=== PATIENT | male | born 1950 | race Caucasian/White ===

== ENCOUNTER 2017-08-23 12:45 | Outpatient (RCR) | payer OTHER, MEDICARE, SELFPAY ==
[2017-07-27 12:26] LABS: Prothrombin Time Fingerstick 26.6 SEC (11.9-14.4)
[2017-08-23 13:01] LABS: Prothrombin Time Fingerstick 27.5 SEC (11.9-14.4)
== END 2017-08-23 13:00 | disposition home or self-care (01) ==
LOC: MTLAB 12:45
PROVIDERS: Family Provider Family Medicine; PCP Family Medicine; Visit Provider Internal Medicine Cardiovascular Disease
DX: Z79.01 Long term (current) use of anticoagulants (principal); I51.9 Heart disease, unspecified
CPT/HCPCS: 36416; 85610

== ENCOUNTER 2017-09-20 10:18 | Outpatient (RCR) | payer OTHER, MEDICARE, SELFPAY ==
[2017-09-20 12:57] LABS: International Normalized Ratio 2.6; Prothrombin Time (Protime)PT. 27.2 SECONDS (11.7-14.9)
[2017-09-20 13:00] LABS: AST(SGOT) 21 U/L (15-37); Alanine Aminotransfer ALT/SGPT 34 U/L (16-61); Albumin, Serum 3.9 g/dL (3.2-5.0); Alkaline Phosphatase 98 U/L (45-117); Bilirubin, Direct 0.22 mg/dL (0.00-0.30); Cholesterol 157 mg/dL (200); Globulin 3.9 g/dL (2.2-4.2); High Density Lipoprotein 38 mg/dL; Protein, Total 7.8 g/dL (6.4-8.2); Triglycerides 251 mg/dL; Very Low Density Lipoprotein 50 mg/dL (5-40)
== END 2017-09-20 15:00 | disposition home or self-care (01) ==
LOC: MTLAB 10:18
PROVIDERS: Family Provider Family Medicine; PCP Family Medicine; Visit Provider Internal Medicine Cardiovascular Disease
DX: E78.5 Hyperlipidemia, unspecified (principal); Z79.899 Other long term (current) drug therapy; Z79.01 Long term (current) use of anticoagulants
CPT/HCPCS: 36415; 80061; 80076; 85610

== ENCOUNTER → 2017-09-26 11:54 | Outpatient (CLI) | payer OTHER, MEDICARE, SELFPAY ==
[2017-09-26 14:12] LABS: Anion Gap 8 (5-15); BUN 19 mg/dL (7-18); BUN/Creat Ratio 15.2 RATIO (10-20); Chloride 103 mmol/L (98-107); Creatinine, Serum 1.25 mg/dL (0.70-1.30); EST Glomerular Filtration Rate 62 mL/min (>60); Est Glom Filt Rate - Afr Amer 74 mL/min (>60); Glucose 174 mg/dL (74-106); Potassium 4.4 mmol/L (3.5-5.1); Sodium Level 139 mmol/L (136-145)
[2017-09-26 14:40] LABS: Microalbumin:Creatinine Ratio 112.2 mg/g CRE (<30 mg/g CRE)
== END ==
PROVIDERS: Family Provider Family Medicine; PCP Family Medicine; Visit Provider Family Medicine
DX: E11.9 Type 2 diabetes mellitus without complications (principal)
CPT/HCPCS: 36415; 80048; 82043; 82570

== ENCOUNTER 2017-10-21 09:19 | Day surgery (SDC) | payer OTHER, MEDICARE, SELFPAY ==
--- NOTE | 2017-10-21 07:30 | AMP_PTH ---
PATIENT: GLENNA MUNGUIA LOC: [facility] [place] U#:[id number] AGE/SX: 66/M ROOM: RE10/21/[address]: Dr. José Miguel Castillo MD : 1950 BED: DIS: 10/21/2017 SPEC #: [id number] RECD: 10/21/17 12:40 STATUS: ORALIA RENba #: [id number] ALEC: 10/21/17 07:[address]: José Miguel Castillo DEPT: SURGICAL PATHOLOGY RECD BY: Dougie Gomez ENTERED: 10/21/17 12:48 SP TYPE: Amputation OTHR DR: Dr. Shahriar Haynes MD Tissues: Finger, NOS Procedures: Decalcification bone/plaque Special Stain Group I Surgery Specimen Level IV AFB Stain (control) GMS Stain (control) HEADER OPERATION: Debridement open fracture with amputation, index finger PRE-OP DIAGNOSIS: Open fracture tuft of distal phalanx left index finger; partial transphalangeal amputation distal phalanx left index finger; Open wound left index fingertip with comminuted nailbed injury TISSUE SUBMITTED: Left index fingertip MICROSCOPIC DIAGNOSIS Left index fingertip, amputation: Focal ulceration with associated acute and chronic inflammation, hemorrhage and bacterial colonizaton. Pieces of bone negative for acute osteomyelitis. Special stains for acid fast bacilli and fungi are negative for organisms; matched controls are appropriate. MARJORIE:bonita 10/26/17 MICROSCOPIC DESCRIPTION Slides are reviewed. GROSS DESCRIPTION Received in fixative is one container labeled with the patient's name and designated left index fingertip. The specimen consists of a portion of digit measuring 3 x 2.5 x 1 cm. A focal area of ulceration is noted at the tip and extending proximally and measures 2 x 0.6 cm. Also present in the container is a detached piece of skin and nail measuring in aggregate 2 x 1.5 x 0.6 cm. Also present in the container is a detached piece of bone measuring 1 x 0.5 x 0.5 cm. Carnival Worker sections are submitted in three cassettes as follows: 1 ? ulcerated area, 2 ? bone from the fingertip, 3 ? detached piece of bone. Cassettes 2 and 3 are submitted after decalcification. / MARJORIE:bonita 10/21/17 TC:2 CPT: 95991, 48004, 11572 x2
[2017-10-21 09:54] VITALS: BP 161/72; PULSE 48; RESP 16; TEMP 36.1; O2SAT 97; BMI 37.6
--- NOTE | 2017-10-21 10:40 | PCM.HP.BLA ---
History and Physical Date of Admission: 10/21/17 HISTORY OF PRESENT ILLNESS 66 year old man presents with a 1 week history of an injury to his left index finger tip from an oscillating saw injury. He went to the urgent care center where an xray showed a tuft fracture of the distal phalanx as a transphalangeal amputation. The tip was cleansed and wrapped. He was placed on Keflex. He presents today for further evaluation and treatment. Patient denies any fever. PAST MEDICAL HISTORY CAD. Atrial fibrillation. Inguinal hernia. CVA. SAUD. Hyperlipidemia. Hypertension. DVT. PAST SURGICAL HISTORY Hernia repair. CABG. MEDICATIONS Lipitor. Aspirin. Amiodarone. Lexapro. Lasix. Lopressor. MVI. [place]. Coumadin. ALLERGIES None. FAMILY HISTORY Noncontributory. SOCIAL HISTORY Patient does not smoke. Patient does not drink alcohol. REVIEW OF SYSTEMS General - Denies fever, fatigue, and weight loss. Eyes - Denies cataracts, glaucoma. ENT - Denies nasal congestion, sore throat. Endocrine - Denies excessive thirst and urination. Skin - Has open fracture with partial amputation left index finger tip. Musculoskeletal - Denies joint pain, joint stiffness, weakness of muscles and joints, back pain, and arthritis. Neuro - Denies headaches. Cardiovascular - Denies chest pain. Denies fatigue. Had CVA. Had CABG. Psych - Denies anxiety and depression. Respiratory - Denies cough and shortness of breath. Gastrointestinal - Denies nausea, vomiting, diarrhea, and constipation. Hematologic - Has abnormal bruising on Coumadin. Has DVT. Genitourinary - Denies hematuria and urinary frequency. PHYSICAL EXAMINATION General - Alert and oriented. HEENT - PERRL. EOMI. Throat is clear. Neck - Supple and nontender. No cervical andenopathy. Lungs - Clear to auscultation. Heart - Regular rate and rhythm. Abdomen - Soft and nondistended. Extremities - FROM except for left index finger where there is a distal tip amputation through tuft of distal phalanx. There is a comminuted nail bed injury on ulnar aspect with nail plate missing. Measures 1 x 0.6 cm. There is an open fracture. There is a 2 cm laceration extending from nail bed injury onto volar aspect of finger. He can flex and extend his index finger. Fingers are warm with good capillary refill. Radial pulses are palpable. No axillary adenopathy. Neuro - CN II - XII grossly intact. IMPRESSION 1. Open fracture tuft of distal phalanx left index finger. 2. Partial transphalangeal amputation distal phalanx left index finger. 3. Open wound left index finger tip with comminuted nail bed injury. PLAN Xray reviewed. Recommend operative debridement of this open fracture with partial ostectomy for osteomyelitis. Patient wanted to know options for saving length of the finger. Told him the nail bed would need to be repaired with a possible nail bed graft from the big toe. If there is too much destruction of the nail bed secondary to the oscillating nature of the injury, then can excise the nail bed complex and proceed with a cross finger flap and skin grafting. This would necessitate a second procedure at 3 weeks which is a division and inset of the flap. There is an increased risk of finger stiffness from his age. 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 He doesn't know if he can take that much time off with two surgeries. If there is too much destruction secondary to the oscillating nature of the injury, then would proceed with a revision amputation. This would get him back to work the quickest. He understands that an amputation may be necessary and wishes to proceed. If the finger length can be preserved without too much trouble then proceed. Otherwise proceed with the amputation. Surgery can be done under digital metacarpal block and IV sedation on an outpatient basis. Patient was informed of the risks and complications of the procedure including alternatives to surgery. These were discussed with him personally. He voices understanding and wishes to proceed. Some of the risks and complications were included in a form from the [employer]. Some of the risks and complications that were discussed included but were not inclusive of failure to diagnose including symptom relief, pain, infection, numbness, stiffness, loss of digit, RSD, need for further surgery, contracture and wound healing problems. Will proceed with the surgery tomorrow. Continue his Keflex.
[2017-10-21] MEDS: Cefazolin 2 GM in 0.9% Normal Saline 100 ML IV (11:26)
--- NOTE | 2017-10-21 12:21 | PCM.IMDPSTOP ---
Immediate Post-Op Note Date of Procedure: 10/21/17 Primary Surgeon/Physician: José Miguel Castillo lumber sticker: None Pre-Operative Diagnosis: 1. Open fracture tuft of distal phalanx left index finger. 2. Partial transphalangeal amputation distal phalanx left index finger. 3. Open wound left index finger tip with comminuted nail bed injury. Post-Operative Diagnosis: 1. Open comminuted fracture distal phalanx left index finger. 2. Complete comminuted transphalangeal amputation distal phalanx left index finger. 3. Open wound left index finger tip with comminuted nail bed injury. Surgery/Procedure Performed:: Revision amputation left index finger through distal middle phalanx. Description of Surgical Findings:: 66 year old man presents with a 1 week history of an injury to his left index finger tip from an oscillating saw injury. He went to the urgent care center where an xray showed a tuft fracture of the distal phalanx as a transphalangeal amputation. The tip was cleansed and wrapped. He was placed on Keflex. He presents today for further evaluation and treatment. Patient denies any fever. Today the patient underwent revision amputation left index finger through distal middle phalanx. Total tourniquet time -36 minutes. Estimated Blood Loss: 2 ml. Specimen's removed: Amputation stump left index finger tip to Pathology. Drains: None. Type of Anesthesia:: Local - digital metacarpal block with Marcaine by Anesthesia. - Admit VTE Documentation VTE Present on Admission: No - Patient is on Coumadin. VTE Mechan Device Prophylaxis: SCD's VTE Pharm Prophylaxis ordered?: No
--- NOTE | 2017-10-21 12:28 | PCM.DC ---
You will use the following diet at home:: No restrictions Discharge Activity: May not drive while taking narcotic pain medications., May Shower - in one day. Place plastic bag over left hand when showering., - - no heavy lifting with left hand. May shower in (days): 1 - wear plastic bag over left hand when showering. May resume sexual activity in: No Restrictions Weight Bearing Status: Weight bearing as tolerated Lifting Restrictions: no heavy lifting with left hand. Keep extremity elevated above heart level: Left Arm Call your doctor if your incision/area has: Continuous Slow Oozing, Sudden Increased Bleeding, Increased Pain/ Swelling, Increased Redness, Foul Smelling Discharge, Swelling at the incision site Call your doctor if you observe: Fever of 101 or Higher, Coldness, Increased Pain, Shortness of breath, Chest pain, Calf discomfort, Uncontrolled pain Suture Line Care: - - after dressing removed in the office, apply antibiotic ointment to suture line daily. Change Dressing in (Days):: 7 - will change dressing in office. Cleanse incision/area with: - - wear plastic bag over left hand when showering. Allergies/Adverse Reactions: Allergies No Known Allergies Allergy (Verified 10/20/17 16:10) Medications to take at Discharge Escitalopram Oxalate [Lexapro] 20 mg PO DAILY 11/16/13 Aspirin [Aspirin, Baby] 81 mg PO DAILY@0800 #30 tab.chew 12/18/13 Atorvastatin Calcium [Lipitor] 80 mg PO QHS #30 tablet 12/18/13 Multivitamins,Therapeutic [Multivitamin] 1 tablet PO DAILYCM #30 tablet 12/18/13 Warfarin [Coumadin] 1 mg PO UD 03/22/14 Amiodarone HCl [Cordarone] 200 mg PO DAILY 09/26/14 Furosemide [Lasix] 40 mg PO DAILY PRN PRN 09/26/14 Metoprolol Tartrate [Lopressor (beta dario)] 50 mg PO BID 09/26/14 Oxycodone HCl/Acetaminophen [Percocet 5/325] 1 - 2 tab PO 4X/DAY PRN PRN 4 Days #30 tab 10/21/17 The following prescriptions were given: Oxycodone HCl/Acetaminophen [Percocet 5/325] 1 - 2 tab PO 4X/DAY PRN PRN 4 Days #30 tab PRN Reason: Pain Primary Care Physician: Shahriar Haynes MD [Primary Care Provider] - Please Follow Up With: Joés Miguel Castillo MD When: one week. call [phone] for appt. Proposed Discharge Date: 10/21/17
--- NOTE | 2017-10-21 12:31 | DCINST_ITS ---
You will use the following diet at home:: No restrictions Discharge Activity: May not drive while taking narcotic pain medications., May Shower - in one day. Place plastic bag over left hand when showering., - - no heavy lifting with left hand. May shower in (days): 1 - wear plastic bag over left hand when showering. May resume sexual activity in: No Restrictions Weight Bearing Status: Weight bearing as tolerated Lifting Restrictions: no heavy lifting with left hand. Keep extremity elevated above heart level: Left Arm Call your doctor if your incision/area has: Continuous Slow Oozing, Sudden Increased Bleeding, Increased Pain/ Swelling, Increased Redness, Foul Smelling Discharge, Swelling at the incision site Call your doctor if you observe: Fever of 101 or Higher, Coldness, Increased Pain, Shortness of breath, Chest pain, Calf discomfort, Uncontrolled pain Suture Line Care: - - after dressing removed in the office, apply antibiotic ointment to suture line daily. Change Dressing in (Days):: 7 - will change dressing in office. Cleanse incision/area with: - - wear plastic bag over left hand when showering. Allergies/Adverse Reactions: Allergies No Known Allergies Allergy (Verified 10/20/17 16:10) Medications to take at Discharge Escitalopram Oxalate [Lexapro] 20 mg PO DAILY 11/16/13 Aspirin [Aspirin, Baby] 81 mg PO DAILY@0800 #30 tab.chew 12/18/13 Atorvastatin Calcium [Lipitor] 80 mg PO QHS #30 tablet 12/18/13 Multivitamins,Therapeutic [Multivitamin] 1 tablet PO DAILYCM #30 tablet Warfarin [Coumadin] 1 mg PO UD 03/22/14 Amiodarone HCl [Cordarone] 200 mg PO DAILY 09/26/14 Furosemide [Lasix] 40 mg PO DAILY PRN PRN 09/26/14 Metoprolol Tartrate [Lopressor (beta dario)] 50 mg PO BID 09/26/14 Oxycodone HCl/Acetaminophen [Percocet 5/325] 1 - 2 tab PO 4X/DAY PRN PRN 4 Days #30 tab 10/21/17 The following prescriptions were given: Oxycodone HCl/Acetaminophen [Percocet 5/325] 1 - 2 tab PO 4X/DAY PRN PRN 4 Days #30 tab PRN Reason: Pain Primary Care Physician: Shahriar Haynes MD [Primary Care Provider] - Please Follow Up With: José Miguel Castillo MD When: one week. call [phone] for appt. Proposed Discharge Date: 10/21/17
[2017-10-21 12:45] VITALS: BP 152/79; BP 161/72; PULSE 50; RESP 16; TEMP 36.1; O2SAT 95
--- NOTE | 2017-10-21 17:45 | PCM.OPRPT ---
Report of Operation Date of Procedure: 10/21/17 Pre-Operative Diagnosis: 1. Open fracture tuft of distal phalanx left index finger. 2. Partial transphalangeal amputation distal phalanx left index finger. 3. Open wound left index finger tip with comminuted nail bed injury. Post-Operative Diagnosis: 1. Open comminuted fracture distal phalanx left index finger. 2. Complete comminuted transphalangeal amputation distal phalanx left index finger. 3. Open wound left index finger tip with comminuted nail bed injury. Surgery/Procedure Performed:: Revision amputation left index finger through distal middle phalanx. Description of Surgical Findings:: 66 year old man presents with a 1 week history of an injury to his left index finger tip from an oscillating saw injury. He went to the urgent care center where an xray showed a tuft fracture of the distal phalanx as a transphalangeal amputation. The tip was cleansed and wrapped. He was placed on Keflex. Patient denies any fever. Patient was informed of the risks and complications of the procedure including alternatives to surgery. These were discussed with him personally. He voices understanding and wishes to proceed. Some of the risks and complications were included in a form from the [employer]. Some of the risks and complications that were discussed included but were not inclusive of failure to diagnose including symptom relief, pain, infection, numbness, stiffness, loss of digit, RSD, need for further surgery, contracture and wound healing problems. Total tourniquet time - 36 minutes. attendance secretary: None Type of Anesthesia:: Local - digital metacarpal block with Marcaine by Anesthesia. Specimen's removed: Amputation stump left index finger tip to Pathology. Drains: None. Estimated Blood Loss (mL): 2 ml. Description of Procedure: Patient was taken to OR in supine position and his left hand was prepped and draped in the usual fashion. He had undergone a digital metacarpal block with Marcaine in the preop area by Anesthesia. SCD's were placed for DVT prophylaxis. Perioperative antibiotics were given intravenously. The finger tourniquet was administered. Upon loupe magnification i initially debrided the bony fracture. I removed the nail plate to get better exposure. The fracture was more than just a chip fracture on xray. It was a complex comminuted fracture with missing bone. After debridement, most of the bone was gone. At this point, it would make no sense to try and save the length of the finger since there is no underlying bony support for the tip. So I decided to proceed with the tip amputation. I initially tried to amputate at the level of the DIP joint. I marked dorsal and volar skin flaps with the volar flap being longer to advance anteriorly for closure. Incisions were made through the skin and the extensor and flexor tendons until the DIP joint was seen. After the tip amputation, the specimen was sent to Pathology for analysis. The articular surface of the middle phalanx was roughened and not smooth indicative of some arthritic changes. I rasped some of the irregularities to make it smoother for the skin flap. I dissected free the ulnar and radial digital nerves and placed them on stretch. I excised the ends and allowed the digital nerves to retract proximally to minimize neuroma formation. The wound was irrigated with saline. I tried to closed the volar skin flap anteriorly. It was a tight fit. I had to shorten the volar skin flap a little bit because of traumatic lacerations present that I felt may increase risk of suboptimal healing so further debridement was done. Therefore I had to shorten the bone a little bit more to allow a tension free closure. I went just proximal to the articular surface and cut the distal portion of the middle phalanx with bone cutters. This specimen went with the rest of the tissue to Pathology. The bony edges were rasped to smooth out the edges. The skin flaps were then easily closed without tension. I closed the skin flaps in multiple layers with 5-0 Monocryl interrupted sutures for the dermis. The skin was approximated with 5-0 Nylon simple interrupted sutures. The tourniquet was released after 36 minutes. Hemostasis was obtained with gentle pressure and elevation. Antibiotic ointment was applied to the suture line followed by xeroform gauze. This was then covered with 2x2 gauze and 2 inch guilherme wrap. Patient tolerated the procedure well and was sent to PACU in satisfactory condition. He was sent home on pain medication. He states he still has antibiotics at home from the urgent care center that he will finish. He will keep his left hand elevated and wear a plastic bag over his left hand when showering. He will followup in the office in a week for a wound check and for discussion of the pathology report. The sutures will be removed in 2-3 weeks. After the dressing removed in the office, will encourage range of motion exercises to minimize stiffness. If stiffness persists, then will set him up with OT for range of motion exercises, strengthening and edema management. Grafts/Implants Used: None. - Complications None. - Admit VTE Documentation VTE Present on Admission: No - Patient is on Coumadin. VTE Mechan Device Prophylaxis: SCD's VTE Pharm Prophylaxis ordered?: No Code Visit Surgery Charges CPT - 47233 ICD-10 - S62.631B, S68.611A, S61.301A
== END 2017-10-21 12:45 | disposition home or self-care (01) ==
LOC: SDC 09:24 → AC 09:24
PROVIDERS: Family Provider Family Medicine; PCP Family Medicine; Visit Provider Surgery
PROC: (CPT 26236; principal; 2017-10-21 07:15)
DX: S62.631B Displaced fracture of distal phalanx of left index finger, initial encounter for open fracture (principal); W29.8XXA Contact with other powered hand tools and household machinery, initial encounter; S68.621A Partial traumatic transphalangeal amputation of left index finger, initial encounter; Y92.9 Unspecified place or not applicable; Y99.9 Unspecified external cause status; I25.10 Atherosclerotic heart disease of native coronary artery without angina pectoris; I48.91 Unspecified atrial fibrillation; G47.33 Obstructive sleep apnea (adult) (pediatric); E78.5 Hyperlipidemia, unspecified; I10 Essential (primary) hypertension; Z86.718 Personal history of other venous thrombosis and embolism; Z86.73 Personal history of transient ischemic attack (TIA), and cerebral infarction without residual deficits; Z79.899 Other long term (current) drug therapy; Z79.82 Long term (current) use of aspirin; Z79.01 Long term (current) use of anticoagulants
CPT/HCPCS: 26236; 64450; 88305; 88311; 88312; J7120

== ENCOUNTER 2017-11-11 09:34 | Outpatient (RCR) | payer OTHER, MEDICARE, SELFPAY ==
[2017-11-11 12:22] LABS: Prothrombin Time (Protime)PT. 31.1 SECONDS (11.7-14.9)
== END 2017-11-22 13:21 | disposition home or self-care (01) ==
LOC: MTLAB 09:34
PROVIDERS: Family Provider Family Medicine; PCP Family Medicine; Visit Provider Internal Medicine Cardiovascular Disease
DX: Z79.01 Long term (current) use of anticoagulants (principal)
CPT/HCPCS: 36415; 36416; 85610

== ENCOUNTER 2017-11-28 11:35 | Outpatient (RCR) | payer OTHER, MEDICARE, SELFPAY ==
[2017-11-28 11:55] LABS: Prothrombin Time Fingerstick 29.3 SEC (11.9-14.4)
== END 2017-11-28 12:00 | disposition home or self-care (01) ==
LOC: MTLAB 11:35
PROVIDERS: Family Provider Family Medicine; PCP Family Medicine; Visit Provider Internal Medicine Cardiovascular Disease
DX: Z79.01 Long term (current) use of anticoagulants (principal)
CPT/HCPCS: 36416; 85610

== ENCOUNTER 2018-03-14 08:55 | Outpatient (RCR) | payer OTHER, MEDICARE, SELFPAY ==
[2018-03-14 09:16] LABS: Prothrombin Time Fingerstick 30.3 SEC (11.9-14.4)
== END 2018-03-14 10:00 | disposition home or self-care (01) ==
LOC: MTLAB 08:55
PROVIDERS: Family Provider Family Medicine; PCP Family Medicine; Visit Provider Internal Medicine Cardiovascular Disease
DX: Z79.01 Long term (current) use of anticoagulants (principal)
CPT/HCPCS: 36416; 85610

== ENCOUNTER → 2018-03-30 10:26 | Outpatient (CLI) | payer OTHER, MEDICARE, SELFPAY ==
[2018-03-30 12:37] LABS: Microalbumin,Random Urine 65.6 mg/L (NO RANGE EST.); Microalbumin:Creatinine Ratio 30.8 mg/g CRE (<30 mg/g CRE)
[2018-03-30 12:45] LABS: AST(SGOT) 24 U/L (15-37); Alanine Aminotransfer ALT/SGPT 31 U/L (16-61); Albumin, Serum 4.3 g/dL (3.2-5.0); Alkaline Phosphatase 85 U/L (45-117); Anion Gap 8 (5-15); BUN 24 mg/dL (7-18); BUN/Creat Ratio 20.7 RATIO (10-20); Bilirubin, Direct 0.36 mg/dL (0.00-0.30); Chloride 108 mmol/L (98-107); Cholesterol 133 mg/dL (200); Creatinine, Serum 1.16 mg/dL (0.70-1.30); EST Glomerular Filtration Rate 67 mL/min (>60); Est Glom Filt Rate - Afr Amer 81 mL/min (>60); Globulin 3.9 g/dL (2.2-4.2); Glucose 136 mg/dL (74-106); High Density Lipoprotein 42 mg/dL; Potassium 4.7 mmol/L (3.5-5.1); Protein, Total 8.2 g/dL (6.4-8.2); Sodium Level 141 mmol/L (136-145); Triglycerides 100 mg/dL; Very Low Density Lipoprotein 20 mg/dL (5-40)
== END ==
PROVIDERS: Family Provider Family Medicine; PCP Family Medicine; Visit Provider Family Medicine
DX: E11.9 Type 2 diabetes mellitus without complications (principal)
CPT/HCPCS: 36415; 80048; 80061; 80076; 82043; 82570

== ENCOUNTER 2018-05-08 10:52 | Outpatient (RCR) | payer OTHER, MEDICARE, SELFPAY ==
[2018-05-08 11:05] LABS: Prothrombin Time Fingerstick 33.1 SEC (11.9-14.4)
== END 2018-05-08 12:00 | disposition home or self-care (01) ==
LOC: MTLAB 10:52
PROVIDERS: Family Provider Family Medicine; PCP Family Medicine; Visit Provider Internal Medicine Cardiovascular Disease
DX: I48.0 Paroxysmal atrial fibrillation (principal); Z79.01 Long term (current) use of anticoagulants; Z51.81 Encounter for therapeutic drug level monitoring
CPT/HCPCS: 36416; 85610

== ENCOUNTER → 2018-07-04 12:25 | Outpatient (CLI) | payer OTHER, MEDICARE, SELFPAY ==
[2018-07-04 08:27] VITALS: BMI 37.2
[2018-07-04 12:45] LABS: Prothrombin Time Fingerstick 25.9 SEC (11.9-14.4)
[2018-07-04 14:24] LABS: Hemoglobin A1c 6.9 % (4.2-6.3)
--- OUTSIDE RECORDS SUMMARY | 2018-08-20 14:44 | XMS RPT_ITS ---
:1950 Author Organization OHIP Support Name Relationship Address Phone R Unavailable Unavailable Unavailable TALISHA MUNGUIA Unavailable [address] + [place] [address] R Unavailable Unavailable Unavailable TALISHA MUNGUIA Unavailable [address] + [place] [address] R Unavailable Unavailable Unavailable TALISHA MUNGUIA Unavailable [address] + [place] [address] R Unavailable Unavailable Unavailable TALISHA MUNGUIA Unavailable [address] + [place] [address] R Unavailable Unavailable Unavailable TALISHA MUNGUIA Unavailable [address] + [place] [address] R Unavailable Unavailable Unavailable TALISHA MUNGUIA Unavailable [address] + [place] [address] R Unavailable Unavailable Unavailable TALISHA MUNGUIA Unavailable [address] + [place] [address] R Unavailable Unavailable Unavailable TALISHA MUNGUIA Unavailable [address] + [place] [address] R Unavailable Unavailable Unavailable TALISHA MUNGUIA Unavailable [address] + [place] [address] R Unavailable Unavailable Unavailable TALISHA MUNGUIA Unavailable [address] + [place] [address] R Unavailable Unavailable Unavailable TALISHA MUNGUIA Unavailable [address] + [place] [address] R Unavailable Unavailable Unavailable TALISHA MUNGUIA Unavailable [address] + [place] [address] R Unavailable Unavailable Unavailable TALISHA MUNGUIA Unavailable [address] + [place] [address] R Unavailable Unavailable Unavailable NILDA TALISHA Unavailable [address] + [place] [address] R Unavailable Unavailable Unavailable MUNGUIA, TALISHA Unavailable [address] + [place] [address] R Unavailable Unavailable Unavailable NILDA TALISHA Unavailable [address] + [place] [address] R Unavailable Unavailable Unavailable MUNGUIA, TALISHA Unavailable [address] + [place] [address] R Unavailable Unavailable Unavailable MUNGUIA, TALISHA Unavailable [address] + [place] [address] R Unavailable Unavailable Unavailable MUNGUIA, TALISHA Unavailable [address] + [place] [address] R Unavailable Unavailable Unavailable MUNGUIA, TALISHA Unavailable [address] + [place] [address] Care Team Providers Name Role Phone Shai Solisril Attending Unavailable Haynes, Shahriar Referring Unavailable Will, William Attending Unavailable Will, [place] [employer] Referring Unavailable Haynes, Shahriar Primary Care Unavailable Will, William Attending Unavailable Haynes, Shahriar Primary Care Unavailable Will, William Attending Unavailable Haynes, Shahriar Primary Care Unavailable Will, [place] [employer] Attending Unavailable Haynes, Shahriar Primary Care Unavailable Haynes, Shahriar Attending Unavailable Haynes, Shahriar Referring Unavailable Haynes, Shahriar Primary Care Unavailable SlabJosé Miguel bartlett Attending Unavailable Haynes, Shahriar Referring Unavailable Haynes, Shahriar Primary Care Unavailable SlabyJosé Miguel Attending Unavailable SlabyJosé Miguel Referring Unavailable Haynes, Shahriar Primary Care Unavailable SlabJosé Miguel bartlett Attending Unavailable Slaby, José Miguel Referring Unavailable Haynes, Shahriar Primary Care Unavailable José Miguel Castillo Consulting Unavailable Slaby, José Miguel Attending Unavailable Haynes, Shahriar Referring Unavailable Haynes, Shahriar Primary Care Unavailable Slabdhruv, José Miguel Attending Unavailable Haynes, Shahriar Referring Unavailable Haynes, Shahriar Primary Care Unavailable Lisa Castro Attending Unavailable Lisa Castro Attending Unavailable Phoebe Estevez Attending Unavailable Will, [place] [employer] Attending Unavailable Haynes, Shahriar Primary Care Unavailable Will, [place] [employer] Referring Unavailable Ricci Cabrera Attending Unavailable Haynes, Shahriar Referring Unavailable Haynes, Shahriar Primary Care Unavailable Will, [place] [employer] Attending Unavailable Will, [place] [employer] Referring Unavailable Haynes, Shahriar Primary Care Unavailable Will, [place] [employer] Attending Unavailable Will, [place] [employer] Referring Unavailable Haynes, Shahriar Primary Care Unavailable Haynes, Shahriar Attending Unavailable Haynes, Shahriar Referring Unavailable Haynes, Shahriar Primary Care Unavailable Will, [place] [employer] Attending Unavailable Will, [place] [employer] Referring Unavailable Haynes, Shahriar Primary Care Unavailable PROBLEMS PROBLEMS DATE TYPE CONDITION / CODE ATTENDING STATUS SOURCE 07/04/2018 Unknown Z79.01 - halfway Will, William Active [facility] (current) use of Community anticoagulants / Hospital Z79.01(ICD-10) Repository 07/04/2018 Unknown I48.0 - Paroxysmal Will, [place] [employer] Active [facility] atrial fibrillation / Community I48.0(ICD-10) Hospital Repository 07/04/2018 Unknown Z95.1 - Presence of Will, William Active [facility] aortocoronary bypass Community graft / Z95.1(ICD-10) Hospital Repository 07/04/2018 Unknown I10 - Essential Will, William Active [facility] (primary) Community hypertension / Hospital I10(ICD-10) Repository 07/04/2018 Unknown E78.00 - Pure Will, [place] [employer] Active [facility] hypercholesterolemia, Community unspecified / Hospital E78.00(ICD-10) Repository 07/04/2018 Unknown I50.32 - Chronic Will, [place] [employer] Active [facility] diastolic Community (congestive) heart Hospital failure / Repository I50.32(ICD-10) 05/25/2018 Unknown Z51.81 - Encounter Will, [place] [employer] Active [facility] for therapeutic drug Community level monitoring / Hospital Z51.81(ICD-10) Repository 03/30/2018 Unknown E11.9 - Type 2 Haynes, Shahriar Active [facility] diabetes mellitus Community without complications Hospital / E11.9(ICD-10) Repository 11/28/2017 Unknown I48.91 - Unspecified Roof, Ricci Meda Active [facility] atrial fibrillation / Community I48.91(ICD-10) Hospital Repository 10/23/2017 Unknown G89.18 - Other acute José Miguel Castillo Active [facility] postprocedural pain / Community G89.18(ICD-10) Hospital Repository 11/09/2017 Unknown S62.631B - Displaced José Miguel Castillo Active [facility] fracture of distal Community phalanx of left index Hospital finger, initial Repository encounter for open fracture / S62.631B(ICD-10) 11/09/2017 Unknown S68.621A - Partial José Miguel Castillo Active [facility] traumatic Community transphalangeal Hospital amputation of left Repository index finger, initial encounter / S68.621A(ICD-10) 11/09/2017 Unknown S61.301A - SlabJosé Miguel bartlett Active [facility] Unspecified open Community wound of left index Hospital finger with damage to Repository nail, initial encounter / S61.301A(ICD-10) 09/22/2017 Unknown E78.5 - Will, [place] [employer] Active [facility] Hyperlipidemia, Community unspecified / Hospital E78.5(ICD-10) Repository 09/22/2017 Unknown Z79.899 - Other long Will, William Active [facility] term (current) drug Community therapy / Hospital Z79.899(ICD-10) Repository PROCEDURES PROCEDURES No Procedure Records FoundRESULTS RESULTS HEMOGLOBIN A1C Collected: 07/04/2018 Status: F Source: [place] 12:41 PM [facility] REPOSITORY TYPE CODE TESTS RESULT OUT OF RANGE REFERENCE UNITS LAB L501.9985 4.2-6.3 % High HGB A1C 6.9 Performed By: #### L501.9985 #### [facility] [address] [place] [address] [place], [place], [address] PROTIME W/INR Collected: 07/04/2018 Status: F Source: [place] 12:36 PM [facility] REPOSITORY TYPE CODE TESTS RESULT OUT OF REFERENCE UNITS RANGE LAB L9200.1001 11.9-14.4 SEC High PROTIME ISTAT 25.9 Result Comment: Reference Range 11.9 - 14.4 LAB L9200.2000 Normal INR ISTAT 2.20 Result Comment: Critical Value > 3.5 Performed By: #### L9200.0000 #### [facility] [address] [address] [place], [place] [address] CARDIOLOGY VISIT Observed: 07/04/2018 Status: F Source: [place] REPORT 11:04 AM [facility] REPOSITORY [facility] [address] [place] [address] OFFICE VISIT Date of Service: 07/04/18 MR#: [id number] Acct: [id number] Name: GLENNA MUNGUIA Rep #: [id number] : 1950 Provider: William Solis MD Age/Sex: 67/M [place] [facility] [place]: Signed HPI HPI Chief Complaint: Follow up Details: GLENNA MUNGUIA, is a 67 M who presents to the office today for a cardiovascular outpatient follow-up. He has a history of coronary artery disease status post bypass surgery in November 2013 with a BEGUM to the LAD, SVG to posterior descending artery, and SVG to obtuse marginal branch. He also has a history of paroxysmal atrial fibrillation with cardioversion in 2013 and 2014, pulmonary vein isolation in November 2013, ligation of the left atrial appendage in November 2013, and CVA. He has lost a significant amount of weight by cutting out sugar from his diet. He says that he is breathing so much better. Pt. denies chest, arm, jaw, or neck discomfort. 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 Pt. denies symptoms of CHF, palpitations, worsening/changing lightheadedness, dizziness, near syncope, or syncopal episodes. Pt. denies worsening edema or claudication issues. Pt. denies orthopnea, and PND. His physical exam demonstrates clear lung powell regular rate and rhythm and no pedal edema. Intake Vital Signs07/04/18 Height 5 ft 8 in 07/04/18 Weight: 245 lb 07/04/18 Body Mass Index (BMI) 37.2 07/04/18 Blood Pressure 112/62 07/04/18 Respiratory Rate 18 07/04/18 Pulse Rate 60 Intake Visit Reasons: 7 m fu Allergies No Known Allergies Allergy (Verified 07/04/18 08:27) Medications Escitalopram Oxalate [Lexapro] 20 mg PO DAILY 11/16/13 [History Confirmed 07/04/18] Aspirin [Aspirin, Baby] 81 mg PO DAILY@0800 #30 tab.chew 12/18/13 [Rx Confirmed 07/04/18] Multivitamins,Therapeutic [Multivitamin] 1 tab PO DAILYCM #30 tab 12/18/13 [Rx Confirmed 07/04/18] metformin 500 mg tablet 500 mg PO QDAY tab 11/17/17 [History Confirmed 07/04/18] amiodarone 200 mg tablet 200 mg PO DAILY #90 tab 07/04/18 [Rx Confirmed 07/04/18] atorvastatin 80 mg tablet 80 mg PO QHS #90 tab 07/04/18 [Rx Confirmed 07/04/18] furosemide 40 mg tablet 40 mg PO DAILY PRN PRN #90 tab 07/04/18 [Rx Confirmed 07/04/18] metoprolol tartrate 50 mg tablet 50 mg PO BID #180 tab 07/04/18 [Rx Confirmed 07/04/18] warfarin 1 mg tablet 1 mg PO DAILY #90 tab 07/04/18 [Rx Confirmed 07/04/18] [facility] Medical History Diminished pulses in lower extremity (Chronic) Non-rheumatic tricuspid valve insufficiency (Chronic) Nonrheumatic aortic valve insufficiency (Chronic) Nonrheumatic mitral valve insufficiency (Chronic) Paroxysmal atrial fibrillation (Chronic) Chronic diastolic heart failure (Chronic) Hypertension (Chronic) Primary hypercoagulable state (Chronic) Cardiomyopathy, hypertrophic obstructive (Chronic) Hyperlipidemia (Chronic) Atherosclerotic heart disease of [place] coronary artery without angina pectoris (Chronic) halfway (current) use of anticoagulants (Acute) 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) Type 2 diabetes mellitus (Chronic) Hernia (Chronic) Stroke (Chronic) Open wound of left index finger with damage to nail (Resolved) Anemia (Inactive) Heart failure (Inactive) Open displaced fracture of distal phalanx of left index finger (Inactive) 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, initial encounter (Inactive) Shortness of breath (Inactive) Surgical History Presence of aortocoronary bypass graft (Chronic) 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 (Resolved) History of hernia repair (Resolved) Family History Father CAD (coronary artery disease) Mother Cancer Social History Smoking Status: Never smoker alcohol intake: never substance use type: does not use caffeine: Yes Type: carbonated beverages Number of servings: 2 what type of physical activity do you participate in: walking frequency: daily seatbelt use: always do you feel safe at home: Yes ROS Const Const: Negative for fatigue, weakness, difficulty sleeping, frequent falls, excessive sweating or headache(s) Eyes Eyes: Negative for loss of peripheral vision, transient loss of vision, blurry vision, tunnel vision or double vision ENT ENT: Negative for headache(s), dizziness, Nosebleed/epistaxis or balance problems Cardio Chest Pain: No Palpitations: No Edema: Left (trace LLE edema) Muscle aches with walking: None Resp Respiratory: Negative for SOB with activity, SOB at rest, SOB orthopnea\SOB lying down, paroxysmal nocturnal dyspnea or Cough GI GI: Negative nausea, heartburn, black,tarry stools or vomiting : Negative for hematuria Musc Musc: Negative for balance problems, muscle aches/ myalgia, muscle weakness or joint pain Skin Skin: Negative non-healing lesions, unusual bruising or rash Neuro Neuro: Negative for weakness, frequent falls, headache(s), blurry vision, double vision, dizziness, lightheadedness, orthostatic symptoms, near syncope, syncope or lack of coordination Emmanuel Hematologic/Lymphatic: Negative for easy bruising or easy bleeding Endo Endo: Negative for fatigue, excessive sweating or increased thirst/drinking Psych Psych: Negative for anxiety or depression Allergy Allergy/Immunology: Negative for hives, Negative for rash Cardiology Exam Const Appearance: cooperative, healthy appearing, well developed, well groomed and no acute distress Nutritional Appearance: well nourished and average body habitus Orientation: alert, awake and oriented x3 Head Head: normal to inspection, normocephalic and atraumatic Ears: hearing grossly normal bilaterally and external ears normal Nose: external nose normal, nasal mucous membranes and turbinates normal, nares normal, septum normal, no nasal discharge Face and Sinus: face symmetric Mouth: oral mucosae normal, tongue normal, oropharynx normal and moist mucous membranes Teeth and gingiva: dentition normal Throat: posterior oropharynx normal, tonsils normal and uvula midline Eyes General: appearance normal, both eyes and all related structures Eyelids: eyelids normal Conjunctivae: conjunctivae normal Pupils: PERRL, normal by confrontation and accommodation normal EOM: EOM intact bilaterally Neck Neck: normal visual inspection, trachea midline and no JVD JVD: +5 Carotids: normal carotid upstroke and bounding pulses Chest Chest inspection: normal inspection of the chest, symmetric chest movement and normal respiratory effort Auscultation: Bilateral: Clear to Auscultation Cardio Palpation: normal PMI Rate: regular rate Rhythm: regular rhythm Heart sounds: S1 normal, S2 normal and normal, physiologic split S2; negative rub, gallop or murmur GI GI: normal to inspection, soft, no hepatosplenomegaly and bowel sounds present Neuro General: alert, awake, oriented x3, no focal sensory deficit, gait normal and moves all extremities Skin Skin: no rashes or lesions noted Extremities Pulses: Normal: Right Femoral Pulse, Left Femoral Pulse, Right Dorsalis Pedis Pulse, Left Dorsalis Pedis Pulse, Right Posterior Tibial Pulse, Left Posterior Tibial Pulse, Right Radial Pulse, Left Radial Pulse Lower Extremity Edema: None: Bilateral Musculoskel Musculoskeletal: No joint tenderness Psych Psychological: normal affect Assessment AND Plan 1. Presence of aortocoronary bypass graft Z95.1 CABG X 3, 11/22/13, BEGUM-LAD, SVG-PDA, SVG-OM1 bilateral PVI AND ligation of atrial appendage; Plan He appears to be doing well status post bypass surgery he has not had any evidence of angina and my recommendation at this time is for us to continue him on the same medications without making any changes. I do not think there is a reason to pursue any stress testing at this particular time. 2. Essential hypertension I10 Plan He does have a history of hypertension. His blood pressure appears to be well controlled especially with his weight loss. We will continue to maintain the same medications with no changes. 3. Paroxysmal atrial fibrillation I48.0 S/P DCCV in November 2013; pulmonary vein isolation in November 2013; ligation of left atrial appendage in November 2013; Plan He does have a history of paroxysmal atrial fibrillation and is maintaining sinus rhythm on the amiodarone as well as the anticoagulation. Orders Orders: 4. Pure hypercholesterolemia E78.00 Plan He does have a history of hyperlipidemia. His most recent lipid profile demonstrated total cholesterol 133, LDL 71, and HDL of 42. No changes will be made with regard to the above. 5. Chronic diastolic heart failure I50.32 Plan He does have a history of chronic diastolic heart failure. At this time his breathing is so much better most likely from his weight loss. His last echocardiogram had demonstrated mild mitral and aortic regurgitation and mild tricuspid regurgitation. He is in a stable dose of diuretic which will be continued. Thank you for allowing me to participate in the care of your patient. Please don't hesitate to call if any issues arise Plan Detail Other Orders Orders: Other Medications Changed: Refilled: Follow Up 6 Months (jhr) Coding Level of Care Code Off vis,est,level 3 Diagnoses Presence of aortocoronary bypass graft Z95.1 Essential hypertension I10 Hypertension type: essential hypertension Paroxysmal atrial fibrillation I48.0 Pure hypercholesterolemia E78.00 Hyperlipidemia type: pure hypercholesterolemia Chronic diastolic heart failure I50.32 Coding Level of Care Code Off vis,est,level 3 Diagnoses Presence of aortocoronary bypass graft Z95.1 Essential hypertension I10 Hypertension type: essential hypertension Paroxysmal atrial fibrillation I48.0 Pure hypercholesterolemia E78.00 Hyperlipidemia type: pure hypercholesterolemia Chronic diastolic heart failure I50.32 07/04/18 1104 <Electronically signed by William Solis MD> Date William Solis MD Cosigner Signature: Date (if applicable) CC: Shahriar Haynes MD PROTIME W/INR Collected: 05/08/2018 Status: F Source: [place] 11:02 AM [facility] REPOSITORY TYPE CODE TESTS RESULT OUT OF REFERENCE UNITS RANGE LAB L9200.1001 11.9-14.4 SEC High PROTIME ISTAT 33.1 Result Comment: Reference Range 11.9 - 14.4 LAB L9200.2000 Normal INR ISTAT 2.90 Result Comment: Critical Value > 3.5 Performed By: #### L9200.0000 #### [facility] Point of Care [address] [place], [place] [address] MICROALB:CREAT Collected: 03/30/2018 Status: F Source: [place] RATIO,RANDOM UR 10:33 AM [facility] REPOSITORY TYPE CODE TESTS RESULT OUT OF RANGE REFERENCE UNITS LAB L501.1200 NO RANGE EST. mg/dL Normal UR CREAT 213.00 LAB L502.0500 NO RANGE EST. mg/L Normal 65.6 MICROALBUMIN ,UR LAB L502.0600 <30 mg/g CRE mg/g CRE High 30.8 MALB:CREAT Performed By: #### L502.0250 #### [facility] [address] [place], [place], [address] BASIC METABOLIC Collected: 03/30/2018 Status: F Source: [place] PROFILE (BMP) 10:33 AM [facility] REPOSITORY TYPE CODE TESTS RESULT OUT OF RANGE REFERENCE UNITS LAB L501.0100 74-106 mg/dL High GLU 136 Result Comment: Fasting Glucose result greater than or equal to 126 mg/dL suggests DIABETES MELLITUS per A.D.A. criteria. Please note revised GLUCOSE reference range effective 2017. LAB L501.1000 7-18 mg/dL High BUN 24 LAB L501.1100 0.70-1.30 mg/dL Normal CREAT,SERUM 1.16 Result Comment: The validity of the calculated GFR AND GFRAA in patients over 70 years has not been determined. Clinical correlation is essential. LAB L501.1110 >60 mL/min Normal EST GFR 67 Result Comment: Non- GFR Calc LAB L501.1115 >60 mL/min Normal EST GFR - AA 81 Result Comment: GFR Calc LAB L501.1300 10-20 RATIO High BUN/CRE 20.7 LAB L501.2200 8.5-10.1 mg/dL CA Normal 9.0 LAB L501.5300 136-145 mmol/L NA Normal 141 LAB L501.5600 3.5-5.1 mmol/L K Normal 4.7 LAB L501.5900 98-107 mmol/L High CL 108 LAB L501.6100 21.0-32.0 mmol/L Normal CO2 25.0 LAB L501.6200 5-15 Normal GAP 8 Performed By: #### L500.2500, L500.3400, L500.4100 #### [facility] [address] [place], [address] LIVER PROFILE Collected: 03/30/2018 Status: F Source: [place] 10:33 AM [facility] REPOSITORY TYPE CODE TESTS RESULT OUT OF RANGE REFERENCE UNITS LAB L501.1500 6.4-8.2 g/dL Normal T PROT 8.2 LAB L501.1800 3.2-5.0 g/dL Normal ALB 4.3 LAB L501.1950 2.2-4.2 g/dL Normal GLOB 3.9 LAB L501.4100 15-37 U/L Normal AST 24 LAB L501.4305 45-117 U/L Normal ALK P 85 LAB L501.4405 16-61 U/L Normal ALT 31 LAB L501.4600 0.20-1.00 mg/dL High T BILI 1.30 LAB L501.4700 0.00-0.30 mg/dL High D BILI 0.36 Performed By: #### L500.2500, L500.3400, L500.4100 #### [facility] [address] [place], [place], [address] LIPID PROFILE Collected: 03/30/2018 Status: F Source: [place] 10:33 AM [facility] REPOSITORY TYPE CODE TESTS RESULT OUT OF RANGE REFERENCE UNITS LAB L501.4900 200 mg/dL Normal CHOL 133 Result Comment: <200 mg/dL Desirable 200-240 mg/dL Borderline >240 mg/dL High Risk LAB L501.5000 mg/dL Normal TRIG 100 Result Comment: The drugs N-Acetylcysteine and Metamizole may falsely depress this assay. Serum Triglycerides Reference Interval Normal <150 mg/dL Borderline high 150 - 199 mg/dL High 200 - 499 mg/dL Very High > or = 500 mg/dL LAB L501.6400 mg/dL Normal HDL 42 Result Comment: The drugs N-Acetylcysteine and Metamizole may falsely depress this assay. Reference Range HDL <40 mg/dL Low HDL Cholesterol HDL >or= 60 mg/dL High HDL Cholesterol LAB L501.6500 0-130 mg/dL Normal LDL 71 LAB L501.6600 5-40 mg/dL Normal VLDL 20 Performed By: #### L500.2500, L500.3400, L500.4100 #### [facility] [address] [place], [place], [address] PROTIME W/INR Collected: 03/14/2018 Status: F Source: [place] FING[place] 9:08 AM [facility] REPOSITORY TYPE CODE TESTS RESULT OUT OF REFERENCE UNITS RANGE LAB L9200.1001 11.9-14.4 SEC High PROTIME ISTAT 30.3 Result Comment: Reference Range 11.9 - 14.4 LAB L9200.2000 Normal INR ISTAT 2.60 Result Comment: Critical Value > 3.5 Performed By: #### L9200.0000 #### [facility] Point [place] [address] PLASTIC SURGERY Observed: 12/18/2017 Status: F Source: [place] VISIT REPORT 1:48 AM [facility] REPOSITORY [facility] [address] [facility] [address] [place] [address] OFFICE VISIT Date of Service: 11/11/17 MR#: [id number] Acct: [id number] Name: GLENNA MUNGUIA Rep #: [id number] : 1950 Provider: José Miguel Castillo MD Age/Sex: 66/M Location: 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 Required: No Accompanied by: None Is patient in pain?: No Allergies No Known Allergies Allergy (Verified 11/28/17 10:09) Medications Escitalopram Oxalate [Lexapro] 20 mg PO DAILY 11/16/13 [History Confirmed 11/28/17] Aspirin [Aspirin, Baby] 81 mg PO DAILY@0800 #30 tab.chew 12/18/13 [Rx Confirmed 11/28/17] Atorvastatin Calcium [Lipitor] 80 mg PO QHS #30 tab 12/18/13 [Rx Confirmed 11/28/17] Multivitamins,Therapeutic [Multivitamin] 1 tab PO DAILYCM #30 tab 12/18/13 [Rx Confirmed 11/28/17] Warfarin [Coumadin] 1 mg PO UD 03/22/14 [History Confirmed 11/28/17] Amiodarone HCl [Cordarone] 200 mg PO DAILY 09/26/14 [History Confirmed 11/28/17] Furosemide [Lasix] 40 mg PO DAILY PRN PRN 09/26/14 [History Confirmed 11/28/17] Metoprolol Tartrate [Lopressor (beta dario)] 50 mg PO BID 09/26/14 [History Confirmed 11/28/17] metformin 500 mg tablet 500 mg PO QDAY tab 11/17/17 [History Confirmed 11/28/17] [facility] Medical History Heart failure (Chronic) Heart problem (Chronic) Chronic diastolic heart failure (Chronic) Hypertension (Chronic) History of cerebrovascular accident (Chronic) Primary hypercoagulable state (Chronic) Cardiomyopathy, hypertrophic obstructive (Chronic) Hyperlipidemia (Chronic) Diabetes mellitus type II, controlled (Chronic) Atherosclerotic heart disease of [place] coronary artery without angina pectoris (Chronic) 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, initial encounter (Acute) Open wound of left index finger with damage to nail (Acute) 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, initial encounter (Acute) Open displaced fracture of distal phalanx of left index finger (Acute) 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) Anticoagulation goal of INR 2 to 3 (Acute) Atrial fibrillation (Chronic) Coronary artery disease (Chronic) Depression (Chronic) Anemia (Acute) Hernia (Acute) Shortness of breath (Acute) Stroke (Acute) Surgical History Fingertip amputation (Resolved) S/P triple vessel bypass (Resolved) Presence of aortocoronary bypass graft (Chronic) S/P CABG x 3 (Acute) History of hernia repair (Acute) Family History Father CAD (coronary artery disease) Mother Cancer Social History Smoking Status: Never smoker alcohol intake: never substance use type: does not use caffeine: Yes Type: carbonated beverages Number of servings: 2 what type of physical activity do you participate in: walking frequency: daily seatbelt use: always do you feel safe at home: Yes HPI postop surgery 10/21/17: Details: Postop visit from his recent surgery on 10/21/17 where he underwent revision amputation left index finger through distal middle phalanx. Comes in today with mild discomfort on the stump. Incision is dry and intact. Mild swelling seen. He can flex his MP joint without difficulty. There is some flexion at the PIP joint. Pathology is negative for osteomyelitis. Sutures were removed today without difficulty. He will tap the stump to help desensitize the stump. He finished his antibiotics, Keflex, that he [facility]op [facility]. 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 Followup on an as needed basis. Assessment AND Plan Problems 1. Open displaced fracture of distal phalanx of left index finger S62.631B 2. 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, initial encounter S68.611A 3. Open wound of left index finger with damage to nail S61.301A Coding Level of Care Code Global Post Op Diagnoses Open displaced fracture of distal phalanx of left index finger S62.631B 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, initial encounter S68.611A Open wound of left index finger with damage to nail S61.301A 12/18/17 0148 <Electronically signed by José Miguel Castillo MD> Date José Miguel Castillo MD Cosigner Signature: Date (if applicable) CC: CARDIOLOGY VISIT Observed: 11/29/2017 Status: F Source: [facility] REPORT 4:04 PM [facility] REPOSITORY [facility] [address] [place] [address]. [address] [place] [address] OFFICE VISIT Date of Service: 11/28/17 MR#: [id number] Acct: [id number] Name: GLENNA MUNGUIA Rep #: [id number] : 1950 Provider: VICK Cabrera Age/Sex: 66/M [place] [facility] [place] Signed HPI HPI Details: GLENNA MUNGUIA, is a 66 M who presents to the office today for a cardiovascular outpatient follow-up. He has a history of coronary artery disease status post bypass surgery in November 2013 with a BEGUM to the LAD, SVG to posterior descending artery, and SVG to obtuse marginal branch. He also has a history of paroxysmal atrial fibrillation with cardioversion in 2013 and 2014, pulmonary vein isolation in November 2013, ligation of the left atrial appendage in November 2013, and CVA. Pt. denies chest, arm, jaw, or neck discomfort. 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 Pt. denies symptoms of CHF, palpitations, worsening/changing lightheadedness, dizziness, near syncope, or syncopal episodes. Pt. denies worsening edema or claudication issues. Pt. denies orthopnea, PND, fever, chills, blood in urine, blood in stool, myalgia, or unexplainable fatigue. 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 Operator Required: No Accompanied by: none Is patient in pain?: No Allergies No Known Allergies Allergy (Verified 11/28/17 10:09) Medications Escitalopram Oxalate [Lexapro] 20 mg PO DAILY 11/16/13 [History Confirmed 11/28/17] Aspirin [Aspirin, Baby] 81 mg PO DAILY@0800 #30 tab.chew 12/18/13 [Rx Confirmed 11/28/17] Atorvastatin Calcium [Lipitor] 80 mg PO QHS #30 tab 12/18/13 [Rx Confirmed 11/28/17] Multivitamins,Therapeutic [Multivitamin] 1 tab PO DAILYCM #30 tab 12/18/13 [Rx Confirmed 11/28/17] Warfarin [Coumadin] 1 mg PO UD 03/22/14 [History Confirmed 11/28/17] Amiodarone HCl [Cordarone] 200 mg PO DAILY 09/26/14 [History Confirmed 11/28/17] Furosemide [Lasix] 40 mg PO DAILY PRN PRN 09/26/14 [History Confirmed 11/28/17] Metoprolol Tartrate [Lopressor (beta dario)] 50 mg PO BID 09/26/14 [History Confirmed 11/28/17] metformin 500 mg tablet 500 mg PO QDAY tab 11/17/17 [History Confirmed 11/28/17] Ejection fraction %: 65 to 70 PFSH Medical History Heart failure (Chronic) Heart problem (Chronic) Chronic diastolic heart failure (Chronic) Hypertension (Chronic) History of cerebrovascular accident (Chronic) Primary hypercoagulable state (Chronic) Cardiomyopathy, hypertrophic obstructive (Chronic) Hyperlipidemia (Chronic) Diabetes mellitus type II, controlled (Chronic) Atherosclerotic heart disease of [place] coronary artery without angina pectoris (Chronic) 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, initial encounter (Acute) Open wound of left index finger with damage to nail (Acute) 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, initial encounter (Acute) Open displaced fracture of distal phalanx of left index finger (Acute) halfway (current) use of anticoagulants (Acute) Anticoagulation goal of INR 2 to 3 (Acute) Atrial fibrillation (Chronic) Coronary artery disease (Chronic) Depression (Chronic) Anemia (Acute) Hernia (Acute) Shortness of breath (Acute) Stroke (Acute) Surgical History Fingertip amputation (Resolved) S/P triple vessel bypass (Resolved) Presence of aortocoronary bypass graft (Chronic) S/P CABG x 3 (Acute) History of hernia repair (Acute) Family History Father CAD (coronary artery disease) Mother Cancer Social History Smoking Status: Never smoker alcohol intake: never substance use type: does not use caffeine: Yes Type: carbonated beverages Number of servings: 2 what type of physical activity do you participate in: walking frequency: daily seatbelt use: always do you feel safe at home: Yes ROS Const Const: Negative for weakness, body ache, fever(s), chills or fatigue ENT ENT: Negative for dizziness Cardio Chest Pain: No Palpitations: No Edema: None Muscle aches with walking: None Resp Respiratory: Negative for SOB with activity, SOB at rest, SOB orthopnea\SOB lying down or paroxysmal nocturnal dyspnea GI GI: Negative nausea, black,tarry stools, bright, red blood in stools or vomiting blood/hematemesis : Negative for hematuria or frequent nighttime urination/ nocturia Musc Musc: Negative for muscle aches/ myalgia Neuro Neuro: Negative for lightheadedness, near syncope, syncope, orthostatic symptoms, weakness or dizziness Endo Endo: Negative for fatigue Cardiology Exam Const Appearance: cooperative, healthy appearing, comfortable and no acute distress Orientation: alert, awake and oriented x3 Head Head: normal to inspection Mouth: oral mucosae normal Neck Neck: no JVD and normal visual inspection Carotids: normal carotid upstroke Chest Chest inspection: normal inspection of the chest and normal respiratory effort Auscultation: Bilateral: Clear to Auscultation Cardio Rate: regular rate Rhythm: regular rhythm Heart sounds: S1 normal and S2 normal; negative rub or gallop GI GI: normal to inspection Neuro General: alert, awake, oriented x3 and CN's II-XI intact bilaterally Skin Skin: no rashes or lesions noted Extremities Pulses: Normal: Right Posterior Tibial Pulse, Right Radial Pulse, Left Radial Pulse, Diminished: Left Posterior Tibial Pulse Lower Extremity Edema: None: Bilateral Psych Psychological: normal affect Supplemental Info Echocardiogram from January 2014 showed moderate concentric LVH, an estimated ejection fraction of 65%, mild mitral valve insufficiency, mild aortic valve insufficiency, and mild tricuspid valve insufficiency. Heart catheterization from October 2013 showed angiographically normal left main coronary artery, LAD with proximal 80-90% stenotic lesion and mid vessel 70% stenosis, dominant LCx with stenosis involving the posterior descending artery and second obtuse marginal vessels present, nondominant RCA with proximal 30-40% stenosis and mid 40% to 50% stenosis, and preserved ejection fraction. Patient was referred to tertiary center for bypass surgery. Stress test from February 2009 was negative for stress-induced myocardial ischemia and reported an ejection fraction 42%. Assessment AND Plan 1. Atherosclerosis of [place] coronary artery of [place] heart without angina pectoris I25.10 S/P CABG in November 2013 with BEGUM to LAD, SVG to posterior descending artery, and SVG to obtuse marginal branch; Kelsie - LEWIS Martínez Patient's echocardiogram from January 2014 showed preserved ejection fraction of 65%. Patient denies any chest pain, arm pain, jaw pain, neck pain, shortness of breath, or fatigue suggestive of angina at this time. We will continue to monitor this. We will not make any medication regimen changes and will continue risk factor modification. 2. Presence of aortocoronary bypass graft Z95.1 CABG X 3, 11/22/13, BEGUM-LAD, SVG-PDA, SVG-OM1 bilateral PVI AND ligation of atrial appendage; Kelsie - LEWIS Martínez Patient continue current plan as outlined above. 3. Paroxysmal atrial fibrillation I48.0 S/P DCCV in November 2013; pulmonary vein isolation in November 2013; ligation of left atrial appendage in November 2013; LEWIS Glover Patient's EKG today in office showed sinus bradycardia rate 49 bpm. Patient denies any symptoms at this heart rate. He will continue current medications which include beta-dario, antiarrhythmic, and Coumadin therapy. We will continue to monitor this. 4. Essential hypertension I10 Plan - LEWIS Martínez Patient's blood pressure is well-controlled today in the office. We will continue to monitor this. We will not make any medication regimen changes. 5. Pure hypercholesterolemia E78.00; E78.0 LEWIS Glover Patient's lipid panel from August 2017 showed cholesterol: 157, HDL: 38, LDL: 69, and triglycerides: 251. Patient will continue current statin medication. 6. Chronic diastolic heart failure I50.32 LEWIS Glover Patient's echocardiogram from January 2014 showed an ejection fraction of 65%. Patient denies any shortness of breath or lower extremity pedal edema. We will continue to monitor this through history, exam, and repeat echocardiogram. Patient will continue with beta-dario and as needed diuretic. 7. Nonrheumatic mitral valve insufficiency I34.0 LEWIS Glover Patient's echocardiogram from January 2014 showed mild mitral valve insufficiency. Patient denies any shortness of breath or activity intolerance. We will continue to monitor this through history, exam, and repeat echocardiogram as needed. Patient continue current medications. 8. Nonrheumatic aortic valve insufficiency I35.1 LEWIS Glover Patient's echocardiogram from January 2014 showed mild aortic valve insufficiency. Patient denies any shortness of breath or activity intolerance. We will continue to monitor this through history, exam, and repeat echocardiogram as needed. Patient continue current medications. 9. Non-rheumatic tricuspid valve insufficiency I36.1 LEWIS Glover Patient's echocardiogram from January 2014 showed mild tricuspid valve insufficiency. Patient denies any shortness of breath or activity intolerance. We will continue to monitor this through history, exam, and repeat echocardiogram as needed. Patient continue current medications. 10. S/P IVC filter Z95.828 LEWIS Glover Patient inquired regarding documentation verifying that he does not need surgery to remove IVC filter. Patient had CT scan in August 2016. Patient's office visit in May 2017 states that patient does not need to undergo surgery to remove IVC filter. He was instructed to contact our office with needed faxed information so that the May 2017 office visit can be faxed accordingly. 11. Diminished pulses in lower extremity R09.89 LEWIS Glover Patient does have decreased pulse in the left lower extremity. When compared to his right extremity there is some noted discoloration. Patient states it has been this way since his bypass surgery in 2014. He declined formal evaluation and vascular surgery consult. We will continue to monitor this. He was instructed that if he notices any increase in lower extremity pain and/or worsening symptoms to contact our office. Plan Detail Other Orders Orders: Additional Comments - LEWIS Martínez Discussed the above patient with Dr. Solis, he agrees with the plan of care. Thank you for allowing us to participate in the patients plan of care, if you have any questions please do not hesitate to call. This note was generated using a voice recognition system and there may be incorrect words, spelling or punctuation that were not noted when reviewing the office note prior to saving. 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 transplanted heart: [place] heart Presence of aortocoronary bypass graft Z95.1 Paroxysmal atrial fibrillation I48.0 Essential hypertension I10 Hypertension type: essential hypertension Pure hypercholesterolemia E78.00; E78.0 Hyperlipidemia type: pure hypercholesterolemia Chronic diastolic heart failure I50.32 Nonrheumatic mitral valve insufficiency I34.0 Nonrheumatic aortic valve insufficiency I35.1 Non-rheumatic tricuspid valve insufficiency I36.1 S/P IVC filter Z95.828 Diminished pulses in lower extremity R09.89 Coding Level of Care Code Off vis,est,level 3 Diagnoses Atherosclerosis of [place] coronary artery of [place] heart without angina pectoris I25.10 [place] vs. transplanted heart: [place] heart Presence of aortocoronary bypass graft Z95.1 Paroxysmal atrial fibrillation I48.0 Essential hypertension I10 Hypertension type: essential hypertension Pure hypercholesterolemia E78.00; E78.0 Hyperlipidemia type: pure hypercholesterolemia Chronic diastolic heart failure I50.32 Nonrheumatic mitral valve insufficiency I34.0 Nonrheumatic aortic valve insufficiency I35.1 Non-rheumatic tricuspid valve insufficiency I36.1 S/P IVC filter Z95.828 Diminished pulses in lower extremity R09.89 11/29/17 0710 <Electronically signed by Ricci SAUCEDO> Date Ricci Cabrera [facility] 11/29/17 2466<Electronically signed by William Solis MD> Cosigner Signature: Date (if applicable) William Solis MD CC: Shahriar Haynes MD PROTIME W/INR Collected: 11/28/2017 Status: F Source: [facility] [place] 11:51 AM [facility] REPOSITORY TYPE CODE TESTS RESULT OUT OF REFERENCE UNITS RANGE LAB L9200.1001 11.9-14.4 SEC High PROTIME ISTAT 29.3 Result Comment: Reference Range 11.9 - 14.4 LAB L9200.2000 Normal INR ISTAT 2.60 Result Comment: Critical Value > 3.5 Performed By: #### [id number] #### [facility] Point of Care [address] [place] [address] 12 LEAD EKG PERFORMED Observed: 11/28/2017 Status: F [place] [facility]:04 AM [facility] REPOSIT[facility] [address] [place] [address] 12 Lead EKG performed [place] [facility] 11/28/17 1003 MR#: [id number] Acct: [id number] Name: GLENNA MUNGUIA Rep #: [id number] : 1950 66 From: Ricci Cabrera [facility] [facility]-C Attending Dr: Ricci Cabrera NP Status: DEP AMB Ordering Dr: Ricci Cabrera [facility] Date: 11/28/17 [place] [facility] [place]: M C [place] [facility] Lead EKG performed [place] [facility] ECG Report Interpretation Marked sinus Bradycardia - T-abnormality -Possible inferior ischemia -consider inferior infarct (age undetermined). ABNORMAL Electronically signed on 11/29/2017 at 13:44 by William Solis 11/29/17 0660 Date Ricci Cabrera [facility] CC: Shahriar Haynes MD Date Dictated: 11/28/17 1003 Date Transcribed: 11/28/171002 Bale Opener: LONNY Signed PLASTIC SURGERY Observed: 11/20/2017 Status: F Source: [facility] VISIT REPORT 9:44 PM [facility] REPOSITORY [facility] [address] [facility] [address] [place] [address] OFFICE VISIT Date of Service: 10/26/17 MR#: [id number] Acct: [id number] Name: GLENNA MUNGUIA Rep #: [id number] : 1950 Provider: José Miguel Castillo MD Age/Sex: 66/M [place] [facility] Status: Signed Intake Vital Signs10/26/17 Height 5 ft 8 in 10/26/17 Weight: 271 lb 2 oz Intake Visit Reasons: postop surgery 10/21/17 Nitrator Operator Required: No Accompanied by: None Is patient in pain?: No Allergies No Known Allergies Allergy (Verified 11/11/17 09:00) Medications Escitalopram Oxalate [Lexapro] 20 mg PO DAILY 11/16/13 [History Confirmed 11/17/17] Aspirin [Aspirin, Baby] 81 mg PO DAILY@0800 #30 tab.chew 12/18/13 [Rx Confirmed 11/17/17] Atorvastatin Calcium [Lipitor] 80 mg PO QHS #30 tab 12/18/13 [Rx Confirmed 11/17/17] Multivitamins,Therapeutic [Multivitamin] 1 tab PO DAILYCM #30 tab 12/18/13 [Rx Confirmed 10/26/17] Warfarin [Coumadin] 1 mg PO UD 03/22/14 [History Confirmed 11/11/17] Amiodarone HCl [Cordarone] 200 mg PO DAILY 09/26/14 [History Confirmed 11/17/17] Furosemide [Lasix] 40 mg PO DAILY PRN PRN 09/26/14 [History Confirmed 11/17/17] Metoprolol Tartrate [Lopressor (beta dario)] 50 mg PO BID 09/26/14 [History Confirmed 11/17/17] metformin 500 mg tablet 500 mg PO QDAY tab 11/17/17 [History Confirmed 11/17/17] sennosides 8.6 mg-docusate sodium 50 mg tablet 2 tab PO BID PRN tab 11/17/17 [History Confirmed 11/17/17] PFSH Medical History Atherosclerotic heart disease of [place] coronary artery without angina pectoris (Chronic) Atrial fibrillation (Chronic) Coronary artery disease (Chronic) Heart failure (Acute) Heart problem (Acute) Hernia (Acute) Shortness of breath (Acute) Stroke (Acute) Surgical History History of hernia repair (Acute) S/P triple vessel bypass (Acute) Family History Father CAD (coronary artery disease) Mother Cancer Social History Smoking Status: Never smoker HPI postop surgery 10/21/17: Details: Postop visit from his recent surgery on 10/21/17 where he underwent revision amputation left index finger through distal middle phalanx. Comes in today with some incisional pain on the stump. Incision is dry and intact. Mild swelling seen. He can flex his MP joint without difficulty. There is some flexion at the PIP joint. Pathology is pending. He is finishing his antibiotics, Keflex, that he received preop at the [facility]. Followup one week. Will remove the sutures in 2-3 weeks. PAST MEDICAL HISTORY CAD. Atrial fibrillation. Inguinal hernia. CVA. SAUD. Hyperlipidemia. Hypertension. DVT. Open fracture tuft of distal phalanx left index finger. Complete comminuted transphalangeal amputation distal phalanx left index finger. Open wound left index finger tip with comminuted nail bed injury. PAST SURGICAL HISTORY Hernia repair. CABG. Revision amputation left index finger through distal middle phalanx - 10/21/17 FAMILY HISTORY Noncontributory. SOCIAL HISTORY Patient does not smoke. Patient does not drink alcohol. Assessment AND Plan Problems 1. Open displaced fracture of distal phalanx of left index finger S62.631B 2. 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, initial encounter S68.611A 3. Open wound of left index finger with damage to nail S61.301A Coding Level of Care Code Global Post Op Diagnoses Open displaced fracture of distal phalanx of left index finger S62.631B 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, initial encounter S68.611A Open wound of left index finger with damage to nail S61.301A 11/20/17 2144 <Electronically signed by José Miguel Castillo MD> Date José Miguel Castillo MD Cosigner Signature: Date (if applicable) CC: PROTHROMBIN TIME W/INR Collected: 11/11/2017 Status: F Source: [facility] 9:52 AM [facility] REPOSITORY Order Comment: Result obtained is for confirmation testing of Fingerstick PT/INR Specimen # [id number] . 11/11/17 1043 SHARON THIS CONFIRMATION SPECIMEN RESULT IS FROM VENOUS BLOOD. TYPE CODE TESTS RESULT OUT OF RANGE REFERENCE UNITS LAB L300.4150 11.7-14.9 SECONDS High PROTIME 31.1 LAB L300.4200 Normal INR 3.0 Performed By: #### L300.3900 #### [facility] [address] [place], [address] PROTIME W/INR Collected: 11/11/2017 Status: F Source: [place] [facility] [place] 9:46 AM [facility] REPOSITORY TYPE CODE TESTS RESULT OUT OF REFERENCE UNITS RANGE LAB L9200.1001 11.9-14.4 SEC High PROTIME ISTAT 42.0 Result Comment: Reference Range 11.9 - 14.4 LAB L9200.2000 High alert INR ISTAT 3.70 Result Comment: Critical Value > 3.5 Performed By: #### [id number] #### [facility] Point of Care [address] [place], [place] [address] OPERATIVE REPORT Observed: 11/09/2017 Status: F Source: [place] 4:52 PM [facility] REPOSITORY [facility] Medical Records Department [address] [place] [address] Operative Report 10/21/17 1745 MR#: [id number] Acct: [id number] Name: GLENNA MUNGUIA Rep #: [id number] : 1950 66 From: José Miguel Castillo MD PCP: Shahriar Haynes MD Status: [facility] [place] [facility] Operation Date of Procedure: 10/21/17 Pre-Operative Diagnosis: 1. Open fracture tuft of distal phalanx left index finger. 2. Partial transphalangeal amputation distal phalanx left index finger. 3. Open wound left index finger tip with comminuted nail bed injury. Post-Operative Diagnosis: 1. Open comminuted fracture distal phalanx left index finger. 2. Complete comminuted transphalangeal amputation distal phalanx left index finger. 3. Open wound left index finger tip with comminuted nail bed injury. Surgery/Procedure Performed:: Revision amputation left index finger through distal middle phalanx. Description of Surgical Findings:: 66 year old man presents with a 1 week history of an injury to his left index finger tip from an oscillating saw injury. He went to the urgent care center where an xray showed a tuft fracture of the distal phalanx as a transphalangeal amputation. The tip was cleansed and wrapped. He was placed on Keflex. Patient denies any fever. Patient was informed of the risks and complications of the procedure including alternatives to surgery. These were discussed with him personally. He voices understanding and wishes to proceed. Some of the risks and complications were included in a form from the [place] [employer]. Some of the risks and complications that were discussed included but were not inclusive of failure to diagnose including symptom relief, pain, infection, numbness, stiffness, loss of digit, RSD, need for further surgery, contracture and wound healing problems. Total tourniquet time - 36 minutes. power system operator: None Type of Anesthesia:: Local - digital metacarpal block with Marcaine by Anesthesia. Specimen's removed: Amputation stump left index finger tip to Pathology. Drains: None. Estimated Blood Loss (mL): 2 ml. Description of Procedure: Patient was taken to OR in supine position and his left hand was prepped and draped in the usual fashion. He had undergone a digital metacarpal block with Marcaine in the preop area by Anesthesia. SCD's were placed for DVT prophylaxis. Perioperative antibiotics were given intravenously. The finger tourniquet was administered. Upon loupe magnification i initially debrided the bony fracture. I removed the nail plate to get better exposure. The fracture was more than just a chip fracture on xray. It was a complex comminuted fracture with missing bone. After debridement, most of the bone was gone. At this point, it would make no sense to try and save the length of the finger since there is no underlying bony support for the tip. So I decided to proceed with the tip amputation. I initially tried to amputate at the level of the DIP joint. I marked dorsal and volar skin flaps with the volar flap being longer to advance anteriorly for closure. Incisions were made through the skin and the extensor and flexor tendons until the DIP joint was seen. After the tip amputation, the specimen was sent to Pathology for analysis. The articular surface of the middle phalanx was roughened and not smooth indicative of some arthritic changes. I rasped some of the irregularities to make it smoother for the skin flap. I dissected free the ulnar and radial digital nerves and placed them on stretch. I excised the ends and allowed the digital nerves to retract proximally to minimize neuroma formation. The wound was irrigated with saline. I tried to closed the volar skin flap anteriorly. It was a tight fit. I had to shorten the volar skin flap a little bit because of traumatic lacerations present that I felt may increase risk of suboptimal healing so further debridement was done. Therefore I had to shorten the bone a little bit more to allow a tension free closure. I went just proximal to the articular surface and cut the distal portion of the middle phalanx with bone cutters. This specimen went with the rest of the tissue to Pathology. The bony edges were rasped to smooth out the edges. The skin flaps were then easily closed without tension. I closed the skin flaps in multiple layers with 5-0 Monocryl interrupted sutures for the dermis. The skin was approximated with 5-0 Nylon simple interrupted sutures. The tourniquet was released after 36 minutes. Hemostasis was obtained with gentle pressure and elevation. Antibiotic ointment was applied to the suture line followed by xeroform gauze. This was then covered with 2x2 gauze and 2 inch guilherme wrap. Patient tolerated the procedure well and was sent to PACU in satisfactory condition. He was sent home on pain medication. He states he still has antibiotics at home from the urgent care center that he will finish. He will keep his left hand elevated and wear a plastic bag over his left hand when showering. He will followup in the office in a week for a wound check and for discussion of the pathology report. The sutures will be removed in 2-3 weeks. After the dressing removed in the office, will encourage range of motion exercises to minimize stiffness. If stiffness persists, then will set him up with OT for range of motion exercises, strengthening and edema management. Grafts/Implants Used: None. - Complications None. - Admit VTE Documentation VTE Present on Admission: No - Patient is on Coumadin. VTE Mechan Device Prophylaxis: SCD's VTE Pharm Prophylaxis ordered?: No Code Visit Surgery Charges CPT - 53038 ICD-10 - S62.631B, S68.611A, S61.301A 11/09/17 1652 <Electronically signed by José Miguel Castillo MD> Date José Miguel Castillo MD CC: José Miguel Castillo MD; Shahriar Haynes MD Signed PLASTIC SURGERY Observed: 10/27/2017 Status: F Source: [facility] VISIT REPORT 2:01 PM [facility] [place] REPOSITORY [facility] [address] [place] [address] OFFICE VISIT Date of Service: 10/20/17 MR#: [id number] Acct: [id number] Name: GLENNA MUNGUIA Rep #: [id number] : 1950 Provider: José Miguel Castillo MD Age/Sex: 66/M Location: 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: No Accompanied by: None Is patient in pain?: Yes (LEFT HAND INDEX FINGER AND THUMB SORE) Pain scale (1-10): 2 Allergies No Known Allergies Allergy (Verified 10/26/17 15:11) Medications Escitalopram Oxalate [Lexapro] 20 mg PO DAILY 11/16/13 [History Confirmed 10/26/17] Aspirin [Aspirin, Baby] 81 mg PO DAILY@0800 #30 tab.chew 12/18/13 [Rx Confirmed 10/26/17] Atorvastatin Calcium [Lipitor] 80 mg PO QHS #30 tab 12/18/13 [Rx Confirmed 10/26/17] Multivitamins,Therapeutic [Multivitamin] 1 tab PO DAILYCM #30 tab 12/18/13 [Rx Confirmed 10/26/17] Warfarin [Coumadin] 1 mg PO UD 03/22/14 [History Confirmed 10/26/17] Amiodarone HCl [Cordarone] 200 mg PO DAILY 09/26/14 [History Confirmed 10/26/17] Furosemide [Lasix] 40 mg PO DAILY PRN PRN 09/26/14 [History Confirmed 10/26/17] Metoprolol Tartrate [Lopressor (beta dario)] 50 mg PO BID 09/26/14 [History Confirmed 10/26/17] Oxycodone HCl/Acetaminophen [Percocet 5/325] 1 - 2 tab PO 4X/DAY PRN PRN 4 Days #30 tab 10/21/17 [Rx Confirmed 10/26/17] PFSH Medical History Heart failure (Acute) Heart problem (Acute) Hernia (Acute) Stroke (Acute) Surgical History History of hernia repair (Acute) S/P triple vessel bypass (Acute) Social History Smoking Status: Never smoker HPI evaluation open fracture transphalangeal amputation left index finger: Details: HISTORY OF PRESENT ILLNESS 66 year old man presents with a 1 week history of an injury to his left index finger tip from an oscillating saw injury. He went to the urgent care center where an xray showed a tuft fracture of the distal phalanx as a transphalangeal amputation. The tip was cleansed and wrapped. He was placed on Keflex. He presents today for further evaluation and treatment. Patient denies any fever. PAST MEDICAL HISTORY CAD. Atrial fibrillation. Inguinal hernia. CVA. SAUD. Hyperlipidemia. Hypertension. DVT. PAST SURGICAL HISTORY Hernia repair. CABG. MEDICATIONS Lipitor. Aspirin. Amiodarone. Lexapro. Lasix. Lopressor. MVI. Senekot. Coumadin. ALLERGIES None. FAMILY HISTORY Noncontributory. SOCIAL HISTORY Patient does not smoke. Patient does not drink alcohol. REVIEW OF SYSTEMS General - Denies fever, fatigue, and weight loss. Eyes - Denies cataracts, glaucoma. ENT - Denies nasal congestion, sore throat. Endocrine - Denies excessive thirst and urination. Skin - Has open fracture with partial amputation left index finger tip. Musculoskeletal - Denies joint pain, joint stiffness, weakness of muscles and joints, back pain, and arthritis. Neuro - Denies headaches. Cardiovascular - Denies chest pain. Denies fatigue. Had CVA. Had CABG. Psych - Denies anxiety and depression. Respiratory - Denies cough and shortness of breath. Gastrointestinal - Denies nausea, vomiting, diarrhea, and constipation. Hematologic - Has abnormal bruising on Coumadin. Has DVT. Genitourinary - Denies hematuria and urinary frequency. PHYSICAL EXAMINATION General - Alert and oriented. HEENT - PERRL. EOMI. Throat is clear. Neck - Supple and nontender. No cervical andenopathy. Lungs - Clear to auscultation. Heart - Regular rate and rhythm. Abdomen - Soft and nondistended. Extremities - FROM except for left index finger where there is a distal tip amputation through tuft of distal phalanx. There is a comminuted nail bed injury on ulnar aspect with nail plate missing. Measures 1 x 0.6 cm. There is an open fracture. There is a 2 cm laceration extending from nail bed injury onto volar aspect of finger. He can flex and extend his index finger. Fingers are warm with good capillary refill. Radial pulses are palpable. No axillary adenopathy. Neuro - CN II - XII grossly intact. IMPRESSION 1. Open fracture tuft of distal phalanx left index finger. 2. Partial transphalangeal amputation distal phalanx left index finger. 3. Open wound left index finger tip with comminuted nail bed injury. PLAN Xray reviewed. Recommend operative debridement of this open fracture with partial ostectomy for osteomyelitis. Patient wanted to know options for saving length of the finger. Told him the nail bed would need to be repaired with a possible nail bed graft from the big toe. If there is too much destruction of the nail bed secondary to the oscillating nature of the injury, then can excise the nail bed complex and proceed with a cross finger flap and skin grafting. This would necessitate a second procedure at 3 weeks which is a division and inset of the flap. There is an increased risk of finger stiffness from his age. 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 He doesn't know if he can take that much time off with two surgeries. If there is too much destruction secondary to the oscillating nature of the injury, then would proceed with a revision amputation. This would get him back to work the quickest. He understands that an amputation may be necessary and wishes to proceed. If the finger length can be preserved without too much trouble then proceed. Otherwise proceed with the amputation. Surgery can be done under digital metacarpal block and IV sedation on an outpatient basis. Patient was informed of the risks and complications of the procedure including alternatives to surgery. These were discussed with him personally. He voices understanding and wishes to proceed. Some of the risks and complications were included in a form from the [place] [employer]. Some of the risks and complications that were discussed included but were not inclusive of failure to diagnose including symptom relief, pain, infection, numbness, stiffness, loss of digit, RSD, need for further surgery, contracture and wound healing problems. Will proceed with the surgery tomorrow. Continue his Keflex. Assessment AND Plan Problems 1. Open displaced fracture of distal phalanx of left index finger S62.631B 2. 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, initial encounter S68.621A 3. Open wound of left index finger with damage to nail S61.301A Coding Level of Care Code Off vis,new,level 4 Diagnoses Open displaced fracture of distal phalanx of left index finger S62.631B 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, initial encounter S68.621A Open wound of left index finger with damage to nail S61.301A 10/27/17 1401 <Electronically signed by José Miguel Castillo MD> Date José Miguel Castillo MD [facility] Signature: Date (if applicable) CC: Shahriar Haynes MD DISCHARGE INSTRUCTION Observed: 10/23/2017 Status: F Source: [facility] 5:45 PM [facility] REPOSITORY [facility] Medical Records Department [address] [place] [address] Instructions for Home/Discharge Instructions 10/21/17 1228 MR#: [id number] Acct: [id number] Name: GLENNA MUNGUIA Rep #: [id number] : 1950 66 From: José Miguel Castillo MD PCP: Shahriar Haynes MD Status: [place] [facility] [place] by José Miguel Castillo MD on 10/23/17 at 1745 Patient has Keflex at home that he received from the urgent care center and he will continue them until finished. Date José Miguel Castillo MD cc: Shahriar Haynes MD * Signed You will use the following diet at home:: No restrictions Discharge Activity: May not drive while taking narcotic pain medications., May Shower - in one day. Place plastic bag over left hand when showering., - - no heavy lifting with left hand. May shower in (days): 1 - wear plastic bag over left hand when showering. May resume sexual activity in: No Restrictions Weight Bearing Status: Weight bearing as tolerated Lifting Restrictions: no heavy lifting with left hand. Keep extremity elevated above heart level: Left Arm Call your doctor if your incision/area has: Continuous Slow Oozing, Sudden Increased Bleeding, Increased Pain/ Swelling, Increased Redness, Foul Smelling Discharge, Swelling at the incision site Call your doctor if you observe: Fever of 101 or Higher, Coldness, Increased Pain, Shortness of breath, Chest pain, Calf discomfort, Uncontrolled pain Suture Line Care: - - after dressing removed in the office, apply antibiotic ointment to suture line daily. Change Dressing in (Days):: 7 - will change dressing in office. Cleanse incision/area with: - - wear plastic bag over left hand when showering. Allergies/Adverse Reactions: Allergies No Known Allergies Allergy (Verified 10/20/17 16:10) Medications to take at Discharge Escitalopram Oxalate [Lexapro] 20 mg PO DAILY 11/16/13 Aspirin [Aspirin, Baby] 81 mg PO DAILY@0800 #30 tab.chew 12/18/13 Atorvastatin Calcium [Lipitor] 80 mg PO QHS #30 tablet 12/18/13 Multivitamins,Therapeutic [Multivitamin] 1 tablet PO DAILYCM #30 tablet 12/18/13 Warfarin [Coumadin] 1 mg PO UD 03/22/14 Amiodarone HCl [Cordarone] 200 mg PO DAILY 09/26/14 Furosemide [Lasix] 40 mg PO DAILY PRN PRN 09/26/14 Metoprolol Tartrate [Lopressor (beta dario)] 50 mg PO BID 09/26/14 Oxycodone HCl/Acetaminophen [Percocet 5/325] 1 - 2 tab PO 4X/DAY PRN PRN 4 Days #30 tab 10/21/17 The following prescriptions were given: Oxycodone HCl/Acetaminophen [Percocet 5/325] 1 - 2 tab PO 4X/DAY PRN PRN 4 Days #30 tab PRN Reason: Pain Primary Care Physician: Shahriar Haynes MD [Primary Care Provider] - Please Follow Up With: José Miguel Castillo MD When: one week. call [phone] for appt. Proposed Discharge Date: 10/21/17 10/21/17 1231 <Electronically signed by José Miguel Csatillo MD> Date José Miguel Castillo MD CC: Shahriar Haynes MD HISTORY AND PHYSICAL Observed: 10/23/2017 Status: F Source: [facility] EXAM 5:44 PM [facility] REPOSITORY [facility] Medical Records Department [address] [place] [id number] History and Physical 10/21/17 1040 MR#: [id number] Acct: [id number] Name: GLENNA MUNGUIA Rep #: [id number] : 1950 66 From: José Miguel Castillo MD PCP: Shahriar Haynes MD Status: [facility] [place] [facility] [place] and Physical Date of Admission: 10/21/17 HISTORY OF PRESENT ILLNESS 66 year old man presents with a 1 week history of an injury to his left index finger tip from an oscillating saw injury. He went to the urgent care center where an xray showed a tuft fracture of the distal phalanx as a transphalangeal amputation. The tip was cleansed and wrapped. He was placed on Keflex. He presents today for further evaluation and treatment. Patient denies any fever. PAST MEDICAL HISTORY CAD. Atrial fibrillation. Inguinal hernia. CVA. SAUD. Hyperlipidemia. Hypertension. DVT. PAST SURGICAL HISTORY Hernia repair. CABG. MEDICATIONS Lipitor. Aspirin. Amiodarone. Lexapro. Lasix. Lopressor. MVI. Senekot. Coumadin. ALLERGIES None. FAMILY HISTORY Noncontributory. SOCIAL HISTORY Patient does not smoke. Patient does not drink alcohol. REVIEW OF SYSTEMS General - Denies fever, fatigue, and weight loss. Eyes - Denies cataracts, glaucoma. ENT - Denies nasal congestion, sore throat. Endocrine - Denies excessive thirst and urination. Skin - Has open fracture with partial amputation left index finger tip. Musculoskeletal - Denies joint pain, joint stiffness, weakness of muscles and joints, back pain, and arthritis. Neuro - Denies headaches. Cardiovascular - Denies chest pain. Denies fatigue. Had CVA. Had CABG. Psych - Denies anxiety and depression. Respiratory - Denies cough and shortness of breath. Gastrointestinal - Denies nausea, vomiting, diarrhea, and constipation. Hematologic - Has abnormal bruising on Coumadin. Has DVT. Genitourinary - Denies hematuria and urinary frequency. PHYSICAL EXAMINATION General - Alert and oriented. HEENT - PERRL. EOMI. Throat is clear. Neck - Supple and nontender. No cervical andenopathy. Lungs - Clear to auscultation. Heart - Regular rate and rhythm. Abdomen - Soft and nondistended. Extremities - FROM except for left index finger where there is a distal tip amputation through tuft of distal phalanx. There is a comminuted nail bed injury on ulnar aspect with nail plate missing. Measures 1 x 0.6 cm. There is an open fracture. There is a 2 cm laceration extending from nail bed injury onto volar aspect of finger. He can flex and extend his index finger. Fingers are warm with good capillary refill. Radial pulses are palpable. No axillary adenopathy. Neuro - CN II - XII grossly intact. IMPRESSION 1. Open fracture tuft of distal phalanx left index finger. 2. Partial transphalangeal amputation distal phalanx left index finger. 3. Open wound left index finger tip with comminuted nail bed injury. PLAN Xray reviewed. Recommend operative debridement of this open fracture with partial ostectomy for osteomyelitis. Patient wanted to know options for saving length of the finger. Told him the nail bed would need to be repaired with a possible nail bed graft from the big toe. If there is too much destruction of the nail bed secondary to the oscillating nature of the injury, then can excise the nail bed complex and proceed with a cross finger flap and skin grafting. This would necessitate a second procedure at 3 weeks which is a division and inset of the flap. There is an increased risk of finger stiffness from his age. 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 He doesn't know if he can take that much time off with two surgeries. If there is too much destruction secondary to the oscillating nature of the injury, then would proceed with a revision amputation. This would get him back to work the quickest. He understands that an amputation may be necessary and wishes to proceed. If the finger length can be preserved without too much trouble then proceed. Otherwise proceed with the amputation. Surgery can be done under digital metacarpal block and IV sedation on an outpatient basis. Patient was informed of the risks and complications of the procedure including alternatives to surgery. These were discussed with him personally. He voices understanding and wishes to proceed. Some of the risks and complications were included in a form from the [place] [employer]. Some of the risks and complications that were discussed included but were not inclusive of failure to diagnose including symptom relief, pain, infection, numbness, stiffness, loss of digit, RSD, need for further surgery, contracture and wound healing problems. Will proceed with the surgery tomorrow. Continue his Keflex. 10/23/17 1321 <Electronically signed by José Miguel Castillo MD> Date José Miguel Castillo MD Cosigner Signature: Date (if applicable) CC: José Miguel Castillo MD; Shahriar Haynes MD Signed AMPUTATION (CHOOSE Observed: 10/21/2017 Status: F Source: [place] [facility] SITE) 7:30 AM [facility] REPOSITORY Patient: GLENNA MUNGUIA : 1950 (66/M) Acct Num: [id number] Phys: Anna JUNG,José Miguel Unit Num: [id number] [place] [facility] Specimen: [id number] Received: 10/21/17 - 1240 Spec Type: Amputation TISSUES TISSUES: Finger, NOS GROSS DESCRIPTION Received in fixative is one container labeled with the patient's name and designated left index fingertip. The specimen consists of a portion of digit measuring 3 x 2.5 x 1 cm. A focal area of ulceration is noted at the tip and extending proximally and measures 2 x 0.6 cm. Also present in the container is a detached piece of skin and nail measuring in aggregate 2 x 1.5 x 0.6 cm. Also present in the container is a detached piece of bone measuring 1 x 0.5 x 0.5 cm. [employer] Player sections are submitted in three cassettes as follows: 1 ulcerated area, 2 bone from the fingertip, 3 detached piece of bone. Cassettes 2 and 3 are submitted after decalcification. / MARJORIE:bonita 10/21/17 TC:2 CPT: 90701, 79346, 74883 x2 HEADER OPERATION: Debridement open fracture with amputation, index finger PRE-OP DIAGNOSIS: Open fracture tuft of distal phalanx left index finger; partial transphalangeal amputation distal phalanx left index finger; Open wound left index fingertip with comminuted nailbed injury TISSUE SUBMITTED: Left index fingertip MICROSCOPIC DESCRIPTION Slides are reviewed. MICROSCOPIC DIAGNOSIS Left index fingertip, amputation: Focal ulceration with associated acute and chronic inflammation, hemorrhage and bacterial colonizaton. Pieces of bone negative for acute osteomyelitis. Special stains for acid fast bacilli and fungi are negative for organisms; matched controls are appropriate. MARJORIE:bonita 10/26/17 Signed Galileo Cerda 10/27/17 <signature on file> Performed By: #### PAMP #### [facility] [address] [place], [place], [address] BASIC METABOLIC Collected: 09/26/2017 Status: F Source: [place] PROFILE (BMP) 11:59 AM [facility] REPOSITORY TYPE CODE TESTS RESULT OUT OF RANGE REFERENCE UNITS LAB L501.0100 74-106 mg/dL High GLU 174 Result Comment: Fasting Glucose result greater than or equal to 126 mg/dL suggests DIABETES MELLITUS per A.D.A. criteria. Please note revised GLUCOSE reference range effective 2017. LAB L501.1000 7-18 mg/dL High BUN 19 LAB L501.1100 0.70-1.30 mg/dL Normal CREAT,SERUM 1.25 Result Comment: The validity of the calculated GFR AND GFRAA in patients over 70 years has not been determined. Clinical correlation is essential. LAB L501.1110 >60 mL/min Normal EST GFR 62 Result Comment: Non- GFR Calc LAB L501.1115 >60 mL/min Normal EST GFR - AA 74 Result Comment: GFR Calc LAB L501.1300 10-20 RATIO Normal BUN/CRE 15.2 LAB L501.2200 8.5-10.1 mg/dL CA Normal 9.0 LAB L501.5300 136-145 mmol/L NA Normal 139 LAB L501.5600 3.5-5.1 mmol/L K Normal 4.4 LAB L501.5900 98-107 mmol/L CL Normal 103 LAB L501.6100 21.0-32.0 mmol/L Normal CO2 28.0 LAB L501.6200 5-15 Normal GAP 8 Performed By: #### L500.2500 #### [facility] [address], [address] MICROALB:CREAT Collected: 09/26/2017 Status: F Source: [place] RATIO,RANDOM UR 11:59 AM [facility] REPOSITORY TYPE CODE TESTS RESULT OUT OF RANGE REFERENCE UNITS LAB L501.1200 NO RANGE EST. mg/dL Normal UR CREAT 39.20 LAB L502.0500 NO RANGE EST. mg/L Normal 44.0 MICROALBUMIN ,UR LAB L502.0600 <30 mg/g CRE mg/g CRE High 112.2 MALB:CREAT Performed By: #### L502.0250 #### [facility] [address] [place], [address] LIVER PROFILE Collected: 09/20/2017 Status: F Source: [place] 10:25 AM [facility] REPOSITORY Order Comment: Order Date: 03/04/17 Order Info: [id number] - *Hepatic Function Panel Order Info: [id number] - *Lipid Profile CC PCP Comments: 12 hours fasting, may have water. TYPE CODE TESTS RESULT OUT OF RANGE REFERENCE UNITS LAB L501.1500 6.4-8.2 g/dL Normal T PROT 7.8 LAB L501.1800 3.2-5.0 g/dL Normal ALB 3.9 LAB L501.1950 2.2-4.2 g/dL Normal GLOB 3.9 LAB L501.4100 15-37 U/L Normal AST 21 LAB L501.4305 45-117 U/L Normal ALK P 98 LAB L501.4405 16-61 U/L Normal ALT 34 Result Comment: Please note revised ALT reference range effective 2017. LAB L501.4600 0.20-1.00 mg/dL High T BILI 1.20 LAB L501.4700 0.00-0.30 mg/dL Normal D BILI 0.22 Performed By: #### L500.3400 #### [facility] [address] [place], [address] LIPID PROFILE Collected: 09/20/2017 Status: F Source: [place] 10:25 AM [facility] REPOSITORY Order Comment: Order Date: 03/04/17 Order Info: [id number] - *Hepatic Function Panel Order Info: [id number] - *Lipid Profile CC PCP Comments: 12 hours fasting, may have water. TYPE CODE TESTS RESULT OUT OF RANGE REFERENCE UNITS LAB L501.4900 200 mg/dL Normal CHOL 157 Result Comment: <200 mg/dL Desirable 200-240 mg/dL Borderline >240 mg/dL High Risk LAB L501.5000 mg/dL High TRIG 251 Result Comment: The drugs N-Acetylcysteine and Metamizole may falsely depress this assay. Serum Triglycerides Reference Interval Normal <150 mg/dL Borderline high 150 - 199 mg/dL High 200 - 499 mg/dL Very High > or = 500 mg/dL LAB L501.6400 mg/dL Low HDL 38 Result Comment: The drugs N-Acetylcysteine and Metamizole may falsely depress this assay. Reference Range HDL <40 mg/dL Low HDL Cholesterol HDL >or= 60 mg/dL High HDL Cholesterol LAB L501.6500 0-130 mg/dL Normal LDL 69 LAB L501.6600 5-40 mg/dL High VLDL 50 Performed By: #### L500.4100 #### [facility] [address] [place], [address] PROTHROMBIN TIME W/INR Collected: 09/20/2017 Status: F Source: [place] 10:25 AM [facility] REPOSITORY Order Comment: Order Date: 03/22/17 Order Info: 6301-6 - *PT/INR - Standing Order Comments: Standing Order-Reason: TYPE CODE TESTS RESULT OUT OF RANGE REFERENCE UNITS LAB L300.4150 11.7-14.9 SECONDS High PROTIME 27.2 LAB L300.4200 Normal INR 2.6 Performed By: #### L300.3900 #### [facility] [address] [place], [address] PROTIME W/INR Collected: 08/23/2017 Status: F Source: [place] FINGERSTICK 12:53 PM [facility] REPOSITORY TYPE CODE TESTS RESULT OUT OF REFERENCE UNITS RANGE LAB L9200.1001 11.9-14.4 SEC High PROTIME ISTAT 27.5 Result Comment: Reference Range 11.9 - 14.4 LAB L9200.2000 Normal INR ISTAT 2.40 Result Comment: Critical Value > 3.5 Performed By: #### L9200.0000 #### [facility] Point of Care [address] [place] [address] ALLERGIES ALLERGIES DATE TYPE / CODE NAME / CODE REACTION SEVERITY SOURCE 07/04/2018 Drug No Known Unknown [facility] Allergy/4160 Allergies/F00 [facility] 00333(SNOMED 5240383(RXNOR Repository CT) M) ENCOUNTERS ENCOUNTERS ADMIT/DISCHARGE ACCOUNT ADMITTING ENCOUNTER LOCATION SOURCE NUMBER CLASS 07/04/2018 [id number] Ambulatory [address] ing:MTLAB Repository 07/04/2018/ [id number] Ambulatory BMSBuilding:B [place] 8 4 [facility] Repository 05/25/2018 [id number] Ambulatory [place] 1 [facility] ing:MTLAB Repository 05/08/2018/ [id number] Ambulatory [place] 8 5 [facility] ing:MTLAB Repository 03/30/2018 [id number] Ambulatory [place] 7 [facility] ing:MTLAB Repository 03/14/2018/ [id number] Ambulatory [place] 8 0 [facility] ing:MTLAB Repository 11/28/2017/ [id number] Ambulatory [place] 8 0 [facility] ing:MTLAB Repository 11/28/2017/ [id number] Ambulatory BMSBuilding:B [place] 8 0 [facility] Repository 11/17/2017 [id number] Ambulatory BMS [place] 2 [facility] Repository 11/15/2017 [id number] Ambulatory BMSBuilding:B [place] 5 [facility] Repository 11/14/2017 [id number] Ambulatory BMSBuilding:B [place] 5 [facility] Repository 11/11/2017/ [id number] Ambulatory [place] 8 8 [facility] ing:MTLAB Repository 11/11/2017/ [id number] Ambulatory BMSBuilding:B [place] 8 2 [facility] Repository 10/26/2017/ [id number] Ambulatory BMSBuilding:B [place] 8 6 [facility] Repository 10/21/2017/ [id number] Ambulatory [place] 8 1 [facility] ing:[facility] [place]ository 10/21/2017 [id number] Ambulatory BMSBuilding:B [place] 7 MS.[facility] Repository 10/20/2017/ [id number] Ambulatory BMSBuilding:B [place] 8 9 [facility] Repository 09/26/2017 [id number] Ambulatory [place] 7 [facility] ing:MTLAB Repository 09/20/2017/ [id number] Ambulatory [place] 8 8 [facility] ing:MTLAB Repository 08/23/2017/ [id number] Ambulatory [place] 8 5 [facility] ing:MTLAB Repository PAYERS PAYERS ENCOUNTER GUARANTOR PAYER SUBSCRIBER SOURCE 07/04/2018 GLENNA L Primary TALISHA L [place] [id number] Insurance:[facility] WRIGHTDOB: [facility] CARE [id number] [id number] Number[place] Repository [address]Vas: 330 [id number] [phone] () Date:3373-57-92[address]BSUGCQB, [place] [address]SU: 07/04/2018 Secondary GLENNA L [place] Insurance:MEDICARE WRIGHTDOB: [facility] [id number] Hospital Number: Repository [id number] Date:2018-07-04 07/04/2018 Tertiary NOT GIVENUNK [place] Insurance:SELF PAY [facility] Number: Effective Repository Date:2018-07-04 07/04/2018 GLENNA L Primary GLENNA L [place] [id number] Insurance:MEDICARE WRIGHTDOB: [facility] PART A [facility] [id number] Number: Repository [address]Gza: 330 [id number] [phone] () Date:2017-11-28 07/04/2018 Secondary TALISHA L [place] [facility] CARE [id number] Hospital Number: Repository [id number] Date:0740-88-91AY [facility] [address]46163TBRGZPD, [place] [address]BS: 07/04/2018 Tertiary NOT GIVENUNK [place] Insurance:SELF PAY [facility] Number: Effective Repository Date:2018-07-04 05/25/2018 GLENNA L Primary TALISHA L [place] [id number] Insurance:UNITED [facility] WRIGHTDOB: Community [place] CARE [id number] [id number] Number: Repository [address]Xmy: 330 [id number] [phone] (HP) Date:0991-55-70FG [address]FOIQQOZ, [place] [address]TC: 05/25/2018 Secondary GLENNA L [place] Insurance:MEDICARE WRIGHTDOB: Community PART A [facility] [id number] Hospital Number: Repository [id number] Date:2017-09-20 05/25/2018 Tertiary NOT GIVENUNK [place] Insurance:SELF PAY [facility] Number: Effective Repository Date:2018-05-25 05/08/2018 GLENNA L Primary TALISHA L [place] [id number] Insurance:[facility] WRIGHTDOB: [facility]ARE [id number] [id number] [place] Number: Repository [address]Syd: 330 [id number] [phone] (HP) Date:5172-26-94YC [address]EYDPRYF, [place] [address]YG: 05/08/2018 Secondary GLENNA L [place] Insurance:MEDICARE WRIGHTDOB: Community PART A [facility] [id number] Hospital Number: Repository [id number] Date:2017-09-20 05/08/2018 Tertiary NOT GIVENUNK [place] Insurance:SELF PAY [facility] Number: Effective Repository Date:2018-03-29 03/30/2018 GLENNA L Primary TALISHA L [place] [id number] Insurance:[facility] WRIGHTDOB: [facility] [place]OHLO[place]UT CARE [id number] [id number] [place] Number: Repository [address]Xot: 330 [id number] [phone] (HP) Date:9545-61-77NS [address]ZEPQLUC, [place] [address]EC: 03/30/2018 Secondary GLENNA L [place] Insurance:MEDICARE WRIGHTDOB: Community PART A [facility] [id number] Hospital Number: Repository [id number] Date:2018-03-30 03/30/2018 Tertiary NOT GIVENUNK [place] Insurance:SELF PAY [facility] Number: Effective Repository Date:2018-03-30 03/14/2018 GLENNA L Primary TALISHA L [place] [id number] [facility] WR[facility]: [facility] [place]LG[place] CARE [id number] [place] Number: Repository [address]Scw: 330 [id number] [phone] (HP) Date:5978-32-06RN [address]QNKEEWA, [place] [address]AX: 03/14/2018 Secondary GLENNA L [place] Insurance:MEDICARE WRIGHTDOB: Community PART A [facility] [id number] Hospital Number: Repository [id number] Date:2017-09-20 03/14/2018 Tertiary NOT GIVENUNK [place] Insurance:SELF PAY [facility] Number: Effective Repository Date:2017-12-23 11/28/2017 GLENNA L Primary TALISHA L [place] [id number] Insurance:[facility] WRIGHTDOB: [facility] CARE [id number] [id number] Number: Repository [address]Icr: 330 [id number] [phone] () Date:9329-41-18BI [address]PYVQQLR, [place] [address]UI: 11/28/2017 Secondary GLENNA L [place] Insurance:MEDICARE WRIGHTDOB: Community PART A [facility] [id number] Hospital Number: Repository [id number] Date:2017-09-20 11/28/2017 Tertiary NOT GIVENUNK [place] Insurance:SELF PAY [facility] Number: Effective Repository Date:2017-11-22 11/28/2017 GLENNA L Primary TALISHA L [place] [id number] Insurance:[facility] WRIGHTDOB: [facility] WOHLGAMUT CARE [id number] Medical Center Number: [place]ository [place] [address]Fam: [id number] Date:0648-41-85PS [address] ) [address]UAQSVWU, [place] [address]KH: 11/28/2017 Secondary GLENNA L [place] Insurance:MEDICARE WRIGHTDOB: Community PART [facility] [id number] Hospital Number: Repository [id number] Date:2017-07-13 11/28/2017 Tertiary NOT GIVENUNK [place] Insurance:SELF PAY [facility] Hospital Number: Effective Repository Date:2017-11-28 11/17/2017 Glenna L Primary TALISHA L [place] [id number] Insurance:UNITED [facility] WRIGHTDOB: [facility] [place] CARE [id number] [id number] Clinic Hospital, [place] Number: Repository [address]Slf: 330 [id number] [phone] () Date:9780-30-17QB [address]QRVOPLN, [place] [address]SC: 11/17/2017 Secondary Glenna L [place] Insurance:MEDICARE WrightDOB: Community PART [facility] [id number] Hospital Number: Repository [id number] Date:2017-11-17 11/17/2017 Tertiary NOT GIVENUNK [place] Insurance:SELF PAY [facility] Number: Effective Repository Date:2017-11-17 11/15/2017 Glenna L Primary TALISHA L [place] [id number] Insurance:UNITED TH WRIGHTDOB: [facility] [place] CARE [id number] 5526-34-46KBAMayo Clinic Hospital[place] Number: Repository [address]Yko: [phone] [id number] [phone] () Date:6328-85-86CT [address], [place] [address]LC: 11/15/2017 Secondary Glenna L [place] Insurance:MEDICARE WrightDOB: Community PART A [facility] [id number] Hospital Number: Repository [id number] Date:2017-11-15 11/15/2017 Tertiary NOT GIVENUNK [place] Insurance:SELF PAY [facility] Hospital Number: Effective Repository Date:2017-11-15 11/14/2017 Gelnna L Primary TALISHA L [place] [id number] Insurance:[facility] WRIGHTDOB: Community [place] CARE [id number] Clinic [facility] Number: Repository [address]Jeu: 330 [id number] [phone] (HP) Date:2578-07-31LR [facility] 632610WJYKVKB, [place] [address]EI: 11/14/2017 Secondary Glenna L [place] Insurance:MEDICARE WrightDOB: Community PART A [facility] [id number] Hospital Number: Repository [id number] Date:2017-11-14 11/14/2017 Tertiary NOT GIVENUNK [place] Insurance:SELF PAY [facility] Hospital Number: Effective Repository Date:2017-11-14 11/11/2017 Glenna L Primary TALISHA L [place] [id number] Insurance:UNITED TH WRIGHTDOB: Community [place] CARE [id number] [id number] Clinic Hospital[place] Number: Repository [address]Pjr: 330 [id number] [phone] (HP) Date:5725-63-51NN [facility] 003189PROWCNY, [place] [address]MI: 11/11/2017 Secondary Glenna L [place] Insurance:MEDICARE WrightDOB: Community PART A [facility] [id number] Hospital Number: Repository [id number] Date:2017-09-20 11/11/2017 Tertiary NOT GIVENUNK [place] Insurance:SELF PAY [facility] Hospital Number: Effective Repository Date:2017-09-22 11/11/2017 Glenna L Primary TALISHA L [place] [id number] Insurance:UNITED TH WRIGHTDOB: Community [place] CARE [id number] [id number] Clinic Hospital[place] Number: Repository [address]Vlj: 330 [id number] [phone] (HP) Date:0926-63-60OF [facility] 824790FZKUACO, [place] [address]MW: 11/11/2017 Secondary Glenna L [place] Insurance:MEDICARE WrightDOB: Community PART A [facility] [id number] Hospital Number: Repository [id number] Date:2017-10-26 11/11/2017 Tertiary NOT GIVENUNK [place] Insurance:SELF PAY [facility] Hospital Number: Effective Repository Date:2017-11-11 10/26/2017 Glenna L Primary TALISHA L [place] [id number] Insurance:UNITED TH WRIGHTDOB: Community [place] CARE [id number] 2705-57-41FWMHolland [place] Number: Repository [address]Nuo: 330 [id number] [phone] () Date:8577-79-13WP [facility] 184673AGTPRCL, [place] [address]CK: 10/26/2017 Secondary Glenna L [place] Insurance:MEDICARE WrightDOB: Community PART [facility] [id number] Hospital Number: Repository [id number] Date:2017-10-21 10/26/2017 Tertiary NOT GIVENUNK [place] Insurance:SELF PAY [facility] Number: Effective Repository Date:2017-10-26 10/21/2017 Glenna L Primary TALISHA L [place] [id number] Insurance:UNITED TH WRIGHTDOB: Community [place] CARE [id number] [id number] Number: Repository [address]Eky: 330 [id number] [phone] (HP) Date:7692-86-64RN [facility] 488495BVQRECU, [place] [address]CQ: 10/21/2017 Secondary Glenna L [place] Insurance:MEDICARE WrightDOB: Community PART A [facility] [id number] Hospital Number: Repository [id number] Date:2017-10-21 10/21/2017 Tertiary NOT GIVENUNK [place] Insurance:SELF PAY [facility] Hospital Number: Effective Repository Date:2017-10-21 10/21/2017 Glenna L Primary TALISHA L [place] [id number] Insurance:UNITED TH WRIGHTDOB: Community [place] CARE [id number] [id number] Clinic [facility] Number: Repository [address]Vze: 330 [id number] [phone] (HP) Date:3174-26-34NG [facility] 929440FDQSPHS, [place] [address]OP: 10/21/2017 Secondary Glenna L [place] Insurance:MEDICARE WrightDOB: Community PART A [facility] [id number] Hospital Number: Repository [id number] Date:2017-10-21 10/21/2017 Tertiary NOT GIVENUNK [place] Insurance:SELF PAY [facility] Hospital Number: Effective Repository Date:2017-10-21 10/20/2017 Glenna L Primary TALISHA L [place] [id number] [facility] WRIGHTDOB: [facility] CARE [id number] [id number] Clinic Hospital[place] Number: Repository [address]Psj: 330 [id number] [phone] (HP) Date:6751-23-26UG [address]XMNLSZA, [place] [address]HT: 10/20/2017 Secondary Glenna L [place] Insurance:MEDICARE WrightDOB: Community PART A [facility] [id number] Hospital Number: Repository [id number] Date:2017-10-19 10/20/2017 Tertiary NOT GIVENUNK [place] Insurance:SELF PAY [facility] Hospital Number: Effective Repository Date:2017-10-20 09/26/2017 Glenna L Primary TALISHA L [place] [id number] Insurance[facility] WRIGHTDOB: [facility]ARE [id number] Clinic [place] Number[place]ository [address]Vwn: 330 [id number] [phone]) Date:5948-43-05RB [address]EVZBURJ, [place] [address]QD: 09/26/2017 Secondary Glenna L [place] Insurance:MEDICARE WrightDOB: Community [facility] [id number] Hospital Number: Repository [id number] Date:2017-09-26 09/26/2017 Tertiary NOT GIVENUNK [place] Insurance:SELF PAY [facility] Hospital Number: Effective Repository Date:2017-09-26 09/20/2017 Glenna L Primary TALISHA L [place] [id number] Insurance:UNITED TH WRIGHTDOB: Community [place] CARE [id number] [id number] Clinic Hospital, [place] Number: Repository [address]Yqr: 330 [id number] [phone] (HP) Date:4633-24-61RW [facility] 713138TXUZIJL, [place] [address]XN: 09/20/2017 Secondary Glenna L [place] Insurance:MEDICARE WrightDOB: Community PART A [facility] [id number] Hospital Number: Repository [id number] Date:2017-09-20 09/20/2017 Tertiary NOT GIVENUNK [place] Insurance:SELF PAY [facility] Hospital Number: Effective Repository Date:2017-09-20 08/23/2017 Glenna L Primary TALISHA Matthew [place] [id number] Insurance:[facility] WRIGHTDOB: [facility] [place] CARE [id number] Clinic Hospital[place] Number: Repository [address]Hsq: 330 [id number] [phone] (HP) Date:2354-27-46HH [facility] 224169EHOQHBL, [place] [address]KB: 08/23/2017 Secondary Glenna L [place] Insurance:MEDICARE WrightDOB: Community PART A [facility] [id number] Hospital Number: Repository [id number] Date:2011-07-25 08/23/2017 Tertiary NOT GIVENUNK [place] Insurance:SELF PAY [facility] Hospital Number: Effective Repository Date:2017-06-26
== END ==
PROVIDERS: Family Provider Family Medicine; PCP Family Medicine; Referring Provider Internal Medicine Cardiovascular Disease; Visit Provider Internal Medicine Cardiovascular Disease
DX: I48.0 Paroxysmal atrial fibrillation (principal); Z79.01 Long term (current) use of anticoagulants; E78.00 Pure hypercholesterolemia, unspecified; I11.0 Hypertensive heart disease with heart failure; I50.32 Chronic diastolic (congestive) heart failure; Z95.1 Presence of aortocoronary bypass graft
CPT/HCPCS: 36415; 36416; 83036; 85610

== ENCOUNTER 2018-09-21 12:35 | Outpatient (RCR) | payer MEDICARE, SELFPAY ==
[2018-07-04 08:27] VITALS: BMI 37.2
[2018-09-21 12:55] LABS: Prothrombin Time Fingerstick 35.1 SEC (11.9-14.4)
== END 2018-09-21 15:01 | disposition home or self-care (01) ==
LOC: MTLAB 12:35
PROVIDERS: Family Provider Family Medicine; PCP Family Medicine; Referring Provider Internal Medicine Cardiovascular Disease; Visit Provider Internal Medicine Cardiovascular Disease
DX: I48.0 Paroxysmal atrial fibrillation (principal); Z79.01 Long term (current) use of anticoagulants; Z51.81 Encounter for therapeutic drug level monitoring
CPT/HCPCS: 36416; 85610

== ENCOUNTER 2018-09-28 09:14 | Outpatient (RCR) | payer MEDICARE, SELFPAY ==
[2018-07-04 08:27] VITALS: BMI 37.2
[2018-09-28 09:35] LABS: Prothrombin Time Fingerstick 30.6 SEC (11.9-14.4)
== END 2018-09-28 10:00 | disposition home or self-care (01) ==
LOC: MTLAB 09:14
PROVIDERS: Family Provider Family Medicine; PCP Family Medicine; Referring Provider Internal Medicine Cardiovascular Disease; Visit Provider Internal Medicine Cardiovascular Disease
DX: I48.0 Paroxysmal atrial fibrillation (principal); Z79.01 Long term (current) use of anticoagulants; Z51.81 Encounter for therapeutic drug level monitoring
CPT/HCPCS: 36416; 85610

== ENCOUNTER → 2018-09-28 10:15 | Outpatient (CLI) | payer MEDICARE, SELFPAY ==
[2018-07-04 08:27] VITALS: BMI 37.2
--- NOTE | 2018-09-28 10:17 | RAD_ITS ---
STUDY: X-RAY - UNILATERAL RIBS ( LEFT ) WITH CHEST REASON FOR EXAM: Male, 67 years old. L4 days ago, chest and rib pain on the left TECHNIQUE - RIBS: 3 view(s) of the ribs. TECHNIQUE - CHEST: Single frontal view of the chest. COMPARISON: Chest 01/20/2016 FINDINGS - RIBS: Fractures of left ribs 5 through 9. FINDINGS - CHEST: Median sternotomy wires and atrial clip. Right basilar atelectasis. There is no demonstrated pleural abnormality. Stable cardiomediastinal silhouette. Calcified right hilar lymph nodes. Normal visualized pulmonary arteries. Normal visualized aortic arch and descending thoracic aorta. Normal visualized thoracic spine. Normal visualized ribs, clavicles, and shoulders. Calcified splenic granulomata. Hernia mesh. IVC filter. RAD/Ribs Uni Min 3V w/PA Chest IMPRESSION: RIBS: Fractures of left ribs 5 through 9. CHEST: Right basilar atelectasis. Electronically Signed: Jeffy Gallegos MD at 23:12 EST Tel , Service support ,
[2018-09-28 12:37] LABS: AST(SGOT) 21 U/L (15-37); Alanine Aminotransfer ALT/SGPT 28 U/L (16-61); Albumin, Serum 4.1 g/dL (3.2-5.0); Alkaline Phosphatase 89 U/L (45-117); Anion Gap 7 (5-15); BUN 20 mg/dL (7-18); BUN/Creat Ratio 19.2 RATIO (10-20); Bilirubin, Direct 0.34 mg/dL (0.00-0.30); Calcium,Total 9.1 mg/dL (8.5-10.1); Chloride 105 mmol/L (98-107); Cholesterol 153 mg/dL (200); Creatinine, Serum 1.04 mg/dL (0.70-1.30); EST Glomerular Filtration Rate 76 mL/min (>60); Est Glom Filt Rate - Afr Amer 92 mL/min (>60); Globulin 4.2 g/dL (2.2-4.2); Glucose 143 mg/dL (74-106); High Density Lipoprotein 46 mg/dL; Protein, Total 8.3 g/dL (6.4-8.2); Sodium Level 140 mmol/L (136-145); Triglycerides 129 mg/dL; Very Low Density Lipoprotein 26 mg/dL (5-40)
[2018-09-28 13:08] LABS: Microalbumin:Creatinine Ratio 112.1 mg/g CRE (<30 mg/g CRE)
== END ==
PROVIDERS: Family Provider Family Medicine; PCP Family Medicine; Referring Provider Family Medicine; Visit Provider Family Medicine
DX: E11.9 Type 2 diabetes mellitus without complications (principal); W19.XXXA Unspecified fall, initial encounter; I48.0 Paroxysmal atrial fibrillation; Z79.01 Long term (current) use of anticoagulants; Z51.81 Encounter for therapeutic drug level monitoring
CPT/HCPCS: 36415; 36416; 71101; 80048; 80061; 80076; 82043; 82570; 85610

== ENCOUNTER 2018-11-14 11:02 | Outpatient (RCR) | payer MEDICARE, SELFPAY ==
[2018-07-04 08:27] VITALS: BMI 37.2
[2018-11-14 11:26] LABS: Prothrombin Time Fingerstick 23.1 SEC (11.9-14.4)
== END 2018-11-21 16:00 | disposition home or self-care (01) ==
LOC: MTLAB 11:02
PROVIDERS: Family Provider Family Medicine; PCP Family Medicine; Referring Provider Internal Medicine Cardiovascular Disease; Visit Provider Internal Medicine Cardiovascular Disease
DX: I48.0 Paroxysmal atrial fibrillation (principal); Z79.01 Long term (current) use of anticoagulants; Z51.81 Encounter for therapeutic drug level monitoring
CPT/HCPCS: 36416; 85610

== ENCOUNTER 2018-12-04 12:13 | Outpatient (RCR) | payer MEDICARE, SELFPAY ==
[2018-07-04 08:27] VITALS: BMI 37.2
== END 2018-12-04 13:00 | disposition home or self-care (01) ==
LOC: MTLAB 12:13
PROVIDERS: Family Provider Family Medicine; PCP Family Medicine; Referring Provider Internal Medicine Cardiovascular Disease; Visit Provider Internal Medicine Cardiovascular Disease
DX: I48.0 Paroxysmal atrial fibrillation (principal); Z79.01 Long term (current) use of anticoagulants; Z51.81 Encounter for therapeutic drug level monitoring
CPT/HCPCS: 36416; 85610

== ENCOUNTER 2019-01-02 14:15 | Outpatient (RCR) | payer MEDICARE, SELFPAY ==
[2018-07-04 08:27] VITALS: BMI 37.2
[2019-01-02 12:56] VITALS: BMI 35.9
[2019-01-02 16:14] LABS: International Normalized Ratio 2.3; Prothrombin Time (Protime)PT. 25.6 SECONDS (11.7-14.9)
[2019-01-02 16:19] LABS: T4 Free Direct 1.35 ng/dL (0.76-1.46); Thyroid Stim Hormone (TSH) 2.19 uIU/mL (0.358-3.74)
== END 2019-01-02 15:00 | disposition home or self-care (01) ==
LOC: MTLAB 14:15
PROVIDERS: Physician Assistant Medical; Family Provider Family Medicine; PCP Family Medicine; Referring Provider Internal Medicine Cardiovascular Disease; Visit Provider Internal Medicine Cardiovascular Disease
DX: I48.0 Paroxysmal atrial fibrillation (principal); Z79.01 Long term (current) use of anticoagulants; Z51.81 Encounter for therapeutic drug level monitoring
CPT/HCPCS: 36415; 84439; 84443; 85610

== ENCOUNTER 2019-02-19 15:15 | Outpatient (RCR) | payer MEDICARE, SELFPAY ==
[2019-02-15 09:20] LABS: Prothrombin Time Fingerstick 28.7 SEC (11.9-14.4)
== END 2019-02-19 16:00 | disposition home or self-care (01) ==
LOC: MTLAB 15:15
PROVIDERS: Family Provider Family Medicine; PCP Family Medicine; Referring Provider Internal Medicine Cardiovascular Disease; Visit Provider Internal Medicine Cardiovascular Disease
DX: I48.0 Paroxysmal atrial fibrillation (principal); Z79.01 Long term (current) use of anticoagulants; Z51.81 Encounter for therapeutic drug level monitoring
CPT/HCPCS: 36416; 85610

== ENCOUNTER 2019-03-08 11:03 | Outpatient (RCR) | payer MEDICARE, SELFPAY ==
[2019-02-27 07:57] LABS: Prothrombin Time Fingerstick 20.2 SEC (11.9-14.4)
[2019-03-08 16:06] LABS: Prothrombin Time Fingerstick 19.2 SEC (11.9-14.4)
== END 2019-03-08 12:03 | disposition home or self-care (01) ==
LOC: MTLAB 11:03
PROVIDERS: Family Provider Family Medicine; PCP Family Medicine; Referring Provider Internal Medicine Cardiovascular Disease; Visit Provider Internal Medicine Cardiovascular Disease
DX: I48.0 Paroxysmal atrial fibrillation (principal); Z79.01 Long term (current) use of anticoagulants; Z51.81 Encounter for therapeutic drug level monitoring
CPT/HCPCS: 36416; 85610

== ENCOUNTER → 2019-04-11 09:39 | Outpatient (CLI) | payer MEDICARE, SELFPAY ==
[2019-04-11 12:29] LABS: International Normalized Ratio 2.9; Prothrombin Time (Protime)PT. 30.3 SECONDS (11.7-14.9)
[2019-04-11 12:49] LABS: Anion Gap 4 (5-15); BUN 20 mg/dL (7-18); BUN/Creat Ratio 19.6 RATIO (10-20); Calcium,Total 9.1 mg/dL (8.5-10.1); Chloride 105 mmol/L (98-107); Cholesterol 115 mg/dL (200); Creatinine, Serum 1.02 mg/dL (0.70-1.30); EST Glomerular Filtration Rate 77 mL/min (>60); Est Glom Filt Rate - Afr Amer 94 mL/min (>60); Glucose 132 mg/dL (74-106); High Density Lipoprotein 47 mg/dL; Potassium 4.8 mmol/L (3.5-5.1); Sodium Level 137 mmol/L (136-145); Triglycerides 127 mg/dL; Very Low Density Lipoprotein 25 mg/dL (5-40)
== END ==
PROVIDERS: Family Provider Family Medicine; PCP Family Medicine; Referring Provider Family Medicine; Visit Provider Family Medicine
DX: E11.9 Type 2 diabetes mellitus without complications (principal); I48.0 Paroxysmal atrial fibrillation; Z79.01 Long term (current) use of anticoagulants; Z51.81 Encounter for therapeutic drug level monitoring
CPT/HCPCS: 36415; 80048; 80061; 83036; 85610

== ENCOUNTER 2019-06-18 11:20 | Outpatient (RCR) | payer MEDICARE, SELFPAY ==
[2019-06-07 14:05] LABS: Prothrombin Time Fingerstick 37.2 SEC (11.9-14.4)
[2019-06-18 14:09] LABS: Prothrombin Time (Protime)PT. 40.5 SECONDS (11.7-14.9)
[2019-06-18 14:12] LABS: International Normalized Ratio 4.1
[2019-06-20 15:41] LABS: Prothrombin Time Fingerstick 45.9 SEC (11.9-14.4)
== END 2019-06-18 18:00 | disposition home or self-care (01) ==
LOC: MTLAB 11:20
PROVIDERS: Family Provider Family Medicine; PCP Family Medicine; Referring Provider Internal Medicine Cardiovascular Disease; Visit Provider Internal Medicine Cardiovascular Disease
DX: I48.0 Paroxysmal atrial fibrillation (principal); Z79.01 Long term (current) use of anticoagulants; Z51.81 Encounter for therapeutic drug level monitoring
CPT/HCPCS: 36415; 36416; 85610

== ENCOUNTER 2019-07-02 10:50 | Outpatient (RCR) | payer MEDICARE, SELFPAY | END 2019-07-02 18:00 | disposition home or self-care (01) | LOC: MTLAB 10:50 | PROVIDERS: Family Provider Family Medicine; PCP Family Medicine; Referring Provider Internal Medicine Cardiovascular Disease; Visit Provider Internal Medicine Cardiovascular Disease | DX: I48.0 Paroxysmal atrial fibrillation (principal); Z79.01 Long term (current) use of anticoagulants | CPT/HCPCS: 36416; 85610 ==

== ENCOUNTER 2019-07-30 09:16 | Outpatient (RCR) | payer MEDICARE, SELFPAY ==
[2019-07-30 09:41] LABS: Prothrombin Time Fingerstick 31.3 SEC (11.9-14.4)
== END 2019-07-30 18:00 | disposition home or self-care (01) ==
LOC: MTLAB 09:16
PROVIDERS: Family Provider Family Medicine; PCP Family Medicine; Referring Provider Internal Medicine Cardiovascular Disease; Visit Provider Internal Medicine Cardiovascular Disease
DX: I48.0 Paroxysmal atrial fibrillation (principal); Z79.01 Long term (current) use of anticoagulants
CPT/HCPCS: 36416; 85610

== ENCOUNTER 2019-09-04 10:07 | Outpatient (RCR) | payer MEDICARE, SELFPAY ==
[2019-09-04 10:35] LABS: Prothrombin Time Fingerstick 29.1 SEC (11.9-14.4)
== END 2019-09-04 18:00 | disposition home or self-care (01) ==
LOC: MTLAB 10:07
PROVIDERS: Family Provider Family Medicine; PCP Family Medicine; Referring Provider Internal Medicine Cardiovascular Disease; Visit Provider Internal Medicine Cardiovascular Disease
DX: I48.0 Paroxysmal atrial fibrillation (principal); Z79.01 Long term (current) use of anticoagulants
CPT/HCPCS: 36416; 85610

== ENCOUNTER 2019-10-10 10:12 | Outpatient (RCR) | payer MEDICARE, SELFPAY ==
[2019-09-04 10:58] VITALS: BMI 35.1
[2019-10-10 12:36] LABS: BNP,B-Type NATRIURETIC PEPTIDE 290.3 pg/mL (0-100)
[2019-10-10 12:38] LABS: International Normalized Ratio 2.6; Prothrombin Time (Protime)PT. 27.7 SECONDS (11.7-14.9)
== END 2019-10-10 18:00 | disposition home or self-care (01) ==
LOC: MTLAB 10:12
PROVIDERS: Family Provider Family Medicine; PCP Family Medicine; Referring Provider Internal Medicine Cardiovascular Disease; Visit Provider Internal Medicine Cardiovascular Disease
DX: I48.0 Paroxysmal atrial fibrillation (principal); Z79.01 Long term (current) use of anticoagulants; I50.32 Chronic diastolic (congestive) heart failure
CPT/HCPCS: 36415; 83880; 85610

== ENCOUNTER → 2019-10-15 06:38 | Outpatient (CLI) | payer MEDICARE, SELFPAY ==
[2019-09-04 10:58] VITALS: BMI 35.1
--- NOTE | 2019-10-15 06:39 | ECHOD_ITS ---
Reason For Study: CAD Procedure This was a 2D Doppler, Color Flow transthoracic echocardiogram. Exam performed in department. Left Ventricle Normal LV size. Moderate concentric left ventricular hypertrophy. Left ventricular systolic function is normal. The estimated ejection fraction is 60 %. Diastolic function is indeterminate. No regional wall motion abnormalities noted. Right Ventricle Normal RV size. Normal systolic function. Atria The left atrium is severely enlarged. Normal right atrium. Mitral Valve Normal mitral valve. Tricuspid Valve Normal tricuspid valve. Mild (1+) tricuspid valve insufficiency. Pulmonary artery systolic pressure is 30 mmHg. Aortic Valve Trisinus/trileaflet aortic valve. Mild (1+) aortic valve insufficiency. Pulmonic Valve Normal pulmonic valve. Great Vessels Normal aortic root. The pulmonary artery is normal size. Normal inferior vena cava. Pericardium/Pleural No pericardial effusion. MMode/2D Measurements & Calculations LVIDd: 4.1 cm IVSd: 1.6 cm Ao root diam: 3.3 cm LVIDs: 2.8 cm LVPWd: 1.6 cm RVDd: 3.6 cm FS: 30.2 % LAV(MOD-bp): 128.5 ml LA A4 area: 36.4 cm2 LA dimension(2D): 6.3 cm LAV(MOD-bp) Indexed: 57.8 ml/m2 LAV(MOD-sp2): 107.2 ml LAV(MOD-sp4): 152.5 ml RA A4 area: 18.8 cm2 Doppler Measurements & Calculations MV E max kameron: 114.1 cm/sec Ao V2 max: 136.1 cm/sec AI max kameron: 354.5 cm/sec Ao max P.4 mmHg AI max P.3 mmHg AI dec slope: 183.8 cm/sec2 AI P1/2t: 564.9 msec LV V1 max: 117.4 cm/sec PA V2 max: 83.7 cm/sec TR max kameron: 254.0 cm/sec LV V1 max P.5 mmHg TR max P.8 mmHg Interpretation Summary Normal LV size. Moderate concentric left ventricular hypertrophy. Left ventricular systolic function is normal. The estimated ejection fraction is 60 %. Diastolic function is indeterminate. The left atrium is severely enlarged. Pulmonary artery systolic pressure is 30 mmHg. Ordering Physician: William Solis Referring Physician: Shahriar Haynes Performed By: Ruth Alfonso RDCS
--- NOTE | 2019-10-15 12:29 | STRESSREP ---
Stress Test Report Pharmacologic myocardial perfusion stress test. 68-year-old man with a history of coronary artery disease status post coronary artery bypass surgery. Stress protocol: Resting EKG demonstrates normal sinus rhythm with a rate of 73 bpm normal intervals are noted. 0.4 mg of regadenoson was infused per usual protocol followed by Intravenous saline flush injection continuous EKG monitoring was performed. The maximum heart rate attained was 83 bpm which was 54% of maximal predicted heart rate the maximum workload was 1 metabolic equivalent. At rest there were no ST or T wave changes noted to suggest abnormal flow reserve at peak infusion nonspecific ST-T wave changes were noted. The resting blood pressure 110/68 with a final blood pressure 113/73. Myocardial perfusion protocol. 14.1 mCi of technetium 99m sestamibi was injected at rest. 0.4 mg of regadenoson was infused per usual protocol peak infusion 44.4 mCi of technetium 99m sestamibi was injected stress images were obtained stress and rest images were reconstructed and compared in the short axis vertical long horizontal long axis. Gated images were also obtained Perfusion SPECT analysis: Review of the stress images demonstrate normal uptake of tracer noted in all areas of the myocardium the resting images similarly demonstrated normal uptake of tracer noted in all areas of the myocardium. No areas of reversibility are noted suggest ischemia no previous infarct is noted. Gated SPECT analysis: The gated ejection fraction is noted to be 77%. Conclusion: Normal pharmacologic myocardial perfusion stress test. Preserved ejection fraction.
== END ==
PROVIDERS: PCP Family Medicine; Referring Provider Internal Medicine Cardiovascular Disease; Visit Provider Internal Medicine Cardiovascular Disease
DX: I25.10 Atherosclerotic heart disease of native coronary artery without angina pectoris (principal); Z95.1 Presence of aortocoronary bypass graft
CPT/HCPCS: 78452; 93017; 93306; A9500; A4216; J2785

== ENCOUNTER 2019-12-06 11:45 | Outpatient (RCR) | payer MEDICARE, SELFPAY ==
[2019-09-04 10:58] VITALS: BMI 35.1
[2019-12-06 11:50] LABS: Prothrombin Time Fingerstick 26.8 SEC (11.9-14.4)
== END 2019-12-06 18:00 | disposition home or self-care (01) ==
LOC: MTLAB 11:45
PROVIDERS: Family Provider Family Medicine; PCP Family Medicine; Referring Provider Internal Medicine Cardiovascular Disease; Visit Provider Internal Medicine Cardiovascular Disease
DX: I48.0 Paroxysmal atrial fibrillation (principal); Z79.01 Long term (current) use of anticoagulants
CPT/HCPCS: 36416; 85610

== ENCOUNTER 2020-01-10 08:45 | Outpatient (RCR) | payer MEDICARE, SELFPAY ==
[2019-09-04 10:58] VITALS: BMI 35.1
[2019-12-26 15:46] LABS: Prothrombin Time Fingerstick 38.4 SEC (11.9-14.4)
[2020-01-03 08:45] LABS: Prothrombin Time Fingerstick 37.6 SEC (11.9-14.4)
[2020-01-10 08:56] LABS: Prothrombin Time Fingerstick 29.4 SEC (11.9-14.4)
[2020-01-10 13:28] LABS: AST(SGOT) 20 U/L (15-37); Alanine Aminotransfer ALT/SGPT 26 U/L (16-61); Albumin, Serum 3.8 g/dL (3.2-5.0); Alkaline Phosphatase 117 U/L (45-117); Anion Gap 6 (5-15); BUN 22 mg/dL (7-18); Chloride 106 mmol/L (98-107); Cholesterol 114 mg/dL (200); Creatinine, Serum 1.05 mg/dL (0.70-1.30); EST Glomerular Filtration Rate 75 mL/min (>60); Est Glom Filt Rate - Afr Amer 90 mL/min (>60); Globulin 4.2 g/dL (2.2-4.2); Glucose 133 mg/dL (74-106); High Density Lipoprotein 41 mg/dL; Potassium 4.7 mmol/L (3.5-5.1); Sodium Level 140 mmol/L (136-145); Triglycerides 98 mg/dL; Very Low Density Lipoprotein 20 mg/dL (5-40)
[2020-01-10 13:31] LABS: Microalbumin:Creatinine Ratio 74.1 mg/g CRE (<30 mg/g CRE)
== END 2020-01-10 18:00 | disposition home or self-care (01) ==
LOC: MTLAB 08:45
PROVIDERS: Family Provider Family Medicine; PCP Family Medicine; Referring Provider Internal Medicine Cardiovascular Disease; Visit Provider Internal Medicine Cardiovascular Disease
DX: E11.9 Type 2 diabetes mellitus without complications (principal); I48.0 Paroxysmal atrial fibrillation; Z79.01 Long term (current) use of anticoagulants
CPT/HCPCS: 36415; 36416; 80048; 80061; 80076; 82043; 82570; 85610

== ENCOUNTER → 2020-03-06 08:19 | Outpatient (CLI) | payer MEDICARE, SELFPAY ==
[2020-03-05 09:34] VITALS: BMI 32.3
[2020-03-06 10:41] LABS: Prothrombin Time (Protime)PT. 22.4 SECONDS (11.7-14.9)
[2020-03-06 10:56] LABS: Thyroid Stim Hormone (TSH) 4.03 uIU/mL (0.358-3.74)
[2020-03-06 10:59] LABS: Anion Gap 4 (5-15); BUN 21 mg/dL (7-18); BUN/Creat Ratio 17.8 RATIO (10-20); Calcium,Total 8.8 mg/dL (8.5-10.1); Chloride 107 mmol/L (98-107); Creatinine, Serum 1.18 mg/dL (0.70-1.30); EST Glomerular Filtration Rate 65 mL/min (>60); Est Glom Filt Rate - Afr Amer 79 mL/min (>60); Glucose 138 mg/dL (74-106); Hemoglobin A1c 6.6 % (3.8-5.6); Potassium 5.2 mmol/L (3.5-5.1); Sodium Level 139 mmol/L (136-145)
== END ==
PROVIDERS: PCP Family Medicine; Referring Provider Physician Assistant Medical; Visit Provider Physician Assistant Medical
DX: I48.0 Paroxysmal atrial fibrillation (principal); E11.9 Type 2 diabetes mellitus without complications; I50.9 Heart failure, unspecified; E78.00 Pure hypercholesterolemia, unspecified; Z79.01 Long term (current) use of anticoagulants
CPT/HCPCS: 36415; 80048; 83036; 84443; 85610

== ENCOUNTER 2020-04-10 09:33 | Outpatient (RCR) | payer MEDICARE, SELFPAY ==
[2019-09-04 10:58] VITALS: BMI 35.1
[2020-03-05 09:34] VITALS: BMI 32.3
[2020-03-27 15:20] LABS: Prothrombin Time Fingerstick 38.2 SEC (11.9-14.4)
[2020-04-11 11:16] LABS: Prothrombin Time Fingerstick 21.9 SEC (11.9-14.4)
== END 2020-04-10 18:00 | disposition home or self-care (01) ==
LOC: MTLAB 09:33
PROVIDERS: Family Provider Family Medicine; PCP Family Medicine; Referring Provider Internal Medicine Cardiovascular Disease; Visit Provider Internal Medicine Cardiovascular Disease
DX: I48.0 Paroxysmal atrial fibrillation (principal); Z79.01 Long term (current) use of anticoagulants
CPT/HCPCS: 36416; 85610

== ENCOUNTER 2020-06-13 08:54 | Outpatient (RCR) | payer MEDICARE, SELFPAY ==
[2020-03-05 09:34] VITALS: BMI 32.3
[2020-05-27 10:21] LABS: Prothrombin Time Fingerstick 25.1 SEC (11.9-14.4)
[2020-06-13 09:06] LABS: Prothrombin Time Fingerstick 26.3 SEC (11.9-14.4)
== END 2020-06-13 18:00 | disposition home or self-care (01) ==
LOC: MTLAB 08:54
PROVIDERS: Family Provider Family Medicine; PCP Family Medicine; Referring Provider Internal Medicine Cardiovascular Disease; Visit Provider Internal Medicine Cardiovascular Disease
DX: I48.0 Paroxysmal atrial fibrillation (principal); Z79.01 Long term (current) use of anticoagulants
CPT/HCPCS: 36416; 85610

== ENCOUNTER 2020-07-23 08:37 | Outpatient (RCR) | payer MEDICARE, SELFPAY ==
[2020-03-05 09:34] VITALS: BMI 32.3
[2020-07-23 08:51] LABS: Prothrombin Time Fingerstick 28.5 SEC (11.9-14.4)
== END 2020-07-23 18:00 | disposition home or self-care (01) ==
LOC: MTLAB 08:37
PROVIDERS: Family Provider Family Medicine; PCP Family Medicine; Referring Provider Internal Medicine Cardiovascular Disease; Visit Provider Internal Medicine Cardiovascular Disease
DX: I48.0 Paroxysmal atrial fibrillation (principal); Z79.01 Long term (current) use of anticoagulants; D68.59 Other primary thrombophilia
CPT/HCPCS: 36416; 85610

== ENCOUNTER 2020-09-17 08:45 | Outpatient (RCR) | payer MEDICARE, SELFPAY ==
[2020-03-05 09:34] VITALS: BMI 32.3
[2020-09-17 08:56] LABS: Prothrombin Time Fingerstick 20.6 SEC (11.9-14.4)
== END 2020-09-17 18:00 | disposition home or self-care (01) ==
LOC: MTLAB 08:45
PROVIDERS: Family Provider Family Medicine; PCP Family Medicine; Referring Provider Internal Medicine Cardiovascular Disease; Visit Provider Internal Medicine Cardiovascular Disease
DX: I48.0 Paroxysmal atrial fibrillation (principal); Z79.01 Long term (current) use of anticoagulants; D68.59 Other primary thrombophilia
CPT/HCPCS: 36416; 85610

== ENCOUNTER 2020-10-08 09:13 | Outpatient (RCR) | payer MEDICARE, SELFPAY ==
[2020-03-05 09:34] VITALS: BMI 32.3
[2020-10-08 09:36] LABS: Prothrombin Time Fingerstick 22.6 SEC (11.9-14.4)
== END 2020-10-08 18:00 | disposition home or self-care (01) ==
LOC: MTLAB 09:13
PROVIDERS: Family Provider Family Medicine; PCP Family Medicine; Referring Provider Internal Medicine Cardiovascular Disease; Visit Provider Internal Medicine Cardiovascular Disease
DX: I48.0 Paroxysmal atrial fibrillation (principal); D68.59 Other primary thrombophilia; Z79.01 Long term (current) use of anticoagulants
CPT/HCPCS: 36416; 85610

== ENCOUNTER 2020-10-30 09:56 | Outpatient (RCR) | payer MEDICARE, SELFPAY ==
[2020-03-05 09:34] VITALS: BMI 32.3
[2020-10-30 12:24] LABS: International Normalized Ratio 2.9; Prothrombin Time (Protime)PT. 29.2 SECONDS (11.7-14.9)
[2020-10-30 12:31] LABS: AST(SGOT) 20 U/L (15-37); Alanine Aminotransfer ALT/SGPT 28 U/L (16-61); Albumin, Serum 4.1 g/dL (3.2-5.0); Alkaline Phosphatase 95 U/L (45-117); Anion Gap 5 (5-15); BUN 29 mg/dL (7-18); BUN/Creat Ratio 27.4 RATIO (10-20); Calcium,Total 9.5 mg/dL (8.5-10.1); Chloride 108 mmol/L (98-107); Creatinine, Serum 1.06 mg/dL (0.70-1.30); EST Glomerular Filtration Rate 74 mL/min (>60); Est Glom Filt Rate - Afr Amer 89 mL/min (>60); Glucose 127 mg/dL (74-106); Potassium 4.4 mmol/L (3.5-5.1); Protein, Total 8.1 g/dL (6.4-8.2); Sodium Level 139 mmol/L (136-145)
== END 2020-10-30 18:00 | disposition home or self-care (01) ==
LOC: MTLAB 09:56
PROVIDERS: Family Provider Family Medicine; PCP Family Medicine; Referring Provider Internal Medicine Cardiovascular Disease; Visit Provider Internal Medicine Cardiovascular Disease
DX: I48.0 Paroxysmal atrial fibrillation (principal); D68.59 Other primary thrombophilia; Z79.01 Long term (current) use of anticoagulants
CPT/HCPCS: 36415; 80053; 85610

== ENCOUNTER 2020-12-10 07:44 | Outpatient (RCR) | payer MEDICARE, SELFPAY ==
[2020-03-05 09:34] VITALS: BMI 32.3
[2020-11-27 07:50] VITALS: BMI 35.7
[2020-12-10 11:36] LABS: INR Fingerstick 2.5; Prothrombin Time Fingerstick 28.2 SEC (11.9-14.4)
== END 2020-12-10 18:00 | disposition home or self-care (01) ==
LOC: MTLAB 07:44
PROVIDERS: Family Provider Family Medicine; PCP Family Medicine; Referring Provider Internal Medicine Cardiovascular Disease; Visit Provider Internal Medicine Cardiovascular Disease
DX: I48.0 Paroxysmal atrial fibrillation (principal); D68.59 Other primary thrombophilia; Z79.01 Long term (current) use of anticoagulants
CPT/HCPCS: 36416; 85610

== ENCOUNTER → 2021-01-13 08:09 | Outpatient (CLI) | payer MEDICARE, SELFPAY ==
[2020-11-27 07:50] VITALS: BMI 35.7
--- NOTE | 2021-01-13 08:11 | ART_ITS ---
Reason For Study: PAD Procedure A bilateral lower extremity continuous wave Doppler with analog waveform analysis and ankle brachial indexes. Unable to exercise patient due to bilateral NONCOMPRESSIBLE DPAs & PTAs. Left Segmental Pressures Left brachial= 159mmHg. Left posterior tibial artery = >254mmHg. Left dorsalis pedis artery = >254mmHg. Left digit = 162 mmHg. The left posterior tibial artery waveforms are monophasic. The left dorsalis pedis waveforms are triphasic. Right Segmental Pressures Right brachial= 152mmHg. Right posterior tibial artery = >254mmHg. Right dorsalis pedis artery = >254mmHg. Right digit = 151 mmHg. The right posterior tibial artery waveforms are triphasic. The right dorsalis pedis waveforms are triphasic. Indices The right ankle brachial index by the dorsalis pedis is NONCOMPRESSIBLE. The right ankle brachial index by the posterior tibial artery is NONCOPRESSIBLE. The right digital-brachial index is 0.95. The left ankle brachial index by the dorsalis pedis is NONCOMPRESSIBLE. The left ankle brachial index by the posterior tibial artery is NONCOMPRESSIBLE. The left digital-brachial index is 1.02. VL/Ankle Brachial Index Interpretation Summary Triphasic Doppler waveforms are noted at ankle level on the right. Triphasic an d monophasic Doppler waveforms are noted at ankle level on the left. Pulse-volume recordings appear satisfactory at ankle and digital levels bilaterally. Resting ankle-brachial indices could not be det ermined on either side due to the non-compressibility of the vasculature at ankle level bilateral ly. Digital-brachial indices are normal bilaterally. There is evidence of arterial calcification at ankle level bilaterally. There i s no evidence of significant arterial occlusive disease in the lower extremities bilaterally. Ordering Physician: Shahriar Haynes Referring Physician: Shahriar Haynes Performed By: Elena Kulkarni RVT, RDCS
== END ==
PROVIDERS: PCP Family Medicine; Referring Provider Family Medicine; Visit Provider Family Medicine
DX: I73.9 Peripheral vascular disease, unspecified (principal)
CPT/HCPCS: 93922

== ENCOUNTER 2021-02-24 09:30 | Outpatient (RCR) | payer MEDICARE, SELFPAY ==
[2020-11-27 07:50] VITALS: BMI 35.7
[2021-02-26 07:20] LABS: INR Fingerstick 2.5; Prothrombin Time Fingerstick 28.3 SEC (11.9-14.4)
== END 2021-02-24 18:00 | disposition home or self-care (01) ==
LOC: MTLAB 09:30
PROVIDERS: Family Provider Family Medicine; PCP Family Medicine; Referring Provider Internal Medicine Cardiovascular Disease; Visit Provider Internal Medicine Cardiovascular Disease
DX: I48.0 Paroxysmal atrial fibrillation (principal); D68.59 Other primary thrombophilia; Z79.01 Long term (current) use of anticoagulants
CPT/HCPCS: 36416; 85610

== ENCOUNTER 2021-04-21 11:22 | Outpatient (RCR) | payer MEDICARE, SELFPAY ==
[2021-03-25 01:44] VITALS: BMI 35.7
[2021-04-21 11:30] LABS: INR Fingerstick 2.3; Prothrombin Time Fingerstick 26.3 SEC (11.9-14.4)
== END 2021-04-21 18:00 | disposition home or self-care (01) ==
LOC: MTLAB 11:22
PROVIDERS: Family Provider Family Medicine; PCP Family Medicine; Referring Provider Internal Medicine Cardiovascular Disease; Visit Provider Internal Medicine Cardiovascular Disease
DX: I48.0 Paroxysmal atrial fibrillation (principal); D68.59 Other primary thrombophilia; Z79.01 Long term (current) use of anticoagulants
CPT/HCPCS: 36416; 85610

== ENCOUNTER 2021-08-12 09:12 | Outpatient (RCR) | payer MEDICARE, SELFPAY ==
[2021-04-24 02:23] VITALS: BMI 35.7
[2021-08-12 09:20] LABS: INR Fingerstick 1.9; Prothrombin Time Fingerstick 22.8 SEC (11.9-14.4)
== END 2021-08-24 18:00 | disposition home or self-care (01) ==
LOC: MTLAB 09:12
PROVIDERS: Family Provider Family Medicine; PCP Family Medicine; Referring Provider Internal Medicine Cardiovascular Disease; Visit Provider Internal Medicine Cardiovascular Disease
DX: I48.0 Paroxysmal atrial fibrillation (principal); D68.59 Other primary thrombophilia; Z79.01 Long term (current) use of anticoagulants
CPT/HCPCS: 36416; 85610

== ENCOUNTER 2021-10-21 11:54 | Outpatient (RCR) | payer MEDICARE, SELFPAY ==
[2021-08-25 02:48] VITALS: BMI 35.7
[2021-09-30 12:51] LABS: INR Fingerstick 4.2
[2021-09-30 15:30] LABS: Prothrombin Time (Protime)PT. 40.7 SECONDS (11.7-14.9)
[2021-09-30 15:40] LABS: International Normalized Ratio 4.3
[2021-10-05 14:41] LABS: INR Fingerstick 3.6; Prothrombin Time Fingerstick 40.7 SEC (11.7-14.9)
[2021-10-21 12:06] LABS: INR Fingerstick 2.2; Prothrombin Time Fingerstick 25.4 SEC (11.7-14.9)
== END 2021-10-22 18:00 | disposition home or self-care (01) ==
LOC: MTLAB 11:54
PROVIDERS: Family Provider Family Medicine; PCP Family Medicine; Referring Provider Internal Medicine Cardiovascular Disease; Visit Provider Internal Medicine Cardiovascular Disease
DX: I48.0 Paroxysmal atrial fibrillation (principal); Z79.01 Long term (current) use of anticoagulants
CPT/HCPCS: 36415; 36416; 85610

== ENCOUNTER 2021-11-03 07:16 | Outpatient (CLI) | payer MEDICARE, SELFPAY ==
--- NOTE | 2021-11-03 07:23 | CT_ITS ---
ACR Level 3 findings have been noted. An addendum which confirms receipt of the report will follow. EXAM: CT NECK WITH INTRAVENOUS CONTRAST CLINICAL INDICATION: MASS ON R SIDE OF NECK TECHNIQUE: Helically acquired images were obtained of the neck with intravenous contrast. This CT exam was performed using one or more of the following dose reduction techniques: automated exposure control, adjustment of the mA and/or kV according to patient size, and/or use of iterative reconstruction technique. This report was created using [employer] report generation technology. CONTRAST: IV 100mL Isovue-300 RADIATION DOSE: CTDIvol = 16.98 mGy, DLP = 1035.15 mGy-cm COMPARISON: None. 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 NASOPHARYNX: Unremarkable. SUPRAHYOID NECK: Unremarkable. Oropharynx, oral cavity, parapharyngeal space and retropharyngeal space are unremarkable. INFRAHYOID NECK: Unremarkable. The larynx, hypopharynx and supraglottis are unremarkable. SUBMANDIBULAR/PAROTID GLANDS: Unremarkable. Glands are normal in size. THYROID: Unremarkable. No enlarged or calcified nodules. SINUSES: Mucous retention cysts in the floor of the left maxillary sinus. BONES/JOINTS: No acute fracture. SOFT TISSUES: There is a superficial mildly thick-walled centrally slightly hypodense lesion just deep to the skin in the right upper lateral neck, at the level of the inferior margin of the parotid gland and overlying the sternocleidomastoid muscle. No muscle involvement. This measures 1.5 cm x 1.3 cm x 1.5 cm with smooth but mildly thick margin. No overlying inflammation. VASCULATURE: Moderate coarse atherosclerotic calcification at the origin of the right ICA but no significant stenosis. LYMPH NODES: No associated lymphadenopathy. LUNG APICES: Unremarkable as visualized. CT/Soft Tissue Neck WITH Contrast IMPRESSION: Indeterminate 1.5 cm superficial cystic or necrotic lesion just deep to the skin in the right upper lateral neck. No internal fat. No involvement of adjacent parotid gland or sternocleidomastoid muscle. Not typical of inflammatory or necrotic lymph node. Suspected to be a benign cystic lesion but please correlate with exam and appropriate follow-up. Electronically Signed: Vidya Bey MD at 8:09 EDT ,
[2021-11-03 07:46] LABS: CREATININE FINGERSTICK 1.3 mg/dL (0.70-1.30)
== END 2021-11-03 23:59 | disposition home or self-care (01) ==
LOC: CT 07:17
PROVIDERS: PCP Family Medicine; Visit Provider Family Medicine
DX: R22.1 Localized swelling, mass and lump, neck (principal)
CPT/HCPCS: 70491; Q9967

== ENCOUNTER 2021-11-06 07:38 | Outpatient (CLI) | payer MEDICARE, SELFPAY ==
--- NOTE | 2021-11-06 09:30 | ASPOS_PTH ---
PATIENT: GLENNA MUNGUIA LOC: [facility] U#:[id number] AGE/SX: 70/M ROOM: RE11/06/[address]: Dr. Mihai Fenton MD : 1950 BED: DIS: 11/06/2021 SPEC #: [id number] RECD: 11/06/21 10:18 STATUS: ORALIA CERDA #: [id number] ALEC: 11/06/21 09:[address]: Mihai Fenton DEPT: CYTOLOGY RECD BY: Kaley Parra ENTERED: 11/06/21 10:19 SP TYPE: ASP HERE OTHR DR: Dr. Shahriar Haynes MD Tissues: Neck, NOS Procedures: Surgery Specimen Level IV Cytology Other Fine Needle Asp on Site HEADER OPERATION: Fine needle aspiration right neck mass PRE-OP DIAGNOSIS: Right neck mass TISSUE SUBMITTED: Right neck mass DIAGNOSIS CYTOLOGY Fine needle aspiration, right neck mass (smears and cell block): Consistent with epidermal inclusion cyst. AM:bonita 11/09/2021 COMMENT The specimen is evaluated at the time of FNA by Dr. Olson. Immediate Evaluation = Consistent with epidermal inclusion cyst. Case has been reviewed in consultation with Dr. Cerda who concurs with the above diagnosis. IDC:SJ CYTOLOGY STUDY Slides are reviewed. CYTOLOGY GROSS Received is 0.2 ml of light santa-white material labeled with the patient's name, and designated right neck mass. Three imprints and two paps are made from the submitted fluid and the rest is added to CytoLyt for cell block preparation. Submitted for cytology study. / AM:bonita 11/06/2021 TC:5 CPT: 67683, 55791, 67348, 05942
== END 2021-11-06 23:59 | disposition home or self-care (01) ==
LOC: LAB 07:42
PROVIDERS: PCP Family Medicine; Referring Provider Otolaryngology; Visit Provider Otolaryngology
DX: R22.1 Localized swelling, mass and lump, neck (principal)
CPT/HCPCS: 10021; 88161; 88305

== ENCOUNTER 2022-01-11 12:31 | Outpatient (RCR) | payer MEDICARE, SELFPAY ==
[2021-10-23 02:18] VITALS: BMI 35.7
[2022-01-11 12:41] LABS: INR Fingerstick 1.3; Prothrombin Time Fingerstick 16.4 SEC (11.7-14.9)
== END 2022-01-21 16:00 | disposition home or self-care (01) ==
LOC: MTLAB 12:31
PROVIDERS: Family Provider Family Medicine; PCP Family Medicine; Referring Provider Internal Medicine Cardiovascular Disease; Visit Provider Internal Medicine Cardiovascular Disease
DX: I48.0 Paroxysmal atrial fibrillation (principal); Z79.01 Long term (current) use of anticoagulants
CPT/HCPCS: 36416; 85610

== ENCOUNTER 2022-02-04 14:03 | Outpatient (RCR) | payer MEDICARE, SELFPAY ==
[2022-01-22 10:20] VITALS: BMI 35.7
[2022-02-04 14:15] LABS: INR Fingerstick 1.5; Prothrombin Time Fingerstick 18.2 SEC (11.7-14.9)
== END 2022-02-21 03:41 | disposition home or self-care (01) ==
LOC: MTLAB 14:03
PROVIDERS: Family Provider Family Medicine; PCP Family Medicine; Referring Provider Internal Medicine Cardiovascular Disease; Visit Provider Internal Medicine Cardiovascular Disease
DX: I48.0 Paroxysmal atrial fibrillation (principal); Z79.01 Long term (current) use of anticoagulants
CPT/HCPCS: 36416; 85610

== ENCOUNTER 2022-03-16 12:35 | Outpatient (RCR) | payer MEDICARE, SELFPAY ==
[2022-02-21 03:41] VITALS: BMI 35.7
[2022-03-16 12:45] LABS: INR Fingerstick 2.6; Prothrombin Time Fingerstick 29.6 SEC (11.7-14.9)
== END 2022-03-16 18:00 | disposition home or self-care (01) ==
LOC: MTLAB 12:35
PROVIDERS: Family Provider Family Medicine; PCP Family Medicine; Referring Provider Internal Medicine Cardiovascular Disease; Visit Provider Internal Medicine Cardiovascular Disease
DX: I48.0 Paroxysmal atrial fibrillation (principal); Z79.01 Long term (current) use of anticoagulants
CPT/HCPCS: 36416; 85610

== ENCOUNTER 2022-04-23 08:51 | Outpatient (RCR) | payer MEDICARE, SELFPAY ==
[2022-03-25 01:40] VITALS: BMI 35.7
[2022-04-14 08:00] LABS: Prothrombin Time Fingerstick 34.7 SEC (11.7-14.9)
== END 2022-04-23 18:00 | disposition home or self-care (01) ==
LOC: MTLAB 08:51
PROVIDERS: Family Provider Family Medicine; PCP Family Medicine; Referring Provider Internal Medicine Cardiovascular Disease; Visit Provider Internal Medicine Cardiovascular Disease
DX: I48.0 Paroxysmal atrial fibrillation (principal); Z79.01 Long term (current) use of anticoagulants
CPT/HCPCS: 36416; 85610

== ENCOUNTER → 2022-04-23 | Outpatient (CLI) | payer MEDICARE, SELFPAY ==
[2022-04-23 10:23] LABS: Microalbumin:Creatinine Ratio 166.3 mg/g CRE (<30 mg/g CRE)
[2022-04-23 10:44] LABS: Anion Gap 7 (5-15); BUN 23 mg/dL (7-18); BUN/Creat Ratio 27.4 RATIO (10-20); Calcium,Total 9.1 mg/dL (8.5-10.1); Chloride 108 mmol/L (98-107); Cholesterol 108 mg/dL (200); Creatinine, Serum 0.84 mg/dL (0.70-1.30); EST Glomerular Filtration Rate 96 mL/min (>60); Est Glom Filt Rate - Afr Amer 116 mL/min (>60); Glucose 143 mg/dL (74-106); High Density Lipoprotein 48 mg/dL; PSA,Total - Annual Screen 0.49 ng/mL (0.00-4.00); Potassium 4.2 mmol/L (3.5-5.1); Sodium Level 142 mmol/L (136-145); Triglycerides 62 mg/dL; Very Low Density Lipoprotein 12 mg/dL (5-40)
== END | disposition home or self-care (01) ==
LOC: MFPLAB 08:33
PROVIDERS: PCP Family Medicine; Referring Provider Family Medicine; Visit Provider Family Medicine
DX: E11.9 Type 2 diabetes mellitus without complications (principal); N40.0 Benign prostatic hyperplasia without lower urinary tract symptoms; Z12.5 Encounter for screening for malignant neoplasm of prostate
CPT/HCPCS: 36415; 80048; 80061; 82043; 82570; 84153; G0103

== ENCOUNTER 2022-05-10 09:10 | Outpatient (RCR) | payer MEDICARE, SELFPAY ==
[2022-04-24 04:20] VITALS: BMI 35.7
[2022-05-10 09:25] LABS: Prothrombin Time Fingerstick 44.7 SEC (11.7-14.9)
[2022-05-10 10:21] LABS: Prothrombin Time (Protime)PT. 44.8 SECONDS (11.7-14.9)
[2022-05-10 10:26] LABS: International Normalized Ratio 4.8
== END 2022-05-10 18:00 | disposition home or self-care (01) ==
LOC: MTLAB 09:10
PROVIDERS: Family Provider Family Medicine; PCP Family Medicine; Referring Provider Internal Medicine Cardiovascular Disease; Visit Provider Internal Medicine Cardiovascular Disease
DX: I48.0 Paroxysmal atrial fibrillation (principal); Z79.01 Long term (current) use of anticoagulants
CPT/HCPCS: 36415; 36416; 85610

== ENCOUNTER 2022-05-31 14:17 | Inpatient (IN) | payer MEDICARE, SELFPAY ==
[2022-05-31] VITALS (7 sets, daily range): BP systolic 114–136; BP diastolic 67–103; PULSE 67–97; RESP 17–22; TEMP 35.9–37.6; O2SAT 98–99; BMI 29.3; BMI 28.8
--- NOTE | 2022-05-31 14:53 | EDS_ITS ---
HPI History of Present Illness Chief Complaint: General Illness Informant: patient and family Onset/Context/Timing Onset: Weeks (2) Context: Gradual Onset Timing: Continuous Quality: Weakness Location: Right leg Worsened by: Nothing Relieved by: Nothing Narrative Narrative: Patient presents with an irregular heartbeat for the past 2 weeks. Patient also admits to some generalized weakness. Patient states that he was trying to go up some steps and his right leg became weak. Patient has a history of atrial fibrillation and saw Dr. Ross for that. Patient states that he gave him some medication and thought he would go out of it. Patient states he has been on Cou madin for his atrial fibrillation. Patient admits to some left leg swelling. Patient admits to some intermittent chest pain. Patient states it is brief. Patient states it is sharp. Patient states nothing makes it better and nothing makes it worse. 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 Diminished pulses in lower extremity Essential (primary) hypertension Hernia History of CVA (cerebrovascular accident) Hyperlipidemia Obesity Paroxysmal atrial fibrillation Type 2 diabetes mellitus Home Medications HANDICAP PLACARD #1 ea 01/06/19 [Rx Last Taken Unknown] furosemide 40 mg tablet 40 mg PO DAILY Swelling #90 tabs 11/27/20 [Rx Last Taken 1 Month Ago ~04/30/22] atorvastatin 80 mg tablet 80 mg PO QHS #90 tabs 02/04/22 [Rx Last Taken 05/30/22] lisinopril 5 mg tablet 5 mg PO DAILY #90 tabs 02/04/22 [Rx Last Taken Unknown] metformin 500 mg tablet,extended release 24 hr 500 mg PO DAILY courtesy fill as pt is almost out 90 days #90 tabs 02/04/22 [Rx Last Taken 05/30/22] metoprolol tartrate 25 mg tablet 25 mg PO BID #180 tabs 04/01/22 [Rx Last Taken Unknown] warfarin 1 mg tablet 0.5 mg PO MOTUWETHFR 05/31/22 [History Last Taken 05/28/22] warfarin 1 mg tablet 1 mg PO SUSA 05/31/22 [History Last Taken Unknown] Allergy/AdvReac Type Severity Reaction Status Date / Time No Known Allergies Allergy Verified 05/31/22 14:18 Family History Father CAD (coronary artery disease) Mother Cancer Surgical History H/O coronary artery bypass surgery (11/22/13) History of cardioversion (09/2014) History of hernia repair History of radiofrequency ablation procedure for cardiac arrhythmia (11/2013) 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 Social History Smoking Status: Never smoker alcohol intake: never substance use type: does not use caffeine: Yes (occasional) Type: coffee what type of physical activity do you participate in: walking frequency: daily seatbelt use: always do you feel safe at home: Yes ROS ROS ED Constitutional Constitutional ED: Denies chills or fever(s) Eyes Eyes: Denies blurry vision or change in vision ENT ENT ED: Reports rhinorrhea; Denies sore throat Cardiovascular Cardiovascular: Reports chest pain and palpitations Respiratory/Chest Respiratory/Chest: Denies cough or dyspnea Gastrointestinal Gastrointestinal: Denies nausea or vomiting Genitourinary Genitourinary ED: Reports urinary incontinence; Denies dysuria or hematuria Musculoskeletal Musculoskeletal: Denies back pain or neck pain Integumentary Denies abscess or rash Neurologic Neurologic: Denies headache(s) or weakness Allergic/Immunologic Allergic/Immunologic ED: Denies mouth swelling or urticaria EXAM Physical Exam Const Vital Signs: 05/31/22 14:18 05/31/22 14:45 05/31/22 16:17 Temperature 96.6 F L Temperature Source Temporal Pulse Rate 97 88 Respiratory Rate 18 22 H Respiratory Effort Normal Non-Labored Blood Pressure 129/83 H 128/67 H Blood Pressure Mean 98 87 Pulse Ox 99 99 Oxygen Delivery Method Room Air Room Air 05/31/22 18:48 05/31/22 20:04 Temperature Temperature Source Pulse Rate 83 86 Respiratory Rate 22 H 20 H Respiratory Effort Blood Pressure 136/103 H 126/102 H Blood Pressure Mean 114 110 Pulse Ox 99 99 Oxygen Delivery Method Room Air Room Air Positive well nourished and well developed General Appearance ED: well developed and NAD HEENT Reports moist mucous membranes Neck supple and no JVD Chest Wall inspection of chest normal and palpation of chest normal Cardio regular rate and no murmurs Rhythm: abnormal rhythm irregularly irregular GI normal to inspection, nondistended, normoactive bowel sounds, non-tender, non- distended and hepatosplenomegaly Palpation: soft Extremity Extremity Narrative: There is 3+ edema of the left lower extremity. There is no edema of the right lower extremity. There is no erythema or warmth. There is no calf tenderness. General Extremety ED: Yes edema General Extremity: edema Neuro oriented x3, CN's II-XII intact bilaterally and no sensory deficits noted Sensorium / Orientation: alert Psych mental status grossly normal MDM MDM MDM Narrative Medical decision making narrative: EKG was obtained. On my interpretation, it shows atrial flutter with variable block with a rate of 86. QRS interval was within normal limits. QTc interval was within normal limits. [place] was normal. There are no acute ST or T wave changes. CBC showed leukocytosis of 16.9. Hemoglobin was 12.7 and hematocrit 40.6. Platelets were slightly low at 127. Comprehensive metabolic profile showed a potassium of 5.3 but was moderately hemolyzed. Sodium was slightly low at 134. BUN and creatinine were normal. Anion gap was normal. Total bilirubin was elevated at 5.4, AST was 105 ALT was 62 and alkaline phosphatase was 726. Initial high-sensitivity troponin was normal at 9. 2-hour repeat high- sensitivity troponin was normal at 11. Pro time was 67.6 with an INR of 8.1. PTT was 56.8. Urinalysis shows positive nitrates with a leukocyte esterases of 25. Occult blood was 150 with 0-5 red blood cells. There were 0 white blood cells and 0 bacteria noted. Urine culture was obtained. CT scan of the brain was obtained. There is a remote right basal ganglia infarct. There is no acute abnormality noted. This was interpreted by the radiologist and reviewed by myself. Portable 1 view chest x-ray was obtained. On my interpretation, lung powell are clear. There is normal cardiac silhouette. Bony thorax is normal. There is no acute process noted. Radiologist also interpreted the x-ray and agrees. Venous duplex of the left lower extremity was obtained. There is DVT from the left groin distally. Case was discussed with Dr. Moscoso from vascular surgery. He recommended starting patient on heparin and stopping the Coumadin. Patient was started on a heparin drip. Because of the elevated bilirubin and alkaline phosphatase, CT scan of the abdomen pelvis was obtained. There are multiple low-density masses seen throughout the liver compatible with metastatic disease. There is wall thickening of the mid sigmoid colon which may be due to incomplete distention or possible mass. There is consolidation of the right lower lobe compatible with atelectasis or pneumonia. There is a stable right adrenal mass and splenic calcifications. This was interpreted by the radiologist and reviewed by myself. Patient was advised of his findings. Case was discussed with the hospitalist. He will admit the patient to his service. Patient understood and was agreeable with the plan. All questions were answered. Lab Data Attestation: I reviewed the patient's lab results. Labs: Laboratory Results - last 24 hr 05/31/22 05/31/22 05/31/22 15:05 15:05 15:05 WBC 16.9 H RBC 4.59 L Hgb 12.7 L Hct 40.6 MCV 88.5 MCH 27.7 MCHC 31.3 L RDW Std Deviation 52.1 H RDW Coeff of Ezequiel 16.6 H Plt Count 127 L MPV 12.9 H Immature Gran % (Auto) 1.100 H Neut % (Auto) 85.0 H Lymph % (Auto) 5.0 L Nash % (Auto) 8.1 Eos % (Auto) 0.4 Baso % (Auto) 0.4 Absolute Neuts (auto) 14.3 H Absolute Lymphs (auto) 0.85 Nucleated RBC % 0 PT Cancelled INR Cancelled APTT Cancelled Sodium 134 L Potassium 5.3 H Chloride 103 Carbon Dioxide 25.0 Anion Gap 6 BUN 18 Creatinine 1.08 Estim Creat Clear Calc 67.79 Est GFR (MDRD) Af Amer 87 Est GFR (MDRD) Non-Af 72 BUN/Creatinine Ratio 16.7 Glucose 120 H Calcium 8.7 Total Bilirubin 5.40 H AST 105 H ALT 62 H Alkaline Phosphatase 726 H Troponin I High Sens 9 Total Protein 7.3 Albumin 2.6 L Globulin 4.7 H Albumin/Globulin Ratio 0.6 L Urine Color Urine Clarity Urine pH Ur Specific [place] Urine Protein Urine Glucose (UA) Urine Ketones Urine Occult Blood Urine Nitrite Urine Bilirubin Urine Urobilinogen Ur Leukocyte Esterase Urine RBC Urine WBC Ur Squamous Epith Cells Urine Bacteria Hyaline Casts Urine Mucus 05/31/22 05/31/2205/31/22 15:56 16:11 16:40 WBC RBC Hgb Hct MCV MCH MCHC RDW Std Deviation RDW Coeff of Ezequiel Plt Count MPV Immature Gran % (Auto) Neut % (Auto) Lymph % (Auto) Nash % (Auto) Eos % (Auto) Baso % (Auto) Absolute Neuts (auto) Absolute Lymphs (auto) Nucleated RBC % PT Cancelled 67.6 H INR Cancelled 8.1 H* APTT Cancelled 56.8 H Sodium Potassium Chloride Carbon Dioxide Anion Gap BUN Creatinine Estim Creat Clear Calc Est GFR (MDRD) Af Amer Est GFR (MDRD) Non-Af BUN/Creatinine Ratio Glucose Calcium Total Bilirubin AST ALT Alkaline Phosphatase Troponin I High Sens Total Protein Albumin Globulin Albumin/Globulin Ratio Urine Color Kasia Urine Clarity Clear Urine pH 5.0 Ur Specific [place] 1.020 Urine Protein 100 H Urine Glucose (UA) Normal Urine Ketones 5 H Urine Occult Blood 150 H Urine Nitrite Positive H Urine Bilirubin 3 H Urine Urobilinogen 12 H Ur Leukocyte Esterase 25 H Urine RBC 0-5 SEEN Urine WBC 0 SEEN Ur Squamous Epith Cells 0 SEEN Urine Bacteria 0 SEEN Hyaline Casts 0-5 SEEN Urine Mucus 0 SEEN 05/31/22 17:26 WBC RBC Hgb Hct MCV MCH MCHC RDW Std Deviation RDW Coeff of Ezequiel Plt Count MPV Immature Gran % (Auto) Neut % (Auto) Lymph % (Auto) Nash % (Auto) Eos % (Auto) Baso % (Auto) Absolute Neuts (auto) Absolute Lymphs (auto) Nucleated RBC % PT INR APTT Sodium Potassium Chloride Carbon Dioxide Anion Gap BUN Creatinine Estim Creat Clear Calc Est GFR (MDRD) Af Amer Est GFR (MDRD) Non-Af BUN/Creatinine Ratio Glucose Calcium Total Bilirubin AST ALT Alkaline Phosphatase Troponin I High Sens 11 Total Protein Albumin Globulin Albumin/Globulin Ratio Urine Color Urine Clarity Urine pH Ur Specific [place] Urine Protein Urine Glucose (UA) Urine Ketones Urine Occult Blood Urine Nitrite Urine Bilirubin Urine Urobilinogen Ur Leukocyte Esterase Urine RBC Urine WBC Ur Squamous Epith Cells Urine Bacteria Hyaline Casts Urine Mucus Radiography Chest X-Ray - ED: 1 View, Read by ED Physician, Read by Radiologist and No Acute Disease Diagnostic Testing: Clinical Impression(s) from Imaging Studies Brain CT 05/31/22 14:58 IMPRESSION: 1. No acute intracranial abnormality. There is remote right basal ganglia infarct. 2. Underlying senescent changes with small vessel ischemia. 3. Chronic appearing maxillary sinusitis. Electronically Signed: Timoteo Swartz MD at 16:31 EST , Chest X-Ray 05/31/22 15:35 IMPRESSION: No acute pulmonary abnormality. Electronically Signed: Timoteo Swartz MD at 16:32 EST , Abdomen/Pelvis CT 05/31/22 19:18 IMPRESSION: 1. Multiple low-density masses seen throughout the liver compatible with extensive metastatic disease. 2. Wall thickening of the mid sigmoid colon which may be due to incomplete distention or a possible mass. Further evaluation colonoscopy may be beneficial. 3. Consolidation in the right lower lobe compatible with atelectasis or pneumonia. 4. Stable right adrenal mass. There are also stable splenic calcifications present which likely represent granulomas. Electronically Signed: Timoteo Swartz MD at 20:07 EST , Discharge Plan Triage Chief Complaint: General Illness ED Provider: Michael Bland Dx/Rx/DC Orders Clinical Impression: DVT of lower extremity (deep venous thrombosis), Coagulopathy, Weakness of right lower extremity, Atrial flutter Prescriptions: No Action furosemide 40 mg tablet 40 mg PO DAILY Qty: 90 3RF metoprolol tartrate 25 mg tablet 25 mg PO BID Qty: 180 3RF warfarin 1 mg Tablet 0.5 mg PO MOTUWETHFR warfarin 1 mg tablet 1 mg PO SUSA Protocol: Dose Management Condition: Tuesday Dose/Route: 1 mg Instruction: 1 x 1 mg tablet Condition: Tuesday Dose/Route: 0 mg Instruction: 0 tablets Condition: Tuesday Dose/Route: 0.5 mg Instruction: 0.5 x 1 mg tablets Condition: Tuesday Dose/Route: 0.5 mg Instruction: 0.5 x 1 mg tablets Condition: Dose/Route: 0.5 mg Instruction: 0.5 x 1 mg tablets Condition: Tuesday Dose/Route: 0.5 mg Instruction: 0.5 x 1 mg tablets Condition: Tuesday Dose/Route: 0.5 mg Instruction: 0.5 x 1 mg tablets Protocol Text: Adjustment Start Date: Tuesday05/10/22 INR Value: 4.8 INR Date: 05/10/22 Recheck Date: 05/17/22 Rx Instructions: 1 mg PO daily or otherwise as directed (DME) HANDICAP PLACARD Qty: 1 0RF Dose Instruction: As directed Rx Instructions: Handicap Placard start 01/06/19 end 01/07/2024 lisinopril 5 mg tablet 5 mg PO DAILY Qty: 90 3RF atorvastatin 80 mg tablet 80 mg PO QHS Qty: 90 3RF metformin 500 mg tablet extended release 24 hr 500 mg PO DAILY 90 Days Qty: 90 3RF Primary Care Provider: Shahriar Haynes Referrals: Shahriar Haynes MD [Primary Care Provider] - Disposition Disposition: Acute Care Hospital [facility]
--- NOTE | 2022-05-31 14:58 | VDLE_ITS ---
Reason For Study: Swelling RIGHT LEFT CFV is compressible, spontaneous, phasic, Acute deep vein thrombosis is noted in the competent and demonstrates normal left EIV, CFV, FV, PopV, T/P Trunk, augmentation. GastrocV, PTV, PeroV, and SoleusV. Procedure Acute superficial vein thrombosis is noted This is a venous duplex using B-mode, color in the left SFJ. flow and spectral Doppler. GSV was previously harvested. Exam performed portable in ED. A preliminary report was called and/or faxed to [facility]. VL/Venous Duplex US, Unilateral Interpretation Summary Acute deep vein thrombosis is noted in the left external iliac vein, left commo n femoral vein, left femoral vein, left popliteal vein, left tibio-peroneal trunk vein, left gastroc nemius vein, left posterior tibial vein, left peroneal vein, left soleal vein. Left great saphenous vein absent Ordering Physician: Michael Bland Referring Physician: Shahriar Haynes Performed By: Alida Mccabe RVT
--- NOTE | 2022-05-31 14:58 | CT_ITS ---
EXAM: CT HEAD WITHOUT INTRAVENOUS CONTRAST CLINICAL INDICATION: Leg weakness TECHNIQUE: Multiple axial images were obtained of the head without intravenous contrast. This CT exam was performed using one or more of the following dose reduction techniques: automated exposure control, adjustment of the mA and/or kV according to patient size, and/or use of iterative reconstruction technique. This report was created using [employer] report generation technology. COMPARISON: None. FINDINGS: BRAIN AND EXTRA-AXIAL SPACES: There is enlargement of the ventricular system and cortical sulci. There is a remote infarct in the right basal ganglia with encephalomalacia. There is hypoattenuation in the periventricular white matter. No intra- or extra-axial hemorrhage. No intracranial mass or mass effect. Posterior fossa structures are unremarkable. Basal cisterns are patent. BONES/JOINTS: Unremarkable. No discrete lytic or blastic abnormalities. SINUSES: There is marked mucosal thickening in the maxillary sinuses greater on the right than the left. There is also opacification of scattered ethmoid air cells. MASTOID AIR CELLS: Unremarkable. Clear. ORBITS: Visualized globes, extraocular muscles, optic nerves and retrobulbar fat appear unremarkable. CT/Brain/Head without Contrast IMPRESSION: 1. No acute intracranial abnormality. There is remote right basal ganglia infarct. 2. Underlying senescent changes with small vessel ischemia. 3. Chronic appearing maxillary sinusitis. Electronically Signed: Timoteo Swartz MD at 16:31 EST ,
--- NOTE | 2022-05-31 14:58 | EKG12_ITS ---
Test Reason : GENERAL Blood Pressure : / mmHG Vent. Rate : 086 BPM Atrial Rate : 344 BPM P-R Int : 000 ms QRS Dur : 078 ms QT Int : 394 ms P-R-T Axes : 000 024 -09 degrees QTc Int : 471 ms Atrial flutter with variable A-V block Low voltage QRS (Limb Leads) Abnormal ECG Confirmed by HECTOR JUNG, CHAY ([id number]), mapping editor MONIQUE STAFFORD ([id number]) on 06/02/2022 11:08:34 AM Referred By: Confirmed By:CHAY YOUNG MD
[2022-05-31 15:23] LABS: Absolute Lymphocyte Count 0.85 X10^3/uL (0.83-4.51); Absolute Neutrophil Count 14.3 X10^3/uL (2.0-7.7); Basophil# 0.07 X10^3/uL; Basophil% 0.4 % (0-1); Eosinophil# 0.07 X10^3/uL; Eosinophils% 0.4 % (0-5); Hematocrit 40.6 % (40-54); Hemoglobin 12.7 g/dL (13.0-16.5); Lymphocyte # 0.85 X10^3/ul (0.83-4.51); Mean Corp Hgb Conc 31.3 g/dL (32-36); Mean Corpuscular Hgb 27.7 pg (27.0-32.0); Mean Corpuscular Volume 88.5 fL (80-94); Mean Platelet Vol. 12.9 fl (6.2-12.0); Monocyte# 1.36 X10^3/uL; Monocyte% 8.1 % (0-10); NRBC Flagged by Analyzer 0 % (0-5); Neutrophil # 14.34 X10^3/uL (2.7-7.7); Platelet Count 127 K/mm3 (150-450); RBC Distribution Width CV 16.6 % (11.6-14.6); RBC Distribution Width SD 52.1 fl (35.1-43.9); Red Blood Count 4.59 M/mm3 (4.6-6.2); White Blood Count 16.9 K/mm3 (4.4-11.0)
--- NOTE | 2022-05-31 15:35 | RAD_ITS ---
EXAM: XR CHEST, 1 VIEW CLINICAL INDICATION: Chest pain TECHNIQUE: Frontal view of the chest. This report was created using [employer] report generation technology. COMPARISON: 09/28/2018 FINDINGS: LUNGS AND PLEURAL SPACES: There are right hilar calcifications present which are stable. No pneumothorax. No effusion. HEART: There is an atrial appendage clip. MEDIASTINUM: Central airways and mediastinal contour are unremarkable. BONES/JOINTS: Unremarkable. SOFT TISSUES: Unremarkable. RAD/Chest 1 View (Portable) IMPRESSION: No acute pulmonary abnormality. Electronically Signed: Timoteo Swartz MD at 16:32 EST ,
[2022-05-31 15:59] LABS: ALB/GLOB Ratio 0.6 RATIO (0.9-2.4); AST(SGOT) 105 U/L (15-37); Alanine Aminotransfer ALT/SGPT 62 U/L (16-61); Albumin, Serum 2.6 g/dL (3.2-5.0); Alkaline Phosphatase 726 U/L (45-117); Anion Gap 6 (5-15); BUN 18 mg/dL (7-18); BUN/Creat Ratio 16.7 RATIO (10-20); Calcium,Total 8.7 mg/dL (8.5-10.1); Chloride 103 mmol/L (98-107); Creatinine, Serum 1.08 mg/dL (0.70-1.30); EST Glomerular Filtration Rate 72 mL/min (>60); Est Glom Filt Rate - Afr Amer 87 mL/min (>60); Estimated Creatinine Clearance 67.79 ml/min; Globulin 4.7 g/dL (2.2-4.2); Glucose 120 mg/dL (74-106); Potassium 5.3 mmol/L (3.5-5.1); Protein, Total 7.3 g/dL (6.4-8.2); Sodium Level 134 mmol/L (136-145); Troponin-I HS (w/2H Reflex) 9 pg/mL (3.0-78.0)
[2022-05-31 16:17] LABS: Bacteria 0 SEEN /hpf (None Seen); Mucous, Urine 0 SEEN /hpf (<or=2+); Squamous Epithelial Cells - UA 0 SEEN /hpf (0-5); White Blood Cells 0 SEEN /hpf (0-5)
[2022-05-31 16:26] LABS: Color, Urine Amber (Yellow); Glucose, Dipstick Normal (Normal); Ketone-Dipstick 5 mg/dl (Negative); Leukocyte Esterase-Dipstick 25 /ul (Negative); Nitrite-Dipstick Positive (Negative); Occult Blood-Urine 150 /ul (Negative); Protein-Dipstick 100 mg/dl (Negative); Urine Clarity Clear (Clear); Urine Urobilinogen 12 mg/dl (Normal)
[2022-05-31 16:29] LABS: Urine Bilirubin Dipstick 3 mg/dL (Negative)
[2022-05-31 16:31] LABS: Hyaline Cast 0-5 SEEN /lpf (0-5); Red Blood Cells-Urine 0-5 SEEN /hpf (0-5)
[2022-05-31 16:58] LABS: Partial Thromboplast Time 56.8 Seconds (24.1-36.2)
[2022-05-31 16:59] LABS: Prothrombin Time (Protime)PT. 67.6 SECONDS (11.7-14.9)
[2022-05-31 17:18] LABS: Reflex Troponin-HS? (from REC) Y
[2022-05-31 17:25] LABS: International Normalized Ratio 8.1
--- NOTE | 2022-05-31 17:46 | ED.RN ---
THIS RN RECEIVED PT'S 'S PHONE NUMBER FROM PATIENT'S . PT'S 'S NAME IS DAVID MUNGUIA PHONE NUMBER [phone].
[2022-05-31 18:03] LABS: Troponin-I HS 11 pg/mL (3.0-78.0)
--- NOTE | 2022-05-31 19:18 | CT_ITS ---
EXAM: CT ABDOMEN AND PELVIS WITH INTRAVENOUS CONTRAST CLINICAL INDICATION: pain -- IV PO Contrast TECHNIQUE: Helically acquired images were obtained of the abdomen and pelvis with intravenous contrast. This CT exam was performed using one or more of the following dose reduction techniques: automated exposure control, adjustment of the mA and/or kV according to patient size, and/or use of iterative reconstruction technique. This report was created using [employer] report generation technology. CONTRAST: Oral and amp; IV Gastrografin and amp; 100mL Isovue-300 COMPARISON: 09/11/2016 FINDINGS: LOWER THORAX: There is minimal consolidation in the right lung base which may represent atelectasis or pneumonia. No cardiomegaly. No significant pericardial effusion. ABDOMEN: LIVER: There are multiple low-density masses seen throughout the liver compatible with extensive metastatic disease. GALLBLADDER AND BILE DUCTS: There are several gallstones present but no inflammation. No gallbladder distention or wall edema. No intra- or extrahepatic biliary ductal dilation. PANCREAS: Unremarkable. No focal cystic or solid mass. SPLEEN: There multiple splenic granulomas which are stable. ADRENALS: There is a persistent low-density mass in the right adrenal gland that measures 2.9 x 2.3 cm is unchanged from the reference exam may represent an adenoma. KIDNEYS AND URETERS: There are low-density masses seen in both kidneys compatible with simple cysts which are stable. No follow-up imaging is necessary. No hydronephrosis. STOMACH AND BOWEL: There is mild thickening of the wall of the mid sigmoid colon may be due to incomplete distention or possibly a developing mass. PELVIS: APPENDIX: No evidence of acute appendicitis. BLADDER: Unremarkable. REPRODUCTIVE: Unremarkable as visualized. No mass. ABDOMEN and PELVIS: INTRAPERITONEAL SPACE: Unremarkable. No ascites or other fluid collection. No free air. BONES/JOINTS: Unremarkable. No suspicious lytic or blastic abnormality. SOFT TISSUES: Unremarkable. No discrete abdominal or pelvic wall hernia. VASCULATURE: Inferior vena cava filter is in place. Abdominal aorta is non-dilated. LYMPH NODES: The multiple calcified lymph nodes in the subcarinal space and right hilum. CT/Abdomen/Pelvis WITH Contrast IMPRESSION: 1. Multiple low-density masses seen throughout the liver compatible with extensive metastatic disease. 2. Wall thickening of the mid sigmoid colon which may be due to incomplete distention or a possible mass. Further evaluation colonoscopy may be beneficial. 3. Consolidation in the right lower lobe compatible with atelectasis or pneumonia. 4. Stable right adrenal mass. There are also stable splenic calcifications present which likely represent granulomas. Electronically Signed: Timoteo Swartz MD at 20:07 EST ,
[2022-05-31] MEDS: Heparin Injection (Vial) 5,000 UNIT/ML VIAL 7500 UNIT IV (19:34)
[2022-05-31] MEDS: HEPARIN/D5w 25,000 UNITS 25,000 UNITS/250 ML IV.SOLN. 14 UNITS CONT INF (19:38)
--- NOTE | 2022-05-31 20:41 | PCM.HP.STD ---
[facility] - General General Date of Admission: 05/31/22 Date of Service: 05/31/22 Chief Complaint: Generalized weakness, left leg swelling, incontinence of urine [facility] Narrative GLENNA MUNGUIA, is a 71 M who presented to my office earlier today with chief complaints of transient slurring of speech, left leg swelling and weakness. The patient had stated that he had progressive weakness over the last week and a half, and his admitted that he had periods of time when he was slow to respond and speech and was at times slurring his speech. Patient does have a significant past medical history of CVA in 2008. Recently he was started on a medication by his human resources clerk for atrial fibrillation. He also complained of worsening symptoms of urinary incontinence which was new. I therefore sent him to the emergency room for further evaluation and now as a hospitalist I am admitting the patient. CT scan of the head was negative for acute changes however an old infarct was visualized. Urinalysis is consistent with a urinary tract infection. Laboratory studies were remarkable for elevated liver enzymes as well as a markedly elevated INR. CT scan of the abdomen was then ordered and found to have metastatic disease of the liver and possible lesion in his colon. He denies abdominal pain and doesn't have nausea presently. Patient will be admitted for further workup and treatment. 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 Diminished pulses in lower extremity Essential (primary) hypertension Hernia History of CVA (cerebrovascular accident) Hyperlipidemia Obesity Paroxysmal atrial fibrillation Type 2 diabetes mellitus Home Medications HANDICAP PLACARD #1 ea 01/06/19 [Rx Last Taken Unknown] furosemide 40 mg tablet 40 mg PO DAILY Swelling #90 tabs 11/27/20 [Rx Last Taken 1 Month Ago ~04/30/22] atorvastatin 80 mg tablet 80 mg PO QHS #90 tabs 02/04/22 [Rx Last Taken 05/30/22] lisinopril 5 mg tablet 5 mg PO DAILY #90 tabs 02/04/22 [Rx Last Taken Unknown] metformin 500 mg tablet,extended release 24 hr 500 mg PO DAILY courtesy fill as pt is almost out 90 days #90 tabs 02/04/22 [Rx Last Taken 05/30/22] metoprolol tartrate 25 mg tablet 25 mg PO BID #180 tabs 04/01/22 [Rx Last Taken Unknown] warfarin 1 mg tablet 0.5 mg PO MOTUWETHFR 05/31/22 [History Last Taken 05/28/22] warfarin 1 mg tablet 1 mg PO SUSA 05/31/22 [History Last Taken Unknown] Allergy/AdvReac Type Severity Reaction Status Date / Time No Known Allergies Allergy Verified 05/31/22 14:18 Family History Father CAD (coronary artery disease) Mother Cancer Surgical History H/O coronary artery bypass surgery (11/22/13) History of cardioversion (09/2014) History of hernia repair History of radiofrequency ablation procedure for cardiac arrhythmia (11/2013) 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 Social History Smoking Status: Never smoker alcohol intake: never substance use type: does not use caffeine: Yes (occasional) Type: coffee what type of physical activity do you participate in: walking frequency: daily seatbelt use: always do you feel safe at home: Yes ROS Constitutional Constitutional: Reports weakness; Denies change in weight Eyes Eyes: Denies blurry vision ENT HEENT: Denies abnormal hearing Cardiovascular Cardiovascular: Denies chest pain Respiratory/Chest Respiratory/Chest: Denies cough Gastrointestinal Gastrointestinal: Denies abdominal pain Genitourinary Genitourinary: Reports dysuria and hematuria Musculoskeletal Musculoskeletal: Reports muscle weakness Integumentary Integumentary: Denies dry skin Neurologic Neurologic: Denies abnormal gait or abnormal speech Psychiatric Psychiatric: Denies anxiety Vital Signs Vital Signs Vital Signs: 05/31/22 14:18 05/31/22 14:45 05/31/22 16:17 Temperature 96.6 F L Temperature Source Temporal Pulse Rate 97 88 Respiratory Rate 18 22 H Respiratory Effort Normal Non-Labored Blood Pressure 129/83 H 128/67 H Blood Pressure Mean 98 87 Pulse Ox 99 99 Oxygen Delivery Method Room Air Room Air 05/31/22 18:48 05/31/22 20:04 Temperature Temperature Source Pulse Rate 83 86 Respiratory Rate 22 H 20 H Respiratory Effort Blood Pressure 136/103 H 126/102 H Blood Pressure Mean 114 110 Pulse Ox 99 99 Oxygen Delivery Method Room Air Room Air Weight Weight: 210 lb 9.6 oz Body Mass Index (BMI) 29.3 Physical Exam Const oriented x3 General Appearance: cooperative HEENT normocephalic and head/scalp atraumatic Eyes PERRL Neck no lymphadenopathy and supple General: trachea midline Lymph Lymphatic: no lymphadenopathy noted Resp normal respiratory effort Effort and Inspection: Negative for respiratory distress Cardio S1 normal heart sound and S2 normal heart sound Rhythm: abnormal rhythm irregularly irregular GI non-tender Inspection: abdominal distention Extremity normal capillary refill Skin General Skin Exam: no breakdown Neuro no focal motor deficits Coordination / Balance: [id number] test normal Speech: speech normal Motor Exam: general weakness Psych thought process normal, cooperative and affect normal Mood & Affect: depressed Results Lab / Micro Data Result Diagrams: 05/31/22 15:05 05/31/22 15:05 Labs: Laboratory Results - last 24 hr 05/31/22 15:05: WBC 16.9 H, RBC 4.59 L, Hgb 12.7 L, Hct 40.6, MCV 88.5, MCH 27.7, MCHC 31.3 L, RDW Std Deviation 52.1 H, RDW Coeff of Ezequiel 16.6 H, Plt Count 127 L, MPV 12.9 H, Immature Gran % (Auto) 1.100 H, Neut % (Auto) 85.0 H, Lymph % (Auto) 5.0 L, [place] % (Auto) 8.1, Eos % (Auto) 0.4, Baso % (Auto) 0.4, Absolute Neuts (auto) 14.3 H, Absolute Lymphs (auto) 0.85, Nucleated RBC % 0 05/31/22 15:05: PT Cancelled, INR Cancelled, APTT Cancelled 05/31/22 15:05: Sodium 134 L, Potassium 5.3 H, Chloride 103, Carbon Dioxide 25.0, Anion Gap 6, BUN 18, Creatinine 1.08, Estim Creat Clear Calc 67.79, Est GFR (MDRD) Af Amer 87, Est GFR (MDRD) Non-Af 72, BUN/Creatinine Ratio 16.7, Glucose 120 H, Calcium 8.7, Total Bilirubin 5.40 H, AST 105 H, ALT 62 H, Alkaline Phosphatase 726 H, Troponin I High Sens 9, Total Protein 7.3, Albumin 2.6 L, Globulin 4.7 H, Albumin/Globulin Ratio 0.6 L 05/31/22 15:56: PT Cancelled, INR Cancelled, APTT Cancelled 05/31/22 16:11: Urine Color Kasia, Urine Clarity Clear, Urine pH 5.0, Ur Specific [place] 1.020, Urine Protein 100 H, Urine Glucose (UA) Normal, Urine Ketones 5 H, Urine Occult Blood 150 H, Urine Nitrite Positive H, Urine Bilirubin 3 H, Urine Urobilinogen 12 H, Ur Leukocyte Esterase 25 H, Urine RBC 0-5 SEEN, Urine WBC 0 SEEN, Ur Squamous Epith Cells 0 SEEN, Urine Bacteria 0 SEEN, Hyaline Casts 0-5 SEEN, Urine Mucus 0 SEEN 05/31/22 16:40: PT 67.6 H, INR 8.1 H*, APTT 56.8 H 05/31/22 17:26: Troponin I High Sens 11 05/31/22 20:00: Ammonia 28.[address] 05/31/22 14:58 IMPRESSION: 1. No acute intracranial abnormality. There is remote right basal ganglia infarct. 2. Underlying senescent changes with small vessel ischemia. 3. Chronic appearing maxillary sinusitis. Electronically Signed: Timoteo Swartz MD at 16:31 EST , Chest X-Ray 05/31/22 15:35 IMPRESSION: No acute pulmonary abnormality. Electronically Signed: Timoteo Swartz MD at 16:32 EST , Abdomen/Pelvis CT 05/31/22 19:18 IMPRESSION: 1. Multiple low-density masses seen throughout the liver compatible with extensive metastatic disease. 2. Wall thickening of the mid sigmoid colon which may be due to incomplete distention or a possible mass. Further evaluation colonoscopy may be beneficial. 3. Consolidation in the right lower lobe compatible with atelectasis or pneumonia. 4. Stable right adrenal mass. There are also stable splenic calcifications present which likely represent granulomas. Electronically Signed: Timoteo Swartz MD at 20:07 EST , Assessment & Plan Assessment/Plan (1) DVT of lower extremity (deep venous thrombosis): (2) Coagulopathy: (3) Weakness of right lower extremity: (4) Atrial flutter: (5) Chronic diastolic heart failure: (6) Essential (primary) hypertension: (7) Hyperlipidemia: QUALIFIERS: Hyperlipidemia type: pure hypercholesterolemia Qualified Code(s): E78.00 - Pure hypercholesterolemia, unspecified; E78.0 - Pure hypercholesterolemia (8) History of CVA (cerebrovascular accident): (9) Liver metastases: PLAN: Plan 1. Metastatic liver disease new finding with possible colon mass?admit patient to progressive care unit make n.p.o., start IV fluid normal saline at a rate of 100 cc/h. Repeat CMP, INR in a.m. consult Dr. Neal. 2. DVT?patient is anticoagulated with supratherapeutic INR of 8. He reports having possibly had a filter previously in light of his new cancer diagnosis we will consider options and discussed with patient. Heparin was started in the ER. 3. UTI?Rocephin 1 g IV every 24 hours, repeat CBC in a.m. 4. Possible pneumonia on CT scan?we will cover with the above Rocephin and may need antibiotics at discharge 5. Hypertension?continue home medications 6. Atrial flutter?rate controlled and anticoagulated we will continue to monitor this Had lengthy discussion with patient regarding his diagnosis and that we did not have all the information yet to make a determination on his future course. Patient expressed wish that his could be present tomorrow morning at 10 AM so that he can update her personally with his news. We did not discuss end-of-life care at this time due to the patient being shocked by this news of cancer diagnosis. Therefore as of now he will remain full code until such time that we are able to have a conversation regarding this. Charges/Coding Visit Charges Inpatient E&M: 94130 Init Hosp L3
--- NOTE | 2022-05-31 21:52 | ED.RN ---
THIS RN CALLED DAVID MUNGUIA (PT'S ) AT [phone]. THIS RN TOLD DAVID THAT PT WAS MOVED TO [facility] ROOM 108.
[2022-05-31] MEDS: 0.9% Normal Saline 1,000 ML 100 ML IV (22:30)
[2022-05-31] MEDS: Ceftriaxone 1 GM/50 ML BAG IV (22:31)
[2022-06-01] VITALS (21 sets, daily range): BP systolic 103–132; BP diastolic 65–84; PULSE 89–109; RESP 12–18; TEMP 36.6–37.1; O2SAT 93–97; BMI 28.8
[2022-06-01 02:06] LABS: Absolute Lymphocyte Count 1.09 X10^3/uL (0.83-4.51); Absolute Neutrophil Count 13.6 X10^3/uL (2.0-7.7); Basophil# 0.06 X10^3/uL; Basophil% 0.4 % (0-1); Eosinophils% 2.9 % (0-5); Hematocrit 37.3 % (40-54); Hemoglobin 12.1 g/dL (13.0-16.5); Lymphocyte # 1.09 X10^3/ul (0.83-4.51); Lymphocyte % 6.4 % (19-41); Mean Corp Hgb Conc 32.4 g/dL (32-36); Mean Corpuscular Hgb 27.8 pg (27.0-32.0); Mean Corpuscular Volume 85.6 fL (80-94); Mean Platelet Vol. 13.1 fl (6.2-12.0); Monocyte# 1.59 X10^3/uL; Monocyte% 9.3 % (0-10); NRBC Flagged by Analyzer 0 % (0-5); Neutrophil # 13.63 X10^3/uL (2.7-7.7); POSITIVE DIFFERENTIAL YES; Platelet Count 124 K/mm3 (150-450); RBC Distribution Width CV 16.8 % (11.6-14.6); RBC Distribution Width SD 50.2 fl (35.1-43.9); Red Blood Count 4.36 M/mm3 (4.6-6.2)
[2022-06-01 02:08] LABS: Differential Indicated SCAN CRITERIA MET
[2022-06-01 02:20] LABS: Differential Comment SCANNED
[2022-06-01 02:24] LABS: ALB/GLOB Ratio 0.5 RATIO (0.9-2.4); AST(SGOT) 77 U/L (15-37); Alanine Aminotransfer ALT/SGPT 53 U/L (16-61); Albumin, Serum 2.2 g/dL (3.2-5.0); Alkaline Phosphatase 642 U/L (45-117); Anion Gap 6 (5-15); BUN 17 mg/dL (7-18); BUN/Creat Ratio 18.9 RATIO (10-20); Calcium,Total 8.3 mg/dL (8.5-10.1); Chloride 103 mmol/L (98-107); EST Glomerular Filtration Rate 89 mL/min (>60); Est Glom Filt Rate - Afr Amer 107 mL/min (>60); Estimated Creatinine Clearance 81.34 ml/min; Globulin 4.3 g/dL (2.2-4.2); Glucose 95 mg/dL (74-106); Potassium 4.5 mmol/L (3.5-5.1); Protein, Total 6.5 g/dL (6.4-8.2); Sodium Level 134 mmol/L (136-145)
[2022-06-01 03:55] LABS: International Normalized Ratio > 19.5; Partial Thromboplast Time > 200.0 Seconds (24.1-36.2); Prothrombin Time (Protime)PT. > 120.0 SECONDS (11.7-14.9)
[2022-06-01] MEDS: Phytonadione (Vit K1) 5 MG TABLET PO (07:41)
--- NOTE | 2022-06-01 08:38 | NURSING ---
called per patient request told room number. She states she will be here at 10
--- NOTE | 2022-06-01 10:26 | PN.HOSP_ITS ---
Subjective Subjective Follow-up on acute left leg PE/probable metastatic CA/supratherapeutic INR; Patient was seen and examined. He admits to feeling depressed with new diagnoses. He denied any chest pain or dizziness. He had episodes of bleeding per rectum as well as bleeding from his IV sites and bruises on the skin. Objective Data Objective Data Vital Signs: Vital Signs Temp Pulse Resp BP Pulse Ox O2 Del Method 98.2 F 98 16 103/65 97 Room Air 06/01/22 04:16 06/01/22 07:27 06/01/22 04:16 06/01/22 04:16 06/01/22 08:15 06/01/22 08:15 Oxygen Delivery Method Room Air Weight: 93.8 kg Body Mass Index (BMI) 28.8 Intake & Output: Intake and Output for Last 24 Hours 05/30/22 05/31/22 06/01/22 23:59 23:59 23:59 Intake Total 50 / 50 1135.25 / 1135.25 Balance 50 / 50 1135.25 / 1135.25 Lab / Micro Data Result Diagrams: 06/01/22 01:46 06/01/22 01:46 Labs: Laboratory Results - last 24 hr 05/31/22 15:05: WBC 16.9 H, RBC 4.59 L, Hgb 12.7 L, Hct 40.6, MCV 88.5, MCH 27.7, MCHC 31.3 L, RDW Std Deviation 52.1 H, RDW Coeff of [place]equ[place] 16.6 H, Plt Count 127 L, MPV 12.9 H, Immature Gran % (Auto) 1.100 H, Neut % (Auto) 85.0 H, Lymph % (Auto) 5.0 L, [place] % (Auto) 8.1, Eos % (Auto) 0.4, Baso % (Auto) 0.4, Absolute Neuts (auto) 14.3 H, Absolute Lymphs (auto) 0.85, Nucleated RBC % 0 05/31/22 15:05: PT Cancelled, INR Cancelled, APTT Cancelled 05/31/22 15:05: Sodium 134 L, Potassium 5.3 H, Chloride 103, Carbon Dioxide 25.0, Anion Gap 6, BUN 18, Creatinine 1.08, Estim Creat Clear Calc 67.79, Est GFR (MDRD) Af Amer 87, Est GFR (MDRD) Non-Af 72, BUN/Creatinine Ratio 16.7, Glucose 120 H, Calcium 8.7, Total Bilirubin 5.40 H, AST 105 H, ALT 62 H, Alkaline Phosphatase 726 H, Troponin I High Sens 9, Total Protein 7.3, Albumin 2.6 L, Globulin 4.7 H, Albumin/Globulin Ratio 0.6 L 05/31/22 15:56: PT Cancelled, INR Cancelled, APTT Cancelled 05/31/22 16:11: Urine Color Kasia, Urine Clarity Clear, Urine pH 5.0, Ur Specific [place] 1.020, Urine Protein 100 H, Urine Glucose (UA) Normal, Urine Ketones 5 H, Urine Occult Blood 150 H, Urine Nitrite Positive H, Urine Bilirubin 3 H, Urine Urobilinogen 12 H, Ur Leukocyte Esterase 25 H, Urine RBC 0-5 SEEN, Urine WBC 0 SEEN, Ur Squamous Epith Cells 0 SEEN, Urine Bacteria 0 SEEN, Hyaline Casts 0-5 SEEN, Urine Mucus 0 SEEN 05/31/22 16:40: PT 67.6 H, INR 8.1 H*, APTT 56.8 H 05/31/22 17:26: Troponin I High Sens 11 05/31/22 20:00: Ammonia 28.0 06/01/22 01:46: WBC 17.0 H, RBC 4.36 L, Hgb 12.1 L, Hct 37.3 L, MCV 85.6, MCH 27.8, MCHC 32.4, RDW Std Deviation 50.2 H, RDW Coeff of [place]equ[place] 16.8 H, Plt Count 124 L, MPV 13.1 H, Immature Gran % (Auto) 1.000 H, Neut % (Auto) 80.0 H, Lymph % (Auto) 6.4 L, [place] % (Auto) 9.3, Eos % (Auto) 2.9, Baso % (Auto) 0.4, Absolute Neuts (auto) 13.6 H, Absolute Lymphs (auto) 1.09, Nucleated RBC % 0, Differential Comment SCANNED, Diff Path Review November06/01/22 01:46: PT Cancelled, INR Cancelled 06/01/22 01:46: Sodium 134 L, Potassium 4.5, Chloride 103, Carbon Dioxide 25.0, Anion Gap 6, BUN 17, Creatinine 0.90, Estim Creat Clear Calc 81.34, Est GFR (MDRD) Af Amer 107, Est GFR (MDRD) Non-Af 89, BUN/Creatinine Ratio 18.9, Glucose 95, Calcium 8.3 L, Total Bilirubin 4.70 H, AST 77 H, ALT 53, Alkaline Phosphatase 642 H, Total Protein 6.5, Albumin 2.2 L, Globulin 4.3 H, Albumin/Globulin Ratio 0.5 L 06/01/22 01:46: APTT Cancelled 06/01/22 03:23: PT > 120.0 H, INR > 19.5 H*, APTT > 200.0 H* 06/01/22 08:47: Blood Type A POSITIVE Radiography Diagnostic Testing: Radiology Impression Brain CT 05/31/22 14:58 IMPRESSION: 1. No acute intracranial abnormality. There is remote right basal ganglia infarct. 2. Underlying senescent changes with small vessel ischemia. 3. Chronic appearing maxillary sinusitis. Electronically Signed: Timoteo Swartz MD at 16:31 EST , Chest X-Ray 05/31/22 15:35 IMPRESSION: No acute pulmonary abnormality. Electronically Signed: Timoteo Swartz MD at 16:32 EST Reading Location ID and State: [employer] / [place] Tel , Service support , Abdomen/Pelvis CT 05/31/22 19:18 IMPRESSION: 1. Multiple low-density masses seen throughout the liver compatible with extensive metastatic disease. 2. Wall thickening of the mid sigmoid colon which may be due to incomplete distention or a possible mass. Further evaluation colonoscopy may be beneficial. 3. Consolidation in the right lower lobe compatible with atelectasis or pneumonia. 4. Stable right adrenal mass. There are also stable splenic calcifications present which likely represent granulomas. Electronically Signed: Timoteo Swartz MD at 20:07 EST , Physical Exam Narrative Physical exam: General: Alert, Oriented x3, Cooperative, per and well, not on oxygen HEENT: Atraumatic Oral: Moist Mucosa Neck: Supple Lungs: Diminished to auscultation Cardiovascular: HS I+II, irregular, no murmurs Abdomen: Bowel Sounds Present, Soft, Non Tender Extremities: Left lower extremity is swollen, differential warmth present Skin: No rashes, No breakdown Neurological: Grossly intact Psych/Mental Status: Appropriate Assessment & Plan Assessment/Plan (1) Liver metastases: (2) DVT of lower extremity (deep venous thrombosis): PLAN: Plan 1. Supratherapeutic INR, INR 19.5, Coumadin on hold Status post oral vitamin K 5 mg x 1 as well as FFP's Repeat INR before FFP is 12 Will repeat INR in am 2. Acute left lower extremity DVT, present on admission Patient has history of IVC filter; INR currently supratherapeutic Vascular surgery consulted 3. Probable colon CA with mets to the liver CT abdomen/pelvis showed multiple low-density masses throughout the liver, mid sigmoid colon wall thickening GI consulted, patient going for colonoscopy with biopsies of sigmoid thickening/mass 4. Acute UTI, urine cultures pending Continue on IV ceftriaxone 5. Confusion, slurred speech, appears resolved. CT of the brain showed no acute intracranial abnormality. We will get MRI of the brain later 6. Chronic atrial flutter, rate controlled, 7. Hypertension, controlled now, continue to hold lisinopril We will resume metoprolol with holding parameters 8. Type II DM, home metformin on hold Continue to hold metformin, continue with insulin sliding scale blood glucose checks 9. DVT prophylaxis- INR supra-therapeutic Charges/Coding Visit Charges Inpatient E&M: 75983 Subs Hosp L3
--- NOTE | 2022-06-01 10:35 | CASEMGMT ---
RN [place] Face to Face with patient for initial transition planning/care coordination assessment. RN CM introduced self and role at [facility]. Patient lying in bed, alert and oriented, at bedside. Patient willing to participate in assessment and is able to answer all questions appropriately. Care providers, pharmacy, and demographics verified. Patient wishes to discharge home, denies need for home health at this time. Patient states he has no further needs or concerns at this time. CM to follow for discharge planning needs that may arise. 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 Patient states he is independent and able to ambulate stairs. Transportation: self, DME/HHC: Patient states he has shower chair, raised toilet, cane, walker, and grab bars. Patient has been to Rehab Unit previously. Patient has had [facility]HC in the past. Disposition Plan: Patient to discharge home with family support and follow-up plans in place Alida MORGAN, RN, CM
[2022-06-01 10:42] LABS: Prothrombin Time (Protime)PT. 92.6 SECONDS (11.7-14.9)
[2022-06-01 13:42] LABS: Pathologist Review Reviewed
[2022-06-01] MEDS: Bisacodyl 5 MG Tablet 20 MG PO (13:48)
--- NOTE | 2022-06-01 15:29 | PCM.CONS.GEN ---
Assessment & Plan Assessment/Plan (1) Liver metastases: PLAN: The leading diagnosis for metastasis to the liver in the setting of a noncirrhotic liver would be GI malignancy: Greater than pancreatic > gastric > esophageal. Also different diagnosis would be renal cell carcinoma, melanoma, lymphoma. He does have an abnormal thickening in the sigmoid colon. He will need to undergo a colonoscopy and if that is negative then he will need to go on upper endoscopy and likely liver biopsy. He was explained alternatives, risk, benefits include not withstanding bleeding, infection, sepsis, perforation, need for emergency to . He will have an ASA of 3. HPI Consult Data Date of Consult: 06/01/22 HPI Narrative Reason for Consultation: Abnormal CT scan HPI Narrative: GLENNA MUNGUIA, is a 71 M who presents with an irregular heartbeat for the past 2 weeks.? Patient also admits to some generalized weakness.? Patient states that he was trying to go up some steps and his right leg became weak.? Patient has a history of atrial fibrillation and saw Dr. Ross for that.? Patient states that he gave him some medication and thought he would go out of it.? He has been on Coumadin for his atrial fibrillation.? Patient admits to some left leg swelling.? Patient admits to some intermittent chest pain.? Patient states it is brief.? Patient states it is sharp.? Patient states nothing makes it better and nothing makes it worse. He will underwent an ultrasound of his lower extremities and was discovered to have an acute DVT. Because of elevated liver function test and liver enzymes and ultrasound was ordered of the right upper quadrant and it showed multiple lesions in the liver possibly secondary to metastatic disease. He underwent a CT scan abdomen pelvis which had showed multiple lesions in his liver and some thickening in the sigmoid colon possibly secondary to underlying malignancy. 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 Diminished pulses in lower extremity Essential (primary) hypertension Hernia History of CVA (cerebrovascular accident) Hyperlipidemia Obesity Paroxysmal atrial fibrillation Type 2 diabetes mellitus Home Medications HANDICAP PLACARD #1 ea 01/06/19 [Rx Last Taken Unknown] furosemide 40 mg tablet 40 mg PO DAILY Swelling #90 tabs 11/27/20 [Rx Last Taken 1 Month Ago ~04/30/22] atorvastatin 80 mg tablet 80 mg PO QHS #90 tabs 02/04/22 [Rx Last Taken 05/30/22] lisinopril 5 mg tablet 5 mg PO DAILY #90 tabs 02/04/22 [Rx Last Taken Unknown] metformin 500 mg tablet,extended release 24 hr 500 mg PO DAILY courtesy fill as pt is almost out 90 days #90 tabs 02/04/22 [Rx Last Taken 05/30/22] metoprolol tartrate 25 mg tablet 25 mg PO BID #180 tabs 04/01/22 [Rx Last Taken Unknown] warfarin 1 mg tablet 0.5 mg PO MOTUWETHFR 05/31/22 [History Last Taken 05/28/22] warfarin 1 mg tablet 1 mg PO SUSA 05/31/22 [History Last Taken Unknown] Allergy/AdvReac Type Severity Reaction Status Date / Time No Known Allergies Allergy Verified 05/31/22 14:18 Family History Father CAD (coronary artery disease) Mother Cancer Surgical History H/O coronary artery bypass surgery (11/22/13) History of cardioversion (09/2014) History of hernia repair History of radiofrequency ablation procedure for cardiac arrhythmia (11/2013) 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 Social History Smoking Status: Never smoker alcohol intake: never substance use type: does not use caffeine: Yes (occasional) Type: coffee what type of physical activity do you participate in: walking frequency: daily seatbelt use: always do you feel safe at home: Yes ROS Constitutional Constitutional: Reports weakness; Denies change in weight Eyes Eyes: Denies blurry vision ENT HEENT: Denies abnormal hearing Cardiovascular Cardiovascular: Denies chest pain Respiratory/Chest Respiratory/Chest: Denies cough Gastrointestinal Gastrointestinal: Denies abdominal pain Genitourinary Genitourinary: Reports dysuria and hematuria Musculoskeletal Musculoskeletal: Reports muscle weakness Integumentary Integumentary: Denies dry skin Neurologic Neurologic: Denies abnormal gait or abnormal speech Psychiatric Psychiatric: Denies anxiety Physical Exam Narrative Physical exam: General: Alert, Oriented x3, Cooperative, per and well, not on oxygen HEENT: Atraumatic Oral: Moist Mucosa Neck: Supple Lungs: Diminished to auscultation Cardiovascular: HS I+II, irregular, no murmurs Abdomen: Bowel Sounds Present, Soft, Non Tender Extremities: Left lower extremity is swollen, differential warmth present Skin: No rashes, No breakdown Neurological: Grossly intact Psych/Mental Status: Appropriate Lab / Micro Data Result Diagrams: 06/01/22 01:46 06/01/22 01:46 Labs: Laboratory Results - last 24 hr 05/31/22 15:05: PT Cancelled, INR Cancelled, APTT Cancelled 05/31/22 15:05: Sodium 134 L, Potassium 5.3 H, Chloride 103, Carbon Dioxide 25.0, Anion Gap 6, BUN 18, Creatinine 1.08, Estim Creat Clear Calc 67.79, Est GFR (MDRD) Af Amer 87, Est GFR (MDRD) Non-Af 72, BUN/Creatinine Ratio 16.7, Glucose 120 H, Calcium 8.7, Total Bilirubin 5.40 H, AST 105 H, ALT 62 H, Alkaline Phosphatase 726 H, Troponin I High Sens 9, Total Protein 7.3, Albumin 2.6 L, Globulin 4.7 H, Albumin/Globulin Ratio 0.6 L 05/31/22 15:56: PT Cancelled, INR Cancelled, APTT Cancelled 05/31/22 16:11: Urine Color Kasia, Urine Clarity Clear, Urine pH 5.0, Ur Specific [place] 1.020, Urine Protein 100 H, Urine Glucose (UA) Normal, Urine Ketones 5 H, Urine Occult Blood 150 H, Urine Nitrite Positive H, Urine Bilirubin 3 H, Urine Urobilinogen 12 H, Ur Leukocyte Esterase 25 H, Urine RBC 0-5 SEEN, Urine WBC 0 SEEN, Ur Squamous Epith Cells 0 SEEN, Urine Bacteria 0 SEEN, Hyaline Casts 0-5 SEEN, Urine Mucus 0 SEEN 05/31/22 16:40: PT 67.6 H, INR 8.1 H*, APTT 56.8 H 05/31/22 17:26: Troponin I High Sens 11 05/31/22 20:00: Ammonia 28.0 06/01/22 01:46: WBC 17.0 H, RBC 4.36 L, Hgb 12.1 L, Hct 37.3 L, MCV 85.6, MCH 27.8, MCHC 32.4, RDW Std Deviation 50.2 H, RDW Coeff of Ezequiel 16.8 H, Plt Count 124 L, MPV 13.1 H, Immature Gran % (Auto) 1.000 H, Neut % (Auto) 80.0 H, Lymph % (Auto) 6.4 L, [place] % (Auto) 9.3, Eos % (Auto) 2.9, Baso % (Auto) 0.4, Absolute Neuts (auto) 13.6 H, Absolute Lymphs (auto) 1.09, Nucleated RBC % 0, Differential Comment SCANNED, Diff Path Review Reviewed 06/01/22 01:46: PT Cancelled, INR Cancelled 06/01/22 01:46: Sodium 134 L, Potassium 4.5, Chloride 103, Carbon Dioxide 25.0, Anion Gap 6, BUN 17, Creatinine 0.90, Estim Creat Clear Calc 81.34, Est GFR (MDRD) Af Amer 107, Est GFR (MDRD) Non-Af 89, BUN/Creatinine Ratio 18.9, Glucose 95, Calcium 8.3 L, Total Bilirubin 4.70 H, AST 77 H, ALT 53, Alkaline Phosphatase 642 H, Total Protein 6.5, Albumin 2.2 L, Globulin 4.3 H, Albumin/Globulin Ratio 0.5 L 06/01/22 01:46: APTT Cancelled 06/01/22 03:23: PT > 120.0 H, INR > 19.5 H*, APTT > 200.0 H* 06/01/22 08:47: Blood Type A POSITIVE 06/01/22 10:15: PT 92.6 H, INR 12.0 H* Micro: Microbiology 05/31/22 16:11 Urine, Clean Catch Urine Culture - Preliminary Radiology Impression Brain CT 05/31/22 14:58 IMPRESSION: 1. No acute intracranial abnormality. There is remote right basal ganglia infarct. 2. Underlying senescent changes with small vessel ischemia. 3. Chronic appearing maxillary sinusitis. Electronically Signed: Timoteo Swartz MD at 16:31 EST , Chest X-Ray 05/31/22 15:35 IMPRESSION: No acute pulmonary abnormality. Electronically Signed: Timoteo Swartz MD at 16:32 EST , Abdomen/Pelvis CT 05/31/22 19:18 IMPRESSION: 1. Multiple low-density masses seen throughout the liver compatible with extensive metastatic disease. 2. Wall thickening of the mid sigmoid colon which may be due to incomplete distention or a possible mass. Further evaluation colonoscopy may be beneficial. 3. Consolidation in the right lower lobe compatible with atelectasis or pneumonia. 4. Stable right adrenal mass. There are also stable splenic calcifications present which likely represent granulomas. Electronically Signed: Timoteo Swartz MD at 20:07 EST , Charges/Coding Visit Charges Inpatient E&M: 56389 Init Hosp L2
--- NOTE | 2022-06-01 16:46 | EX.PCM.CON.S ---
Assessment & Plan Assessment/Plan (1) DVT of lower extremity (deep venous thrombosis): PLAN: -CT images reviewed, extensive liver lesions suspicious for metastases, sigmoid thickening -has IVC filter in place, so protected from embolic events -though DVT extent typically would benefit from thrombectomy, given likely new oncologic situation with metastatic disease would not pursue; also edema already improved -had blood with BM overnight; agree with holding heparin, reversing coumadin -will follow, but unlikely to intervene HPI Consult Data Date of Consult: 06/01/22 HPI Narrative HPI Narrative: GLENNA MUNGUIA, is a 71 M who presents with increased left leg edema. Has chronic edema, but was worse over last several days. Has prior DVT of some kind that occurred around time of stroke/a.fib/CA/open heart surgery. Had an IVC filter placed at the time, also atrial clip placed. He has long standing brown discoloration of LLE. No compression. Edema improved since admission. He is on coumadin for a.fib, recent outpatient INR 4; in ED yesterday 8, today 16. Not feeling well overall for several days, non-specific. CT A/P in ED revealed multiple liver lesions, new since 2017, and sigmoid thickening. Also demonstrated IVC filter in appropriate position. Duplex revealed DVT external iliac/common femoral/femoral/popliteal. 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 Diminished pulses in lower extremity Essential (primary) hypertension Hernia History of CVA (cerebrovascular accident) Hyperlipidemia Obesity Paroxysmal atrial fibrillation Type 2 diabetes mellitus Home Medications HANDICAP PLACARD #1 ea 01/06/19 [Rx Last Taken Unknown] furosemide 40 mg tablet 40 mg PO DAILY Swelling #90 tabs 11/27/20 [Rx Last Taken 1 Month Ago ~04/30/22] atorvastatin 80 mg tablet 80 mg PO QHS #90 tabs 02/04/22 [Rx Last Taken 05/30/22] lisinopril 5 mg tablet 5 mg PO DAILY #90 tabs 02/04/22 [Rx Last Taken Unknown] metformin 500 mg tablet,extended release 24 hr 500 mg PO DAILY courtesy fill as pt is almost out 90 days #90 tabs 02/04/22 [Rx Last Taken 05/30/22] metoprolol tartrate 25 mg tablet 25 mg PO BID #180 tabs 04/01/22 [Rx Last Taken Unknown] warfarin 1 mg tablet 0.5 mg PO MOTUWETHFR 05/31/22 [History Last Taken 05/28/22] warfarin 1 mg tablet 1 mg PO SUSA 05/31/22 [History Last Taken Unknown] Allergy/AdvReac Type Severity Reaction Status Date / Time No Known Allergies Allergy Verified 05/31/22 14:18 Family History Father CAD (coronary artery disease) Mother Cancer Surgical History H/O coronary artery bypass surgery (11/22/13) History of cardioversion (09/2014) History of hernia repair History of radiofrequency ablation procedure for cardiac arrhythmia (11/2013) 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 Social History Smoking Status: Never smoker alcohol intake: never substance use type: does not use caffeine: Yes (occasional) Type: coffee what type of physical activity do you participate in: walking frequency: daily seatbelt use: always do you feel safe at home: Yes Physical Exam Const alert, oriented x3, no apparent distress and healthy appearing General Appearance: cooperative; Negative for combative or lethargic Orientation / Consciousness: awake Exam Limitations: no limitations HEENT Head and Scalp: normocephalic and atraumatic Eyes EOMs intact bilaterally General Eye: normal appearance of both eyes Neck full ROM General: trachea midline Lymph Lymphatic: Negative for no lymphadenopathy noted Resp normal respiratory effort and no use of accessory muscles Effort and Inspection: Negative for labored, stridor or audible wheezes Cardio regular rate and regular rhythm GI non-tender and non-distended; Negative for hepatosplenomegaly Back/Spine Cervical Spine: cervical ROM normal Extremity full ROM and normal capillary refill Extremity Narrative: +edema LLE +hemosiderin deposit changes Skin no rashes or lesions noted and no wounds Neuro oriented x3, CN's II-XII intact bilaterally, no focal motor deficits and no sensory deficits noted Psych thought process normal, cooperative, affect normal, speech normal and activity/motor behavior normal Lab / Micro Data Result Diagrams: 06/01/22 01:46 06/01/22 01:46 Labs: Laboratory Results - last 24 hr 05/31/22 16:40: PT 67.6 H, INR 8.1 H*, APTT 56.8 H 05/31/22 17:26: Troponin I High Sens 11 05/31/22 20:00: Ammonia 28.0 06/01/22 01:46: WBC 17.0 H, RBC 4.36 L, Hgb 12.1 L, Hct 37.3 L, MCV 85.6, MCH 27.8, MCHC 32.4, RDW Std Deviation 50.2 H, RDW Coeff of Ezequiel 16.8 H, Plt Count 124 L, MPV 13.1 H, Immature Gran % (Auto) 1.000 H, Neut % (Auto) 80.0 H, Lymph % (Auto) 6.4 L, [place] % (Auto) 9.3, Eos % (Auto) 2.9, Baso % (Auto) 0.4, Absolute Neuts (auto) 13.6 H, Absolute Lymphs (auto) 1.09, Nucleated RBC % 0, Differential Comment SCANNED, Diff Path Review Reviewed 06/01/22 01:46: PT Cancelled, INR Cancelled 06/01/22 01:46: Sodium 134 L, Potassium 4.5, Chloride 103, Carbon Dioxide 25.0, Anion Gap 6, BUN 17, Creatinine 0.90, Estim Creat Clear Calc 81.34, Est GFR (MDRD) Af Amer 107, Est GFR (MDRD) Non-Af 89, BUN/Creatinine Ratio 18.9, Glucose 95, Calcium 8.3 L, Total Bilirubin 4.70 H, AST 77 H, ALT 53, Alkaline Phosphatase 642 H, Total Protein 6.5, Albumin 2.2 L, Globulin 4.3 H, Albumin/Globulin Ratio 0.5 L 06/01/22 01:46: APTT Cancelled 06/01/22 03:23: PT > 120.0 H, INR > 19.5 H*, APTT > 200.0 H* 06/01/22 08:47: Blood Type A POSITIVE 06/01/22 10:15: PT 92.6 H, INR 12.0 H* Micro: Microbiology 05/31/22 16:11 Urine, Clean Catch Urine Culture - Preliminary Radiology Impression Abdomen/Pelvis CT 05/31/22 19:18 IMPRESSION: 1. Multiple low-density masses seen throughout the liver compatible with extensive metastatic disease. 2. Wall thickening of the mid sigmoid colon which may be due to incomplete distention or a possible mass. Further evaluation colonoscopy may be beneficial. 3. Consolidation in the right lower lobe compatible with atelectasis or pneumonia. 4. Stable right adrenal mass. There are also stable splenic calcifications present which likely represent granulomas. Electronically Signed: Timoteo Swartz MD at 20:07 EST , Charges/Coding Visit Charges Inpatient E&M: 38890 Init Hosp L2
[2022-06-01 17:25] LABS: Bedside Glucose 130 mg/dL (74-106)
[2022-06-01] MEDS: Electrolyte Solution/Peg's 4000 ML PO (19:38)
[2022-06-01] MEDS: Ceftriaxone 1 GM/50 ML BAG IV (21:41)
[2022-06-01] MEDS: Atorvastatin Calcium 80 MG Tablet PO (21:43)
[2022-06-01] MEDS: Metoprolol Tartrate 25 MG Tablet PO (21:43)
[2022-06-01 22:25] LABS: Bedside Glucose 131 mg/dL (74-106)
[2022-06-02] VITALS (17 sets, daily range): BP systolic 111–138; BP diastolic 65–89; PULSE 84–102; RESP 16–20; TEMP 35.6–37.3; O2SAT 92–99; BMI 28.8
--- NOTE | 2022-06-02 | IMM_PTH ---
PATIENT: GLENNA MUNGUIA LOC: [facility] U#:[id number] AGE/SX: 71/M ROOM: [facility] RE05/31/[address]: Dr. Ambar Pepe MD : 1950 BED: 1 DIS: 06/04/2022 SPEC #: [id number] RECD: 06/04/22 11:26 STATUS: ORALIA REQ #: [id number] ALEC: 06/02/22 00:[address]: Raza Neal DEPT: IMMUNOHISTOCHEMISTRY RECD BY: Stefanie Solorio ENTERED: 06/04/22 11:28 SP TYPE: IMMUNO OTHR DR: MD Dr. Mariano Blue MD Dr. Eric Turney, MD Dr. Joseph Prah, MD Dr. Juan Miguel Proano, MD Dr. Michael Bortz, MD Dr. Mansour Isckarus, MD Dr. Paul Nielsen, MD Dr. Robert Field, MD Dr. Ryan Jin, MD Dr. Roger Macklis, MD Dr. Steve Walston, DO Tyra Schlabach, BLOCK OUT MACHINE OPERATOR-C Tissues: COLON BIOPSY Procedures: MSH2 (add) MLH-1 (add) MSH6 (add) Anti-PMS2 (add) RIVERA-2 (add) KI-67 (add) P53 (add) HER-2-BRODERICK (initial) PHYSICIAN [facility] INSTIT[facility] [address] [address] SPECIMEN INFORMATION: Tissue Source: Colonic mass biopsy Clinical Info: Liver metastases Specimen Number: [id number] CPT code: 88195, 39509 x7 METHODOLOGY: Deparaffinized sections of prefer/formalin-fixed tissue or PAP/DQ stained slides are incubated with monoclonal/polyclonal antibodies/oligonucleotide probes. Localization is made via biotin free immunoperoxidase method. Appropriate controls are performed and reacted as expected. Results on target cell population are indicated in the following table: RESULTS: ANTIBODY / CLONE RESULT Her-2neu (CB11) negative (0) RIVERA-2 (SP21) positive MLH-1 (M1) positive MSH2 (25D12) positive MSH6 (44) positive PMS2 (YCP6862) positive Ki-67 (30-9) positive, high P53 (DO-7) positive, mutated These tests were developed and their performance characteristics determined by [facility]. They may not have been cleared or approved by the U.S. Food and Drug Administration. The FDA has determined that such clearance or approval is not necessary. The above immunohistochemical/dualISH markers are ordered and reviewed by the Pathologist. INTERPRETATION: Colonic mass, biopsy: Invasive adeno carcinoma Invasive adenocarcinoma. Result of Microsatellite Instability Study: Negative (no loss of mismatch protein; no microsatellite instability detected). SJ:declan 06/07/22
--- NOTE | 2022-06-02 06:12 | NURSING ---
automation technologist reviewed charting and agree
[2022-06-02 06:51] LABS: Absolute Lymphocyte Count 0.84 X10^3/uL (0.83-4.51); Absolute Neutrophil Count 12.6 X10^3/uL (2.0-7.7); Basophil# 0.03 X10^3/uL; Basophil% 0.2 % (0-1); Differential Indicated SCAN CRITERIA MET; Eosinophil# 0.01 X10^3/uL; Eosinophils% 0.1 % (0-5); Hematocrit 34.5 % (40-54); Hemoglobin 11.2 g/dL (13.0-16.5); Lymphocyte # 0.84 X10^3/ul (0.83-4.51); Lymphocyte % 5.6 % (19-41); Mean Corp Hgb Conc 32.5 g/dL (32-36); Mean Corpuscular Hgb 27.8 pg (27.0-32.0); Mean Corpuscular Volume 85.6 fL (80-94); Mean Platelet Vol. 13.3 fl (6.2-12.0); Monocyte# 1.45 X10^3/uL; Monocyte% 9.6 % (0-10); NRBC Flagged by Analyzer 0 % (0-5); Neutrophil # 12.59 X10^3/uL (2.7-7.7); Neutrophil % 83.6 % (47-70); POSITIVE COUNT YES; Platelet Count 97 K/mm3 (150-450); RBC Distribution Width CV 16.9 % (11.6-14.6); RBC Distribution Width SD 50.5 fl (35.1-43.9); Red Blood Count 4.03 M/mm3 (4.6-6.2); White Blood Count 15.1 K/mm3 (4.4-11.0)
[2022-06-02 06:56] LABS: International Normalized Ratio 3.4; Prothrombin Time (Protime)PT. 33.8 SECONDS (11.7-14.9)
[2022-06-02 07:00] LABS: Bedside Glucose 149 mg/dL (74-106)
[2022-06-02 07:11] LABS: Differential Comment SCANNED; Platelet Estimate SLT DEC (ADEQ)
[2022-06-02 07:16] LABS: ALB/GLOB Ratio 0.5 RATIO (0.9-2.4); AST(SGOT) 103 U/L (15-37); Alanine Aminotransfer ALT/SGPT 56 U/L (16-61); Albumin, Serum 2.1 g/dL (3.2-5.0); Alkaline Phosphatase 596 U/L (45-117); Anion Gap 7 (5-15); BUN 15 mg/dL (7-18); BUN/Creat Ratio 15.3 RATIO (10-20); Calcium,Total 7.9 mg/dL (8.5-10.1); Chloride 104 mmol/L (98-107); Creatinine, Serum 0.98 mg/dL (0.70-1.30); EST Glomerular Filtration Rate 80 mL/min (>60); Est Glom Filt Rate - Afr Amer 97 mL/min (>60); Glucose 124 mg/dL (74-106); Potassium 3.9 mmol/L (3.5-5.1); Protein, Total 6.1 g/dL (6.4-8.2); Sodium Level 136 mmol/L (136-145)
[2022-06-02] MEDS: Furosemide 40 MG Tablet PO (07:49)
[2022-06-02] MEDS: Metoprolol Tartrate 25 MG Tablet PO ×2 (07:49→21:36)
--- NOTE | 2022-06-02 11:30 | COLBX_PTH ---
PATIENT: GLENNA MUNGUIA LOC: [facility] U#:[id number] AGE/SX: 71/M ROOM: [facility] RE05/31/[address]: Dr. Ambar Pepe MD : 1950 BED: 1 DIS: 06/04/2022 SPEC #: [id number] RECD: 06/02/22 13:17 STATUS: ORALIA REQ #: [id number] ALEC: 06/02/22 11:[address]: Raza Neal DEPT: SURGICAL PATHOLOGY RECD BY: Kaley Parra ENTERED: 06/03/22 09:41 SP TYPE: COLON BX OTHR DR: MD Dr. Mariano Blue MD Dr. Eric Turney, MD Dr. Joseph Prah, MD Dr. Michael Bortz, MD Dr. Mansour Isckarus, MD Dr. Paul Nielsen, MD Dr. Robert Field, MD Dr. Ryan Jin, MD Dr. Roger Macklis, MD Dr. Steve Walston, DO Tyra Schlabach, NP-C Tissues: COLON BIOPSY Procedures: Surgery Specimen Level IV Comments: @ Ordering doctor for SUIV edited from to @ by VIRGILIO at 06/03/22 1433 @ Submitting doctor edited from to @ by VIRGILIO at 06/03/22 1433 HEADER OPERATION: Colonoscopy (MAC) PRE-OP DIAGNOSIS: Liver metastases TISSUE SUBMITTED: Colonic mass biopsy MICROSCOPIC DIAGNOSIS Colon mass, biopsy: Poorly differentiated invasive adenocarcinoma. See comment. SJ:bonita 06/04/2022 COMMENT Immunohistochemistry ([id number]) for microsatellite instability (mismatch repair of protein) will be performed and the results will be reported separately. MICROSCOPIC DESCRIPTION Slides are reviewed. GROSS DESCRIPTION Received in fixative is one container labeled with the patient's name and designated colonic mass biopsy. The specimen consists of multiple irregular fragments of light [place]anta soft tissue that in aggregate measure 1.5 x 0.5 x 0.1 cm. The specimen is totally submitted in one cassette. / MARJORIE:bonita 06/03/2022 TC:0 CPT: 61132
--- NOTE | 2022-06-02 12:14 | OP.COLON_ITS ---
Patient Name: Tuan Arshad Procedure Date: 06/02/2022 11:34 AM Date of : 1950 Age: 71 Procedure: Colonoscopy Indications: Hematochezia Providers: Raza Neal DO Medicines: Monitored Anesthesia Care Patient Profile: This is a 71 year old male. Refer to note in patient chart for documentation of history and physical. Last Colonoscopy: none. The patient's first colonoscopy is today. Complications: No immediate complications. Procedure: Pre-Anesthesia Assessment: - Prior to the procedure, a History and Physical was performed, and patient medications and allergies were reviewed. The risks and benefits of the procedure and the sedation options and risks were discussed with the patient. All questions were answered and informed consent was obtained. Patient identification and proposed procedure were verified by the physician. Mental Status Examination: normal. Respiratory Examination: clear to auscultation. CV Examination: normal. Prophylactic Antibiotics: The patient does not require prophylactic antibiotics. Prior Anticoagulants: The patient has taken no previous anticoagulant or antiplatelet agents. After reviewing the risks and benefits, the patient was deemed in satisfactory condition to undergo the procedure. The anesthesia plan was to use monitored anesthesia care (MAC). Immediately prior to administration of medications, the patient was re-assessed for adequacy to receive sedatives. The heart rate, respiratory rate, oxygen saturations, blood pressure, adequacy of pulmonary ventilation, and response to care were monitored throughout the procedure. The physical status of the patient was re-assessed after the procedure. After I obtained informed consent, the scope was passed under direct vision. Throughout the procedure, the patient's blood pressure, pulse, and oxygen saturations were monitored continuously. The Colonoscope was introduced through the anus and advanced to the sigmoid colon. The colonoscopy was extremely difficult due to a partially obstructing mass. The patient tolerated the procedure well. The quality of the bowel preparation was unsatisfactory. Scope In: 11:47:08 AM Scope Out: 12:06:21 PM Total Procedure Duration Time 0 hours 19 minutes 13 seconds Findings: The perianal and digital rectal examinations were normal. An ulcerated completely obstructing large mass was found in the recto-sigmoid colon. The mass was circumferential. Oozing was present. This was biopsied with a cold forceps for histology. Verification of patient identification for the specimen was done. Estimated blood loss was minimal. Impression: - Preparation of the colon was unsatisfactory. - Malignant completely obstructing tumor in the recto-sigmoid colon. Biopsied. Recommendation: - [facility] patient [facility]. - Clear liquid diet. - Continue present medications. - Await pathology results. - No recommendation at this time regarding repeat colonoscopy. - Surgical consultation for a diverting colostomy versus colonic stent as patient is almost completely obstructed. Procedure Code(s): --- Professional --- 74432, 52, Colonoscopy, flexible; with biopsy, single or multiple CPT copyright 2017 [employer]. All rights reserved. The codes documented in this report are preliminary and upon product ambassador review may be revised to meet current compliance requirements. Raza Neal DO 06/02/2022 12:14:01 PM This report has been signed electronically. Number of Addenda: 0 Note Initiated On: 06/02/2022 11:34 AM
--- NOTE | 2022-06-02 12:15 | OP.CCLET_ITS ---
06/02/2022 Shahriar Haynes MD [address] [id number] Re : Colonoscopy procedure for Tuan Jeancarlos Dear Dr. Haynes This procedure was performed on Thursday, June 02, 2022. My impressions and recommendations are as follows: Impressions : - Preparation of the colon was unsatisfactory. - Malignant completely obstructing tumor in the recto-sigmoid colon. Biopsied. Recommendations : - Return patient to [facility] care. - Clear liquid diet. - Continue present medications. - Await pathology results. - No recommendation at this time regarding repeat colonoscopy. - Surgical consultation for a diverting colostomy versus colonic stent as patient is almost completely obstructed. My findings are described in the full procedure note, which is enclosed. If I can be of further assistance, please feel free to contact me at . Sincerely, Raza Neal, 06/02/2022 12:14:01 PM This report has been signed electronically.
--- NOTE | 2022-06-02 14:27 | PCM.PN.HOSP ---
Subjective Subjective Follow-up on acute left leg PE/probable metastatic CA/supratherapeutic INR; Patient was seen and examined. He had a colonoscopy today that showed an ulcerated, completely obstructing large mass at the rectosigmoid colon. He denied any abdominal pain, nausea or vomiting. Objective Data Objective Data Vital Signs: Vital Signs Temp Pulse Resp BP Pulse Ox O2 Del Method O2 Flow Rate 97.7 F L 95 20 H 138/65 H 99 Room Air 2 06/02/22 13:55 06/02/22 13:55 06/02/22 13:55 06/02/22 13:55 06/02/22 13:55 06/02/22 14:12 06/02/22 12:30 Oxygen Flow Rate (L/min) 2 Oxygen Delivery Method Room Air Weight: 93.8 kg Body Mass Index (BMI) 28.8 Intake & Output: Intake and Output for Last 24 Hours 05/31/22 06/01/22 06/02/22 23:59 23:59 23:59 Intake Total 50 / 50 1955.50 / 1955.50 Output Total 200 / 200 Balance 50 / 50 1955.50 / 1955.50 -200 / -200 Lab / Micro Data Result Diagrams: 06/02/22 06:30 06/02/22 06:30 Labs: Laboratory Results - last 24 hr 06/01/22 16:36: POC Glucose 130 H 06/01/22 21:51: POC Glucose 131 H 06/02/22 06:30: WBC 15.1 H, RBC 4.03 L, Hgb 11.2 L, Hct 34.5 L, MCV 85.6, MCH 27.8, MCHC 32.5, RDW Std Deviation 50.5 H, RDW Coeff of Ezequiel 16.9 H, Plt Count 97 L, MPV 13.3 H, Immature Gran % (Auto) 0.900, Neut % (Auto) 83.6 H, Lymph % (Auto) 5.6 L, [place] % (Auto) 9.6, Eos % (Auto) 0.1, Baso % (Auto) 0.2, Absolute Neuts (auto) 12.6 H, Absolute Lymphs (auto) 0.84, Nucleated RBC % 0, Differential Comment SCANNED, Platelet Estimate SLT 06/02/22 06:30: PT 33.8 H, INR 3.4 06/02/22 06:30: Sodium 136, Potassium 3.9, Chloride 104, Carbon Dioxide 25.0, Anion Gap 7, BUN 15, Creatinine 0.98, Estim Creat Clear Calc 74.70, Est GFR (MDRD) Af Amer 97, Est GFR (MDRD) Non-Af 80, BUN/Creatinine Ratio 15.3, Glucose 124 H, Calcium 7.9 L, Total Bilirubin 5.30 H, AST 103 H, ALT 56, Alkaline Phosphatase 596 H, Total Protein 6.1 L, Albumin 2.1 L, Globulin 4.0, Albumin/Globulin Ratio 0.5 L 06/02/22 06:35: POC Glucose 149 H Micro: Microbiology 05/31/22 16:11 Urine, Clean Catch Urine Culture - Preliminary Culture exhibits no growth. Radiography Diagnostic Testing: Radiology Impression Venous Doppler Study 05/31/22 14:58 Interpretation Summary Acute deep vein thrombosis is noted in the left external iliac vein, left common femoral vein, left femoral vein, left popliteal vein, left tibio-peroneal trunk vein, left gastrocnemius vein, left posterior tibial vein, left peroneal vein, left soleal vein. Left great saphenous vein absent Ordering Physician: Michael Bland Referring Physician: Shahriar Haynes Performed By: Alida Mccabe Loyd Physical Exam Narrative Physical exam: General: Alert, Oriented x3, Cooperative, per and well, not on oxygen HEENT: Atraumatic Oral: Moist Mucosa Neck: Supple Lungs: Diminished to auscultation Cardiovascular: HS I+II, irregular, no murmurs Abdomen: Bowel Sounds Present, Soft, Non Tender Extremities: Left lower extremity swelling is improved Skin: No rashes, No breakdown Neurological: Grossly intact Psych/Mental Status: Appropriate Assessment & Plan Assessment/Plan (1) Liver metastases: (2) DVT of lower extremity (deep venous thrombosis): PLAN: Plan 1. Supratherapeutic INR, improved, INR is 3.4 s/p PO vitamin K and 2 units FFPs Will trend in a.m. 2. Acute left lower extremity DVT, present on admission Patient has history of IVC filter; will continue off anticoagulation 3. Colon CA with mets to the liver, status post colonoscopy today 06/02/2022 which showed circumferential large nearly obstructing rectosigmoid mass. CT abdomen/pelvis showed multiple low-density masses throughout the liver, mid sigmoid colon wall thickening GI and general surgery following 4. Acute UTI, urine cultures showed no growth Will continue IV ceftriaxone aim for 5 days total 5. Confusion, slurred speech, appears resolved. CT of the brain showed no acute intracranial abnormality. Obtain MRI of the brain to assist also with staging 6. Chronic atrial flutter, rate controlled, 7. Hypertension, controlled now, continue to hold lisinopril Continue metoprolol 8. Type II DM, home metformin on hold Continue to hold metformin, continue with insulin sliding scale blood glucose checks 9. DVT prophylaxis- INR supra-therapeutic Charges/Coding Visit Charges Inpatient E&M: 16263 Subs Hosp L3
--- NOTE | 2022-06-02 16:42 | CON.PCM.SX_ITS ---
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 He initially presented for an outpatient evaluation, but was referred for emergency room investigation as some neurologic symptoms. Initial CT of head was unremarkable for ischemic insult and there was also no evidence of intracranial mass/mass-effect. Additionally, on intake patient demonstrated supratherapeutic INR, but also new left lower extremity iliofemoral DVT. He has a IVC filter in place from a prior hospitalization so there are no plans for further intervention from a recent vascular surgery consultation. Patient is diagnosed with paroxysmal atrial fibrillation and is seen by Dr. Solis for this issue. After listening patient's history, it it does not appear that he is clinically o bstructed?but his colon mass was found to be impassable with GIs colonoscopy today. Therefore, with patient's probable diagnosis of stage IV colon cancer (metastatic to the liver) he requires either a primary resection or diversion to ensure ongoing GI continuity. Since patient is not reporting obstructive symptoms, I would like to plan to continue a clear liquid diet and begin a bowel prep today. It is my hope that if this is successful, patient could be taken to the operating room on 06/04/2022 for laparoscopic versus open sigmoidectomy with possible anastomosis versus possible ostomy. I have held a detailed discussion with patient including drawings of the locations of his pathology and discussed the intent for this procedure would be palliative in nature. He expressed an understanding of this information and a willingness to proceed as described. In the interim this plan has been conveyed to patient's primary hospitalist. I have shared with them that my goal would be to go to the OR with a INR of 1.5 or less. They plan to consider oncology evaluation for discussions around adjuvant therapy. Tomorrow I will plan to visit with patient's to discuss our tentative surgical procedure plansl. HPI Consult Data Date of Consult: 06/02/22 HPI Narrative Reason for Consultation: Near obstructing metastatic sigmoid colon cancer HPI Narrative: GLENNA MUNGUIA, is a 71 M who presented to his primary care provider, Dr. Haynes on 05/31/2022 with complaints of some slurred speech and lower extremity weakness admits to a ongoing work-up for abnormal heart rhythm as an outpatient. Given his presentation with possible neurologic changes, he was referred to the emergency room for expedited evaluation. During this evaluation he underwent a CT head that was unremarkable for any acute stroke findings or mass-effect. His INR was supratherapeutic at 12 and he had a number of other LFT abnormalities with comprehensive metabolic panel that led to CT of the abdomen pelvis. This study found numerous hypodense lesions concerning for probable metastasis and there was a thickening within the sigmoid colon that was suspicious for a possible mass. Additionally patient was found to have a iliofemoral DVT of his left lower extremity. With the liver and possible sigmoid colon findings, gastroenterology was consulted and performed a diagnostic colonoscopy earlier today. They reported a near obstructing malignancy of the rectosigmoid colon which could not be traversed with a pediatric colonoscope. Surgery is thus consulted to consider possible palliative procedure for this diagnosis. On bedside evaluation, patient reports that 3 weeks ago he experienced some slurred speech and left leg weakness. He and his reportedly discussed that he maybe had a small stroke but did not seek immediate evaluation and later then called Dr. Haynes who recommended evaluation in his office. Outside of this acute issue, Mr. Munguia reports a weight loss of over 90 pounds in the last 2 years. He states he was an alcoholic when it came to pop, but he decided to cut this and iced tea out of his diet completely and began losing weight. Concerning his recent GI function, he reports some diarrhea, but no significant straining. Along with his diarrhea he has had infrequent stool incontinence with episodes approximately 1 time per month. He denies any recent nausea or vomiting. From a urinary standpoint he noted some orange-colored urine and burning with urination, but states the latter is improved after medication was prescribed by Dr. Haynes. He is icteric on exam, but is not able to say how long his eyes have exhibited this discoloration. 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 Diminished pulses in lower extremity Essential (primary) hypertension Hernia History of CVA (cerebrovascular accident) Hyperlipidemia Obesity Paroxysmal atrial fibrillation Type 2 diabetes mellitus Home Medications HANDICAP JEANMARIEJAHAIRA #1 ea 01/06/19 [Rx Last Taken Unknown] furosemide 40 mg tablet 40 mg PO DAILY Swelling #90 tabs 11/27/20 [Rx Last Taken 1 Month Ago ~04/30/22] atorvastatin 80 mg tablet 80 mg PO QHS #90 tabs 02/04/22 [Rx Last Taken 05/30/22] lisinopril 5 mg tablet 5 mg PO DAILY #90 tabs 02/04/22 [Rx Last Taken Unknown] metformin 500 mg tablet,extended release 24 hr 500 mg PO DAILY courtesy fill as pt is almost out 90 days #90 tabs 02/04/22 [Rx Last Taken 05/30/22] metoprolol tartrate 25 mg tablet 25 mg PO BID #180 tabs 04/01/22 [Rx Last Taken Unknown] warfarin 1 mg tablet 0.5 mg PO MOTUWETHFR 05/31/22 [History Last Taken 05/28/22] warfarin 1 mg tablet 1 mg PO SUSA 05/31/22 [History Last Taken Unknown] Allergy/AdvReac Type Severity Reaction Status Date / Time No Known Allergies Allergy Verified 05/31/22 14:18 Family History Father CAD (coronary artery disease) Mother Cancer Surgical History H/O coronary artery bypass surgery (11/22/13) History of cardioversion (09/2014) History of hernia repair History of radiofrequency ablation procedure for cardiac arrhythmia (11/2013) 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 Social History Smoking Status: Never smoker alcohol intake: never substance use type: does not use caffeine: Yes (occasional) Type: coffee what type of physical activity do you participate in: walking frequency: daily seatbelt use: always do you feel safe at home: Yes ROS Gastrointestinal Gastrointestinal: Reports diarrhea, fecal incontinence and weight changes; Denies abdominal pain, nausea or vomiting Genitourinary Genitourinary: Reports dysuria Physical Exam Const alert, oriented x3 and no apparent distress Constitutional Narrative: Appears weary and overwhelmed with recent news General Appearance: cooperative Eyes Eyes Narrative: Scleral icterus present bilaterally Lymph Lymphatic Narrative: No inguinal lymphadenopathy palpated Resp normal respiratory effort Cardio Cardio Narrative: Patient with well-healed midline sternotomy scar and inferior mediastinal drain scars GI GI Narrative: Very subtle port site scars are well-healed. Patient's abdomen is flat and nondistended. He is soft and minimally tender to palpation over the right lower quadrant. Lab / Micro Data Result Diagrams: 06/02/22 06:30 06/02/22 06:30 Labs: Laboratory Results - last 24 hr 06/01/22 16:36: POC Glucose 130 H 06/01/22 21:51: POC Glucose 131 H 06/02/22 06:30: WBC 15.1 H, RBC 4.03 L, Hgb 11.2 L, Hct 34.5 L, MCV 85.6, MCH 27.8, MCHC 32.5, RDW Std Deviation 50.5 H, RDW Coeff of Ezequiel 16.9 H, Plt Count 97 L, MPV 13.3 H, Immature Gran % (Auto) 0.900, Neut % (Auto) 83.6 H, Lymph % (Auto) 5.6 L, [place] % (Auto) 9.6, Eos % (Auto) 0.1, Baso % (Auto) 0.2, Absolute Neuts (auto) 12.6 H, Absolute Lymphs (auto) 0.84, Nucleated RBC % 0, Differential Comment SCANNED, Platelet Estimate SLT 06/02/22 06:30: PT 33.8 H, INR 3.4 06/02/22 06:30: Sodium 136, Potassium 3.9, Chloride 104, Carbon Dioxide 25.0, Anion Gap 7, BUN 15, Creatinine 0.98, Estim Creat Clear Calc 74.70, Est GFR (MDRD) Af Amer 97, Est GFR (MDRD) Non-Af 80, BUN/Creatinine Ratio 15.3, Glucose 124 H, Calcium 7.9 L, Total Bilirubin 5.30 H, AST 103 H, ALT 56, Alkaline Phosphatase 596 H, Total Protein 6.1 L, Albumin 2.1 L, Globulin 4.0, Albumin/Globulin Ratio 0.5 L 06/02/22 06:35: POC Glucose 149 H Micro: Microbiology 05/31/22 16:11 Urine, Clean Catch Urine Culture - Preliminary Culture exhibits no growth. Radiology Impression Venous Doppler Study 05/31/22 14:58 Interpretation Summary Acute deep vein thrombosis is noted in the left external iliac vein, left common femoral vein, left femoral vein, left popliteal vein, left tibio-peroneal trunk vein, left gastrocnemius vein, left posterior tibial vein, left peroneal vein, left soleal vein. Left great saphenous vein absent Ordering Physician: Michael Bland Referring Physician: Shahriar Haynes Performed By: Alida Mccabe RVT Charges/Coding Visit Charges Inpatient E&M: 13680 Init Hosp L2
[2022-06-02 17:51] LABS: Bedside Glucose 147 mg/dL (74-106)
--- NOTE | 2022-06-02 18:30 | NURSING ---
pt states he does not want to have an MRI done, MRI aware. will notify .
[2022-06-02] MEDS: Ceftriaxone 1 GM/50 ML BAG IV (21:33)
[2022-06-02] MEDS: Atorvastatin Calcium 80 MG Tablet PO (21:36)
[2022-06-02 22:00] LABS: Bedside Glucose 155 mg/dL (74-106)
[2022-06-03] VITALS (15 sets, daily range): BP systolic 98–127; BP diastolic 68–88; PULSE 84–105; RESP 16–18; TEMP 36.3–37.7; O2SAT 90–98
[2022-06-03 04:34] LABS: Absolute Lymphocyte Count 1.09 X10^3/uL (0.83-4.51); Absolute Neutrophil Count 16.5 X10^3/uL (2.0-7.7); Basophil# 0.06 X10^3/uL; Basophil% 0.3 % (0-1); Eosinophil# 0.15 X10^3/uL; Eosinophils% 0.8 % (0-5); Hematocrit 39.1 % (40-54); Hemoglobin 12.6 g/dL (13.0-16.5); Lymphocyte # 1.09 X10^3/ul (0.83-4.51); Lymphocyte % 5.5 % (19-41); Mean Corp Hgb Conc 32.2 g/dL (32-36); Mean Corpuscular Hgb 27.8 pg (27.0-32.0); Mean Corpuscular Volume 86.3 fL (80-94); Monocyte# 1.95 X10^3/uL; Monocyte% 9.8 % (0-10); NRBC Flagged by Analyzer 0 % (0-5); Neutrophil # 16.46 X10^3/uL (2.7-7.7); Neutrophil % 82.6 % (47-70); POSITIVE COUNT YES; POSITIVE DIFFERENTIAL YES; Platelet Count 96 K/mm3 (150-450); RBC Distribution Width CV 17.3 % (11.6-14.6); RBC Distribution Width SD 52.4 fl (35.1-43.9); Red Blood Count 4.53 M/mm3 (4.6-6.2); White Blood Count 19.9 K/mm3 (4.4-11.0)
[2022-06-03 04:38] LABS: Differential Indicated SCAN CRITERIA MET
[2022-06-03 04:52] LABS: Prothrombin Time (Protime)PT. 49.9 SECONDS (11.7-14.9)
[2022-06-03 04:59] LABS: International Normalized Ratio 5.5
[2022-06-03 05:05] LABS: ALB/GLOB Ratio 0.5 RATIO (0.9-2.4); AST(SGOT) 115 U/L (15-37); Alanine Aminotransfer ALT/SGPT 63 U/L (16-61); Albumin, Serum 2.1 g/dL (3.2-5.0); Alkaline Phosphatase 607 U/L (45-117); Anion Gap 10 (5-15); BUN 14 mg/dL (7-18); BUN/Creat Ratio 13.2 RATIO (10-20); Calcium,Total 7.9 mg/dL (8.5-10.1); Chloride 100 mmol/L (98-107); Creatinine, Serum 1.06 mg/dL (0.70-1.30); EST Glomerular Filtration Rate 73 mL/min (>60); Est Glom Filt Rate - Afr Amer 89 mL/min (>60); Estimated Creatinine Clearance 69.06 ml/min; Globulin 4.2 g/dL (2.2-4.2); Glucose 123 mg/dL (74-106); Potassium 3.7 mmol/L (3.5-5.1); Protein, Total 6.3 g/dL (6.4-8.2); Sodium Level 136 mmol/L (136-145)
[2022-06-03 05:08] LABS: Differential Comment SCANNED; Platelet Estimate SLT DEC (ADEQ)
--- NOTE | 2022-06-03 06:04 | PCM.HOSP.N ---
Hospitalist Note INR again elevated 5.5, suspect given history will likely continue to rise despite intervention. Will administer additional vitamin K with continued INR monitoring.
[2022-06-03 06:56] LABS: Bedside Glucose 160 mg/dL (74-106)
--- NOTE | 2022-06-03 07:11 | PN.SURG_ITS ---
Subjective Subjective Patient reviewed and surgical care assumed and Dr. Brendan Spencer's absence 71-year-old gentleman. He presents with findings consistent with extensive liver metastasis and liver failure. Limited colonoscopic endoscopic findings suggest sigmoid malignancy with near-total obstruction. The patient in addition has had a remote extensive ventral incisional hernia repair with mesh. Objective Data Objective Data Vital Signs: Vital Signs Temp Pulse Resp BP Pulse Ox O2 Del Method O2 Flow Rate 97.4 F L 95 18 119/86 H 94 Room Air 2 06/03/22 04:38 06/03/22 04:38 06/03/22 04:38 06/03/22 04:38 06/03/22 04:38 06/03/22 04:40 06/02/22 12:30 Oxygen Flow Rate (L/min) 2 Oxygen Delivery Method Room Air Weight: 206 lb 12.697 oz Body Mass Index (BMI) 28.8 Intake & Output: Intake and Output for Last 24 Hours 06/01/22 06/02/22 06/03/22 23:59 23:59 23:59 Intake Total 1954. / 1954.50 290 / 290 240 / 240 Output Total 600 / 600 250 / 250 Balance / 1954.50 -310 / -310 -10 / -10 Lab / Micro Data Result Diagrams: 06/03/22 04:04 06/03/22 04:04 Labs: Laboratory Results - last 24 hr 06/02/22 06:30: Differential Comment SCANNED, Platelet Estimate SLT 06/02/22 06:30: Sodium 136, Potassium 3.9, Chloride 104, Carbon Dioxide 25.0, Anion Gap 7, BUN 15, Creatinine 0.98, Estim Creat Clear Calc 74.70, Est GFR (MDRD) Af Amer 97, Est GFR (MDRD) Non-Af 80, BUN/Creatinine Ratio 15.3, Glucose 124 H, Calcium 7.9 L, Total Bilirubin 5.30 H, AST 103 H, ALT 56, Alkaline P hosphatase 596 H, Total Protein 6.1 L, Albumin 2.1 L, Globulin 4.0, Albumin/Globulin Ratio 0.5 L 06/02/22 17:29: POC Glucose 147 H 06/02/22 21:39: POC Glucose 155 H 06/03/22 04:04: WBC 19.9 H, RBC 4.53 L, Hgb 12.6 L, Hct 39.1 L, MCV 86.3, MCH 27.8, MCHC 32.2, RDW Std Deviation 52.4 H, RDW Coeff of Ezequiel 17.3 H, Plt Count 96 L, MPV TNP, Immature Gran % (Auto) 1.000 H, Neut % (Auto) 82.6 H, Lymph % (Auto) 5.5 L, [place] % (Auto) 9.8, Eos % (Auto) 0.8, Baso % (Auto) 0.3, Absolute Neuts (auto) 16.5 H, Absolute Lymphs (auto) 1.09, Nucleated RBC % 0, Differential Comment SCANNED, Diff Path Review November, Platelet Estimate SLT 06/03/22 04:04: PT 49.9 H, INR 5.5 H* 06/03/22 04:04: Sodium 136, Potassium 3.7, Chloride 100, Carbon Dioxide 26.0, Anion Gap 10, BUN 14, Creatinine 1.06, Estim Creat Clear Calc 69.06, Est GFR (MDRD) Af Amer 89, Est GFR (MDRD) Non-Af 73, BUN/Creatinine Ratio 13.2, Glucose 123 H, Calcium 7.9 L, Total Bilirubin 6.50 H, AST 115 H, ALT 63 H, Alkaline Phosphatase 607 H, Total Protein 6.3 L, Albumin 2.1 L, Globulin 4.2, Albumin/Globulin Ratio 0.5 L 06/03/22 06:26: POC Glucose 160 H Micro: Microbiology 05/31/22 16:11 Urine, Clean Catch Urine Culture - Preliminary Culture exhibits no growth. Physical Exam Narrative Patient is markedly jaundiced. GI GI Narrative: Soft, mildly distended, liver enlargement noted. Bowel sounds present nonspecific. Assessment & Plan Assessment/Plan (1) Partial obstruction of colon: (2) Liver metastases: (3) DVT of lower extremity (deep venous thrombosis): (4) Coagulopathy: (5) Liver failure: PLAN: Plan Complicated 71-year-old gentleman. Today's lab work demonstrates a progressively rising leukocytosis with a white blood cell count of 19.9. Hemoglobin 12.6 and hematocrit 96,000. INR is hypertherapeutic at 5.5. This has worsened since yesterday. Total bilirubin now is 6.5 with an AST of 115 ALT of 63 and an alkaline phosphatase of 607. Albumin is only 2.1. The patient has an extensive left lower extremity deep venous thrombosis. Vena cava filter in place. The patient is stating that he does not prefer to have surgery and is anxious to go home. Initially I had advised Dr. Spencer to consider resection of the sigmoid lesion to assist with potential postoperative need for further anticoagulation and bleeding problems. Unfortunately that was prior to my understanding the depth of this patient's illness and liver failure and hypertherapeutic anticoagulation. He will not do well with surgical intervention whether that be an attempt at sigmoid resection or diversion. He has remote previous ventral incisional mesh repair complicates his presentation and complicate surgical approach and leads to increased hemorrhage risk. It is of additional note that he is not interested in proceeding with this. Therefore I would believe that his best short-term option would be for Dr. Neal to perform a endoscopic stenting of this lesion if feasible. If this is not feasible then the patient may be a hospice candidate. Paul Pugh M.D., F.A.C.S.
[2022-06-03] MEDS: Furosemide 40 MG Tablet PO (09:41)
[2022-06-03] MEDS: Metoprolol Tartrate 25 MG Tablet PO ×2 (09:41→11:15)
[2022-06-03] MEDS: Insulin Lispro 100 UNIT/ML INSULN.PEN SC ×2 (11:19→16:41)
[2022-06-03] MEDS: 0.9% Saline Lock 10 ML Syringe IV (11:27)
[2022-06-03] MEDS: Furosemide 20 MG/2 ML VIAL IV (11:27)
[2022-06-03 11:55] LABS: Bedside Glucose 221 mg/dL (74-106)
[2022-06-03 15:41] LABS: Pathologist Review Reviewed
--- NOTE | 2022-06-03 16:23 | CASEMGMT ---
Physician spoke with patient and his . All are in agreement with referral to Hospice. SW faxed referral to Hospice. SW also called Hospice and left a voice mail with referral. [facility] also Libra regarding referral as well. Mandi Hoff IMPREGNATOR AND [employer]PER [employer]
--- NOTE | 2022-06-03 16:43 | ONC.CONSULT ---
Assessment & Plan Assessment/Plan (1) Partial obstruction of colon: Status: Acute Code(s): K56.600 - Partial intestinal obstruction, unspecified as to cause (2) Liver metastases: Status: Acute Code(s): C78.7 - Secondary malignant neoplasm of liver and intrahepatic bile duct (3) DVT of lower extremity (deep venous thrombosis): Status: Acute Code(s): I82.409 - Acute embolism and thrombosis of unspecified deep veins of unspecified lower extremity (4) Coagulopathy: Status: Acute Code(s): D68.9 - Coagulation defect, unspecified (5) Liver failure: Status: Acute Code(s): K72.90 - Hepatic failure, unspecified without coma Plan: Most likely due to colon cancer with liver metastases and liver failure. Biopsy of colonic mass is pending. He is a poor candidate for chemotherapy.Prognosis poor and may be in weeks. Discussed clinical situation with Pt and , he would like to go home. HPI Consult Data Date of Service:: 06/03/22 PCP / Referring Provider: Dr. Shahriar Haynes MD Attending: Dr. Ambar Pepe MD Chief Complaint Chief Complaint: Asked to see Pt for colonic mass and liver masses. History of Present Illness History of Present Illness: 71y.o.man with swelling of L leg and general weakness. Doppler on 05/31/2022 showed left femoral DVT, CT of the abdomen and pelvis on 05/31/2022 showed multiple low densities in the liver compatible with extensive metastatic disease, thickening of the sigmoid colon with incomplete distention, right lower lobe consolidation, stable right adrenal mass. Colonoscopy on 06/02/2022 showed malignant looking obstructing tumor in the rectosigmoid. Biopsy is pending. 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 Diminished pulses in lower extremity Essential (primary) hypertension Hernia History of CVA (cerebrovascular accident) Hyperlipidemia Obesity Paroxysmal atrial fibrillation Type 2 diabetes mellitus Home Medications HANDICAP PLACARD #1 ea 01/06/19 [Rx Last Taken Unknown] furosemide 40 mg tablet 40 mg PO DAILY Swelling #90 tabs 05/06/21 [Rx Last Taken 1 Month Ago ~04/30/22] atorvastatin 80 mg tablet 80 mg PO QHS #90 tabs 02/04/22 [Rx Last Taken 05/30/22] lisinopril 5 mg tablet 5 mg PO DAILY #90 tabs 02/04/22 [Rx Last Taken Unknown] metformin 500 mg tablet,extended release 24 hr 500 mg PO DAILY courtesy fill as pt is almost out 90 days #90 tabs 02/04/22 [Rx Last Taken 05/30/22] metoprolol tartrate 25 mg tablet 25 mg PO BID #180 tabs 04/01/22 [Rx Last Taken Unknown] warfarin 1 mg tablet 0.5 mg PO MOTUWETHFR 05/31/22 [History Last Taken 05/28/22] warfarin 1 mg tablet 1 mg PO SUSA 05/31/22 [History Last Taken Unknown] Allergy/AdvReac Type Severity Reaction Status Date / Time No Known Allergies Allergy Verified 05/31/22 14:18 Family History Father CAD (coronary artery disease) Mother Cancer Surgical History H/O coronary artery bypass surgery (11/22/13) History of cardioversion (09/2014) History of hernia repair History of radiofrequency ablation procedure for cardiac arrhythmia (11/2013) 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 Neck General: trachea midline Lymph Lymphatic: no lymphadenopathy noted Chest inspection of chest normal Resp normal respiratory effort and clear to auscultation bilaterally Cardio S1 normal heart sound and S2 normal heart sound GI normal to inspection, nondistended, normoactive bowel sounds Extremity Extremity Narrative: + swelling L leg. Neuro CN's II-XII intact bilaterally and moves all extremities Psych mental status grossly normal Vital Signs Temperature 98.2 F 06/03/22 15:40 Temperature Source Oral 06/03/22 15:40 Pulse Rate 95 06/03/22 15:40 Pulse Strength Normal (2+) 06/03/22 07:50 Respiratory Rate 16 06/03/22 15:40 Respiratory Effort Non-Labored 06/03/22 14:00 Respiratory Depth Normal 06/03/22 14:00 Respiratory Pattern Normal 06/03/22 14:00 Blood Pressure 111/80 06/03/22 15:40 Blood Pressure Mean 90 06/03/22 15:40 Blood Pressure Source Monitor 06/03/22 15:40 Blood Pressure Position Semi-Fowlers 06/03/22 15:40 Blood Pressure Location Left Arm 06/03/22 15:40 Baseline BP 111/74 06/02/22 12:35 Pulse Ox 98 06/03/22 15:40 Oxygen Delivery Method Nasal Cannula 06/03/22 15:40 Oxygen Flow Rate (L/min) 2 06/03/22 15:40 Laboratory Results - last 24 hr 06/02/22 17:29: POC Glucose 147 H 06/02/22 21:39: POC Glucose 155 H 06/03/22 04:04: WBC 19.9 H, RBC 4.53 L, Hgb 12.6 L, Hct 39.1 L, MCV 86.3, MCH 27.8, MCHC 32.2, RDW Std Deviation 52.4 H, RDW Coeff of Ezequiel 17.3 H, Plt Count 96 L, MPV TNP, Immature Gran % (Auto) 1.000 H, Neut % (Auto) 82.6 H, Lymph % (Auto) 5.5 L, [place] % (Auto) 9.8, Eos % (Auto) 0.8, Baso % (Auto) 0.3, Absolute Neuts (auto) 16.5 H, Absolute Lymphs (auto) 1.09, Nucleated RBC % 0, Differential Comment SCANNED, Diff Path Review Reviewed, Platelet Estimate SLT 06/03/22 04:04: PT 49.9 H, INR 5.5 H* 06/03/22 04:04: Sodium 136, Potassium 3.7, Chloride 100, Carbon Dioxide 26.0, Anion Gap 10, BUN 14, Creatinine 1.06, Estim Creat Clear Calc 69.06, Est GFR (MDRD) Af Amer 89, Est GFR (MDRD) Non-Af 73, BUN/Creatinine Ratio 13.2, Glucose 123 H, Calcium 7.9 L, Total Bilirubin 6.50 H, AST 115 H, ALT 63 H, Alkaline Phosphatase 607 H, Total Protein 6.3 L, Albumin 2.1 L, Globulin 4.2, Albumin/Globulin Ratio 0.5 L 06/03/22 06:26: POC Glucose 160 H 06/03/22 11:16: POC Glucose 221 H Microbiology 05/31/22 16:11 Urine, Clean Catch Urine Culture - Final Culture exhibits no growth. Diagnostic Data Brain CT 05/31/22 14:58 IMPRESSION: 1. No acute intracranial abnormality. There is remote right basal ganglia infarct. 2. Underlying senescent changes with small vessel ischemia. 3. Chronic appearing maxillary sinusitis. Electronically Signed: Timoteo Swartz MD at 16:31 EST , Venous Doppler Study 05/31/22 14:58 Interpretation Summary Acute deep vein thrombosis is noted in the left external iliac vein, left common femoral vein, left femoral vein, left popliteal vein, left tibio-peroneal trunk vein, left gastrocnemius vein, left posterior tibial vein, left peroneal vein, left soleal vein. Left great saphenous vein absent Ordering Physician: Michael Bland Referring Physician: Shahriar Haynes Performed By: Alida Mccabe RVT Chest X-Ray 05/31/22 15:35 IMPRESSION: No acute pulmonary abnormality. Electronically Signed: Timoteo Swartz MD at 16:32 EST , Abdomen/Pelvis CT 05/31/22 19:18 IMPRESSION: 1. Multiple low-density masses seen throughout the liver compatible with extensive metastatic disease. 2. Wall thickening of the mid sigmoid colon which may be due to incomplete distention or a possible mass. Further evaluation colonoscopy may be beneficial. 3. Consolidation in the right lower lobe compatible with atelectasis or pneumonia. 4. Stable right adrenal mass. There are also stable splenic calcifications present which likely represent granulomas. Electronically Signed: Timoteo Swartz MD at 20:07 EST , Charges/Coding Visit Charges Office Visits / Consults: [id number] IP Consult L4
[2022-06-03 17:05] LABS: Bedside Glucose 167 mg/dL (74-106)
--- NOTE | 2022-06-03 17:10 | PN.HOSP_ITS ---
Subjective Subjective Follow-up on acute left lower extremity DVT/probable metastatic CA/supratherapeutic INR: Patient was seen and examined. Denied any new complaint. He is eager to be discharged. Discussed with patient and his , he is open to meeting with hospice tomorrow. Patient refused MRI of the brain yesterday. He is reluctant to undergo a bowel prep again. Objective Data Objective Data Vital Signs: Vital Signs Temp Pulse Resp BP Pulse Ox O2 Del Method O2 Flow Rate 98.2 F 95 16 111/80 98 Nasal Cannula 2 06/03/22 15:40 06/03/22 15:40 06/03/22 15:40 06/03/22 15:40 06/03/22 15:40 06/03/22 15:40 06/03/22 15:40 Oxygen Flow Rate (L/min) 2 Oxygen Delivery Method Nasal Cannula Weight: 93.8 kg Body Mass Index (BMI) 28.8 Intake & Output: Intake and Output for Last 24 Hours 06/01/22 06/02/22 06/03/22 23:59 23:59 23:59 Intake Total 5.50 / 1954.50 290 / 290 790.5 / 790.5 Output Total 600 / 600 250 / 250 Balance 5.50 / 1955.50 -310 / -310 540.5 / 540.5 Lab / Micro Data Result Diagrams: 06/03/22 04:04 06/03/22 04:04 Labs: Laboratory Results - last 24 hr 06/02/22 17:29: POC Glucose 147 H 06/02/22 21:39: POC Glucose 155 H 06/03/22 04:04: WBC 19.9 H, RBC 4.53 L, Hgb 12.6 L, Hct 39.1 L, MCV 86.3, MCH 27.8, MCHC 32.2, RDW Std Deviation 52.4 H, RDW Coeff of Ezequiel 17.3 H, Plt Count 96 L, MPV TNP, Immature Gran % (Auto) 1.000 H, Neut % (Auto) 82.6 H, Lymph % (Auto) 5.5 L, [place] % (Auto) 9.8, Eos % (Auto) 0.8, Baso % (Auto) 0.3, Absolute Neuts (auto) 16.5 H, Absolute Lymphs (auto) 1.09, Nucleated RBC % 0, Differential Comment SCANNED, Diff Path Review Reviewed, Platelet Estimate SLT 06/03/22 04:04: PT 49.9 H, INR 5.5 H* 06/03/22 04:04: Sodium 136, Potassium 3.7, Chloride 100, Carbon Dioxide 26.0, Anion Gap 10, BUN 14, Creatinine 1.06, Estim Creat Clear Calc 69.06, Est GFR (MDRD) Af Amer 89, Est GFR (MDRD) Non-Af 73, BUN/Creatinine Ratio 13.2, Glucose 123 H, Calcium 7.9 L, Total Bilirubin 6.50 H, AST 115 H, ALT 63 H, Alkaline Phosphatase 607 H, Total Protein 6.3 L, Albumin 2.1 L, Globulin 4.2, Albumin/Globulin Ratio 0.5 L 06/03/22 06:26: POC Glucose 160 H 06/03/22 11:16: POC Glucose 221 H 06/03/22 16:40: POC Glucose 167 H Micro: Microbiology 05/31/22 16:11 Urine, Clean Catch Urine Culture - Final Culture exhibits no growth. Physical Exam Narrative Physical exam: General: Alert, Oriented x3, Cooperative, per and well, not on oxygen HEENT: Atraumatic Oral: Moist Mucosa Neck: Supple Lungs: Diminished to auscultation Cardiovascular: HS I+II, irregular, no murmurs Abdomen: Bowel Sounds Present, Soft, Non Tender Extremities: Left lower extremity swelling is improved Skin: No rashes, No breakdown Neurological: Grossly intact Psych/Mental Status: Appropriate Assessment & Plan Assessment/Plan (1) Liver metastases: (2) DVT of lower extremity (deep venous thrombosis): PLAN: Plan 1. Supratherapeutic INR,persists, INR is 5.5 s/p PO vitamin K today Received 2 units FFPs 2 days ago Repeat INR in a.m. 2. Elevated LFTs, probable beginning of liver failure secondary to extensive liver metastasis Patient total bilirubin is steadily rising as well as AST, ALT and ALP 3. Acute left lower extremity DVT, present on admission Patient has history of IVC filter; will continue off anticoagulation 4. Colon CA with mets to the liver, status post colonoscopy today 06/02/2022 which showed circumferential large nearly obstructing rectosigmoid mass. CT abdomen/pelvis showed multiple low-density masses throughout the liver, mid sigmoid colon wall thickening GI and general surgery following; patient said not to be a candidate for colectomy. Palliative stenting of the rectosigmoid area recommended; discussed with GI, will follow up 5. Acute UTI, urine cultures showed no growth Will continue IV ceftriaxone aim for 5 days total 6. Confusion, slurred speech, appears resolved. CT of the brain showed no acute intracranial abnormality. Patient refused MRI of the brain yesterday 7. Chronic atrial flutter, rate controlled, 8. Hypertension, controlled now, continue to hold lisinopril Continue metoprolol 9. Type II DM, home metformin on hold Continue to hold metformin, continue with insulin sliding scale blood glucose checks 10. DVT prophylaxis- INR supra-therapeutic Patient is hospice appropriate will be followed up with hospice tomorrow Charges/Coding Visit Charges Inpatient E&M: 93732 [facility] Hosp L3
--- NOTE | 2022-06-03 17:54 | PN_ITS ---
Subjective Subjective Patient is lying in bed and seems very depressed. He denies any abdominal pain and is having some small liquid stools. Objective Data Objective Data Vital Signs: Vital Signs Temp Pulse Resp BP Pulse Ox O2 Del Method O2 Flow Rate 98.2 F 95 16 111/80 98 Nasal Cannula 2 06/03/22 15:40 06/03/22 15:40 06/03/22 15:40 06/03/22 15:40 06/03/22 15:40 06/03/22 15:40 06/03/22 15:40 Oxygen Flow Rate (L/min) 2 Oxygen Delivery Method Nasal Cannula Weight: 206 lb 12.697 oz Body Mass Index (BMI) 28.8 Intake & Output: Intake and Output for Last 24 Hours 06/01/22 06/02/22 06/03/22 23:59 23:59 23:59 Intake Total 1954.50 / 1954.50 290 / 290 790.5 / 790.5 Output Total 600 / 600 250 / 250 Balance 5.50 / 5.50 -310 / -310 540.5 / 540.5 Lab / Micro Data Result Diagrams: 06/03/22 04:04 06/03/22 04:04 Labs: Laboratory Results - last 24 hr 06/02/22 21:39: POC Glucose 155 H 06/03/22 04:04: WBC 19.9 H, RBC 4.53 L, Hgb 12.6 L, Hct 39.1 L, MCV 86.3, MCH 27.8, MCHC 32.2, RDW Std Deviation 52.4 H, RDW Coeff of Ezequiel 17.3 H, Plt Count 96 L, MPV TNP, Immature Gran % (Auto) 1.000 H, Neut % (Auto) 82.6 H, Lymph % (Auto) 5.5 L, [place] % (Auto) 9.8, Eos % (Auto) 0.8, Baso % (Auto) 0.3, Absolute Neuts (auto) 16.5 H, Absolute Lymphs (auto) 1.09, Nucleated RBC % 0, Differential Comment SCANNED, Diff Path Review Reviewed, Platelet Estimate SLT 06/03/22 04:04: PT 49.9 H, INR 5.5 H* 06/03/22 04:04: Sodium 136, Potassium 3.7, Chloride 100, Carbon Dioxide 26.0, Anion Gap 10, BUN 14, Creatinine 1.06, Estim Creat Clear Calc 69.06, Est GFR (MDRD) Af Amer 89, Est GFR (MDRD) Non-Af 73, BUN/Creatinine Ratio 13.2, Glucose 123 H, Calcium 7.9 L, Total Bilirubin 6.50 H, AST 115 H, ALT 63 H, Alkaline Phosphatase 607 H, Total Protein 6.3 L, Albumin 2.1 L, Globulin 4.2, Albumin/Globulin Ratio 0.5 L 06/03/22 06:26: POC Glucose 160 H 06/03/22 11:16: POC Glucose 221 H 06/03/22 16:40: POC Glucose 167 H Micro: Microbiology 05/31/22 16:11 Urine, Clean Catch Urine Culture - Final Culture exhibits no growth. Physical Exam Narrative Physical exam: General: Alert, Oriented x3, Cooperative, per and well, not on oxygen HEENT: Atraumatic Oral: Moist Mucosa Neck: Supple Lungs: Diminished to auscultation Cardiovascular: HS I+II, irregular, no murmurs Abdomen: Bowel Sounds Present, Soft, Non Tender Extremities: Left lower extremity swelling is improved Skin: No rashes, No breakdown Neurological: Grossly intact Psych/Mental Status: Appropriate Assessment & Plan Assessment/Plan (1) Partial obstruction of colon: PLAN: Almost complete large bowel obstruction secondary to sigmoid colonic mass with metastasis to the liver. I had a long talk with his at the bedside as hospice is discussing his options with him. I am recommending a colonic stent for decompression of likely complete large bowel obstruction. Him and his will discuss it this evening and let me know tomorrow whether or not to pursue colonic decompression. I would need to know by tomorrow to order a colonic stent for him to be able to do the procedure early next week. Charges/Coding Visit Charges Inpatient E&M: 32297 Subs Hosp L2
[2022-06-03] MEDS: Metoprolol Tartrate 50 MG Tablet PO (22:36)
[2022-06-03] MEDS: Atorvastatin Calcium 80 MG Tablet PO (22:36)
[2022-06-04] VITALS (9 sets, daily range): BP systolic 105–122; BP diastolic 64–82; PULSE 91–113; RESP 14–18; TEMP 36.6–37.3; O2SAT 92–97
[2022-06-04 00:45] LABS: Bedside Glucose 142 mg/dL (74-106)
[2022-06-04] MEDS: Insulin Lispro 100 UNIT/ML INSULN.PEN SC ×3 (05:57→16:26)
[2022-06-04 06:20] LABS: Absolute Lymphocyte Count 0.95 X10^3/uL (0.83-4.51); Absolute Neutrophil Count 17.9 X10^3/uL (2.0-7.7); Basophil# 0.05 X10^3/uL; Basophil% 0.2 % (0-1); Eosinophil# 0.12 X10^3/uL; Eosinophils% 0.6 % (0-5); Hematocrit 41.6 % (40-54); Hemoglobin 13.9 g/dL (13.0-16.5); Lymphocyte # 0.95 X10^3/ul (0.83-4.51); Lymphocyte % 4.5 % (19-41); Mean Corp Hgb Conc 33.4 g/dL (32-36); Mean Corpuscular Hgb 28.4 pg (27.0-32.0); Mean Corpuscular Volume 85.1 fL (80-94); Monocyte# 2.07 X10^3/uL; Monocyte% 9.7 % (0-10); NRBC Flagged by Analyzer 0 % (0-5); Neutrophil # 17.87 X10^3/uL (2.7-7.7); POSITIVE COUNT YES; POSITIVE DIFFERENTIAL YES; Platelet Count 92 K/mm3 (150-450); RBC Distribution Width CV 17.7 % (11.6-14.6); RBC Distribution Width SD 51.3 fl (35.1-43.9); Red Blood Count 4.89 M/mm3 (4.6-6.2); White Blood Count 21.3 K/mm3 (4.4-11.0)
[2022-06-04 06:22] LABS: Differential Indicated SCAN CRITERIA MET
[2022-06-04 06:26] LABS: International Normalized Ratio 2.6; Prothrombin Time (Protime)PT. 27.3 SECONDS (11.7-14.9)
[2022-06-04 06:51] LABS: ALB/GLOB Ratio 0.5 RATIO (0.9-2.4); AST(SGOT) 118 U/L (15-37); Alanine Aminotransfer ALT/SGPT 71 U/L (16-61); Albumin, Serum 2.1 g/dL (3.2-5.0); Alkaline Phosphatase 647 U/L (45-117); Anion Gap 10 (5-15); BUN 19 mg/dL (7-18); Calcium,Total 7.9 mg/dL (8.5-10.1); Chloride 97 mmol/L (98-107); Creatinine, Serum 1.19 mg/dL (0.70-1.30); EST Glomerular Filtration Rate 64 mL/min (>60); Est Glom Filt Rate - Afr Amer 78 mL/min (>60); Estimated Creatinine Clearance 61.52 ml/min; Globulin 4.3 g/dL (2.2-4.2); Glucose 147 mg/dL (74-106); Potassium 3.6 mmol/L (3.5-5.1); Protein, Total 6.4 g/dL (6.4-8.2); Sodium Level 132 mmol/L (136-145)
[2022-06-04 06:53] LABS: Differential Comment SCANNED; Platelet Estimate SLT DEC (ADEQ)
[2022-06-04 07:10] LABS: Bedside Glucose 172 mg/dL (74-106)
[2022-06-04] MEDS: Furosemide 40 MG Tablet PO (09:27)
[2022-06-04 09:38] LABS: Pathologist Review Reviewed
[2022-06-04 11:35] LABS: Bedside Glucose 213 mg/dL (74-106)
[2022-06-04] MEDS: Ensure Plus High Protein 120 ML LIQUID PO (13:01)
--- NOTE | 2022-06-04 13:35 | CASEMGMT ---
Physician spoke with patient and his . They have decided to take patient home on Hospice. They would like to know how soon Hospice would be able to get a bed and other equipment into the home. [facility] called Hospice and spoke with Gina Trevino. [facility] told Gina Trevino that if they can get all the equipment patient needs in the home tonight would like patient to come home tonight. [facility] told Gina Trveino someone would need to call patient's to see what other equipment she would need. Gina Trevino said they will work on it and let [facility] know. Mandi FARIA
--- NOTE | 2022-06-04 13:55 | DCINST_ITS ---
Discharge Instructions Diet Discharge Diet: No restrictions Activity Discharge Activity: Return to Normal Activity Follow Up Care Test Results: Test results from this visit will be discussed in further detail at your follow- up appointment, if applicable. Discharge Plan Admission Admit Date/Time: 05/31/22 21:11 Primary Reason for Your Visit: Acute DVT/Liver masses Attending Provider: Ambar Pepe Primary Care Provider: Shahriar Haynes Consulting Providers: Shahriar Haynes ; Michael Moscoso ; Brendan Spencer ; Mariano Mujica ; Neel Georges ; [place] ; Paul Alvarez ; Yoel Brown ; Go Forrest ; Jag Go ; Alanna Han NP ; Eder Shepard Discharge Orders/Prescriptions Prescriptions: New metoprolol tartrate 50 mg Tablet 50 mg PO BID Qty: 0 0RF Ensure Plus High Protein 0.08 gram-1.5 kcal/mL Liquid 120 ml PO 4X/DAY Qty: 0 0RF Continued (DME) HANDICAP PLACARD Qty: 1 0RF Dose Instruction: As directed Rx Instructions: Handicap Placard start 01/06/19 end 01/07/2024 Discontinued furosemide 40 mg tablet 40 mg PO DAILY Qty: 90 3RF metoprolol tartrate 25 mg tablet 25 mg PO BID Qty: 180 3RF warfarin 1 mg Tablet 0.5 mg PO MOTUWETHFR warfarin 1 mg tablet 1 mg PO SUSA Protocol: Dose Management Condition: Tuesday Dose/Route: 1 mg Instruction: 1 x 1 mg tablet Condition: Tuesday Dose/Route: 0 mg Instruction: 0 tablets Condition: Tuesday Dose/Route: 0.5 mg Instruction: 0.5 x 1 mg tablets Condition: Tuesday Dose/Route: 0.5 mg Instruction: 0.5 x 1 mg tablets Condition: Dose/Route: 0.5 mg Instruction: 0.5 x 1 mg tablets Condition: Tuesday Dose/Route: 0.5 mg Instruction: 0.5 x 1 mg tablets Condition: Tuesday Dose/Route: 0.5 mg Instruction: 0.5 x 1 mg tablets Protocol Text: Adjustment Start Date: Tuesday05/10/22 INR Value: 4.8 INR Date: 05/10/22 Recheck Date: 05/17/22 Rx Instructions: 1 mg PO daily or otherwise as directed lisinopril 5 mg tablet 5 mg PO DAILY Qty: 90 3RF atorvastatin 80 mg tablet 80 mg PO QHS Qty: 90 3RF metformin 500 mg tablet extended release 24 hr 500 mg PO DAILY 90 Days Qty: 90 3RF Referrals / Follow Up: Shahriar Haynes MD [Primary Care Provider] - Disposition Disposition (needs filled in before D/C Order can be placed): Hospice in Home
--- NOTE | 2022-06-04 13:59 | PCM.DC.SUM ---
Providers Date of Admission: 05/31/22 Date of Discharge: 06/04/22 Primary Care Physician: Dr. Shahriar Haynes MD Consultations 05/31/22 22:05 Consult: Gastroenterology Routine Consulting Provider: [facility] Reason for Consult: liver and colon disease EMERGENT Consult: Yes MD Notified: Yes Date Notified: 05/31/22 Time Notified: 21:16 Method of Notification: Text 06/01/22 09:00 Consult: Vascular Surgery Routine Consulting Provider: Michael Moscoso Reason for Consult: DVT left leg EMERGENT Consult: No MD Notified: Yes Date Notified: 06/01/22 Time Notified: 09:00 Method of Notification: Verbal 06/02/22 14:42 Consult: General Surgery Routine Consulting Provider: Brendan Spencer Reason for Consult: obstructing mass EMERGENT Consult: No MD Notified: Yes Date Notified: 06/02/22 Time Notified: 13:30 Method of Notification: Answering Service Comments:: Dr. nicholson notified Dr. Spencer 06/02/22 17:51 Consult: Oncology/Hematology Routine Consulting Provider: [facility] Reason for Consult: Colon cancer EMERGENT Consult: No Notified: Yes Date Notified: 06/03/22 Time Notified: 08:03 Method of Notification: Verbal Consult: Urology Routine Consulting Provider: Eder Shepard Reason for Consult: BPH EMERGENT Consult: No MD Notified: Yes Date Notified: 06/04/22 Time Notified: 10:02 Method of Notification: Verbal Reason For Visit: METASTATIC LIVER DISEASE,GENERALIZED WEAKNESS,UTI, Diagnosis Discharge Diagnosis (1) Partial obstruction of colon: Status: Acute Code(s): K56.600 - Partial intestinal obstruction, unspecified as to cause Plan 1. Supratherapeutic INR,resolved 2. Elevated LFTs, probable beginning of liver failure secondary to extensive liver metastasis 3. Acute left lower extremity DVT, present on admission 4. 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 Acute UTI 6. Confusion, slurred speech, appears resolved. 7. Chronic atrial flutter 8. Hypertension 9. Type II DM Medications at Discharge Home Medications HANDICAP PLACARD #1 ea 01/06/19 food supplemt, lactose-reduced 0.08 gram-1.5 kcal/mL oral liquid (Ensure Plus High Protein) 120 ml PO 4X/DAY #0 mL 06/04/22 metoprolol tartrate 50 mg tablet 50 mg PO BID #0 tabs 06/04/22 Hospital Course Operations None Procedures 2-D Echocardiogram and Colonoscopy Summary of Care Provided Minutes Spent on Discharge: 45 Hospital Course: 71 y/o male with a history of chronic diastolic CHF, hypertension, history of CVA, hyperlipidemia, paroxysmal atrial fibrillation, type II DM who comes in with generalized weakness, left leg swelling and incontinence of urine. Patient was seen earlier on in her PCPs office with transient slurring of speech, left leg swelling and weakness. Patient also complained of worsening urine incontinence. In the emergency room, CT of the head was negative for acute changes. Urinalysis was consistent with acute UTI. He had elevated LFTs and INR. His admitting INR was 8.1. CT of the abdomen pelvis showed metastatic disease of the liver with thickening of the rectosigmoid area suggestive of malignancy. Doppler ultrasound lower extremities showed acute deep vein thrombosis in the left external iliac, left common femoral vein, left femoral vein, left popliteal vein, left tibial peroneal trunk vein, left gastrinomas vein, left posterior tibial vein, left peroneal vein, left soleal vein. Left saphenous vein was absent. Patient was admitted to the hospital, started on heparin drip. His INR showed up to more than 19.5 the next day. Heparin drip was stopped. He received vitamin K and FFP's. Patient also had GI bleed as well as bleeding from his IV site and skin oozing. He was seen by GI and underwent colonoscopy on 06/02/22. Findings showed a partially obstructing rectosigmoid colon mass. Biopsies were taken. Results showed poorly differentiated invasive adenocarcinoma. General surgery and oncology were consulted. Patient was found not to be a candidate for colectomy. Hospice was recommended. Patient's LFTs appear to be gradually worsening over time. Patient was seen by GI with plans of palliative stent to be placed in the colon. Upon further discussion with patient, he was eager to be discharged, he stated that if this was not going to prolong his life then he was not going to get the stent placement. It was felt upon discussed with all subspecialists that patient's liver enzymes was worsening from the metastatic disease and patient has very limited life expectancy and may not benefit from stent placement. Patient agreed with that assessment and wanted discharged home with hospice. Discussed with hospice and his , when patient's symptoms get worse, he will be admitted to the inpatient hospice unit. Physical Exam Narrative Physical exam: General: Alert, Oriented x3, Cooperative, jaundiced, appears unwell, coarse tremors present. HEENT: Atraumatic Oral: Moist Mucosa Neck: Supple Lungs: Diminished to auscultation Cardiovascular: HS I+II, irregular, no murmurs Abdomen: Bowel Sounds Present, Soft, Non Tender Extremities: Left lower extremity swelling is improved Skin: No rashes, No breakdown Neurological: Grossly intact Psych/Mental Status: Appropriate Weight / BMI Weight Weight: 93.8 kg Body Mass Index (BMI) 28.8 ABG / Lab / Microbiology Data Result Diagrams: 06/04/22 05:40 06/04/22 05:40 Laboratory: Laboratory Results - last 24 hr 06/03/22 04:04: Diff Path Review Reviewed 06/03/22 16:40: POC Glucose 167 H 06/03/22 22:41: POC Glucose 142 H 06/04/22 05:40: WBC 21.3 H, RBC 4.89, Hgb 13.9, Hct 41.6, MCV 85.1, MCH 28.4, MCHC 33.4, RDW Std Deviation 51.3 H, RDW Coeff of Ezequiel 17.7 H, Plt Count 92 L, MPV TNP, Immature Gran % (Auto) 1.000 H, Neut % (Auto) 84.0 H, Lymph % (Auto) 4.5 L, [place] % (Auto) 9.7, Eos % (Auto) 0.6, Baso % (Auto) 0.2, Absolute Neuts (auto) 17.9 H, Absolute Lymphs (auto) 0.95, Nucleated RBC % 0, Differential Comment SCANNED, Diff Path Review Reviewed, Platelet Estimate SLT 06/04/22 05:40: PT 27.3 H, INR 2.6 06/04/22 05:40: Sodium 132 L, Potassium 3.6, Chloride 97 L, Carbon Dioxide 25.0, Anion Gap 10, BUN 19 H, Creatinine 1.19, Estim Creat Clear Calc 61.52, Est GFR (MDRD) Af Amer 78, Est GFR (MDRD) Non-Af 64, BUN/Creatinine Ratio 16.0, Glucose 147 H, Calcium 7.9 L, Total Bilirubin 7.60 H, AST 118 H, ALT 71 H, Alkaline Phosphatase 647 H, Total Protein 6.4, Albumin 2.1 L, Globulin 4.3 H, Albumin/Globulin Ratio 0.5 L 06/04/22 05:55: POC Glucose 172 H 06/04/22 11:12: POC Glucose 213 H Microbiology: Microbiology 05/31/22 16:11 Urine, Clean Catch Urine Culture - Final Culture exhibits no growth. D/C Instructions Discharge Diet: No restrictions Meaningful Use Info Meaningful Use Diagnoses (Choose all that apply): VTE VTE Anticoag overlap given w/in hospital stay or rx'd at dc?: No Reason overlap not ordered, prescribed, or given for 5 days: Treatment Not Indicated Discharge Plan Admission Admit Date/Time: 05/31/22 21:11 Primary Reason for Your Visit: Acute DVT/Liver masses Attending Provider: Ambar Pepe Primary Care Provider: Shahriar Haynes Consulting Providers: Shahriar Haynes ; Michael Moscoso ; Brendan Spencer ; Mariano Mujica ; Neel Georges ; [place] ; Paul Alvarez ; Yoel Brown ; Go Forrest ; Jag Go ; Alanna Han NP ; Eder Shepard Discharge Orders/Prescriptions Prescriptions: New metoprolol tartrate 50 mg Tablet 50 mg PO BID Qty: 0 0RF Ensure Plus High Protein 0.08 gram-1.5 kcal/mL Liquid 120 ml PO 4X/DAY Qty: 0 0RF Continued (DME) HANDICAP PLACARD Qty: 1 0RF Dose Instruction: As directed Rx Instructions: Handicap Placard start 01/06/19 end 01/07/2024 Discontinued furosemide 40 mg tablet 40 mg PO DAILY Qty: 90 3RF metoprolol tartrate 25 mg tablet 25 mg PO BID Qty: 180 3RF warfarin 1 mg Tablet 0.5 mg PO MOTUWETHFR warfarin 1 mg tablet 1 mg PO SUSA Protocol: Dose Management Condition: Tuesday Dose/Route: 1 mg Instruction: 1 x 1 mg tablet Condition: Tuesday Dose/Route: 0 mg Instruction: 0 tablets Condition: Tuesday Dose/Route: 0.5 mg Instruction: 0.5 x 1 mg tablets Condition: Tuesday Dose/Route: 0.5 mg Instruction: 0.5 x 1 mg tablets Condition: Dose/Route: 0.5 mg Instruction: 0.5 x 1 mg tablets Condition: Tuesday Dose/Route: 0.5 mg Instruction: 0.5 x 1 mg tablets Condition: Tuesday Dose/Route: 0.5 mg Instruction: 0.5 x 1 mg tablets Protocol Text: Adjustment Start Date: Tuesday05/10/22 INR Value: 4.8 INR Date: 05/10/22 Recheck Date: 05/17/22 Rx Instructions: 1 mg PO daily or otherwise as directed lisinopril 5 mg tablet 5 mg PO DAILY Qty: 90 3RF atorvastatin 80 mg tablet 80 mg PO QHS Qty: 90 3RF metformin 500 mg tablet extended release 24 hr 500 mg PO DAILY 90 Days Qty: 90 3RF Referrals / Follow Up: Shahriar Haynes MD [Primary Care Provider] - Disposition Disposition (needs filled in before D/C Order can be placed): Hospice in Home Charges/Coding Visit Charges Inpatient E&M: 68863 Disch Hosp
--- NOTE | 2022-06-04 14:25 | CASEMGMT ---
ILSA spoke with Alida at Hospice. ILSA told Alida that patient wants to go home today. ILSA asked if the hospital bed could be delivered today. ILSA also asked if Hospice would be able to transport patient home. Alida said she has to check on that. Alida also said she is not sure if she has a nurse that can go out and open up patient's case tonight. She will get back to SW. Mandi FARIA
--- NOTE | 2022-06-04 14:43 | CHAPLAIN ---
Type of Pastoral Visit _x__ Initial Visit ___ Follow-up Visit ___ On-call Visit ___ General Patient Visit ___ Spiritual Assessment ___ Family Conference ___ Bereavement ___ Rapid Response ___ Code Blue ___ Other (describe below) Pastoral Care Referral From ___ Patient ___ Family ___ Nurse _x__ Physician ___ Respiratory Practitioner ___ Global Logistics Analyst ___ Other (describe below) Sacrament/Intervention _x__ Active listening ___ Anointing ___ Yarsanism ___ Bereavement ___ Communion ___ Nicolle exploration ___ ___ Life review _x__ Prayer ___ Reconciliation ___ Sacrament of Sick _x__ Supportive presence ___ Wedding _x__ Other (describe below) Pastoral Comments Doctor requested spiritual care for this patient as he is going home with hospice and she wanted him to have a little wooden cross to take home; met patient who was resting in his chair and introduced self and role; pt appears weakened and states that he is going home with hospice to because I want to on my own property; pt reports that initially I was told that I have maybe five months, and then it was five weeks, and now it may be a week; pt admits that this has been hard to process; offer of support, listening presence, and prayer; pt has low affect and little response but does say that he would like to have prayer; pt is not a member of a sabianism community and states I believe and I pray myself every day; pt expresses thanks for the brief visit
--- NOTE | 2022-06-04 15:40 | CASEMGMT ---
ILSA received a return call from Alida at Hospice. They cannot provide transportation. Gina Trevino ordered the equipment and will check to see when it will be delivered. Alida has a nurse that can open patient's case tomorrow between 1 and 2. ILSA told her SW will have to check to make sure that is okay. ILSA spoke with physician and it would be okay if journalism professor did not get out to the home until tomorrow between 1 and 2. Staff will have to arrange transport to get patient home. SW will find out when bed will be delivered and transportation can hopefully be arranged around that. Plan: Home with Hospice Mandi FARIA
--- NOTE | 2022-06-04 15:50 | CASEMGMT ---
Gina Trevino from Hospice said that patient's equipment has been delivered. Gina Trevino also told patient's that a dynamic etching processor will be out to open their case Tuesday between and 2. Mandi FARIA
--- NOTE | 2022-06-04 16:11 | PN_ITS ---
Subjective Subjective Patient has been sleeping on and off today. He is not having abdominal pain. His diet is not very good. He is becoming very jaundice. Objective Data Objective Data Vital Signs: Vital Signs Temp Pulse Resp BP Pulse Ox O2 Del Method O2 Flow Rate 98.6 F 95 14 122/82 H 92 Room Air 2 06/04/22 15:25 06/04/22 15:25 06/04/22 15:25 06/04/22 15:25 06/04/22 15:25 06/04/22 15:25 06/03/22 15:40 Oxygen Flow Rate (L/min) 2 Oxygen Delivery Method Room Air Weight: 206 lb 12.697 oz Body Mass Index (BMI) 28.8 Intake & Output: Intake and Output for Last 24 Hours 06/02/22 06/03/22 06/04/22 23:59 23:59 23:59 Intake Total 290 / 290 1390.5 / 1390.5 240 / 240 Output Total 600 / 600 250 / 250 Balance -310 / -310 1140.5 / 1140.5 240 / 240 Lab / Micro Data Result Diagrams: 06/04/22 05:40 06/04/22 05:40 Labs: Laboratory Results - last 24 hr 06/03/22 16:40: POC Glucose 167 H 06/03/22 22:41: POC Glucose 142 H 06/04/22 05:40: WBC 21.3 H, RBC 4.89, Hgb 13.9, Hct 41.6, MCV 85.1, MCH 28.4, MCHC 33.4, RDW Std Deviation 51.3 H, RDW Coeff of Ezequiel 17.7 H, Plt Count 92 L, MPV TNP, Immature Gran % (Auto) 1.000 H, Neut % (Auto) 84.0 H, Lymph % (Auto) 4.5 L, [place] % (Auto) 9.7, Eos % (Auto) 0.6, Baso % (Auto) 0.2, Absolute Neuts (auto) 17.9 H, Absolute Lymphs (auto) 0.95, Nucleated RBC % 0, Differential Comment SCANNED, Diff Path Review Reviewed, Platelet Estimate SLT 06/04/22 05:40: PT 27.3 H, INR 2.6 06/04/22 05:40: Sodium 132 L, Potassium 3.6, Chloride 97 L, Carbon Dioxide 25.0, Anion Gap 10, BUN 19 H, Creatinine 1.19, Estim Creat Clear Calc 61.52, Est GFR (MDRD) Af Amer 78, Est GFR (MDRD) Non-Af 64, BUN/Creatinine Ratio 16.0, Glucose 147 H, Calcium 7.9 L, Total Bilirubin 7.60 H, AST 118 H, ALT 71 H, Alkaline Phosphatase 647 H, Total Protein 6.4, Albumin 2.1 L, Globulin 4.3 H, Al bumin/Globulin Ratio 0.5 L 06/04/22 05:55: POC Glucose 172 H 06/04/22 11:12: POC Glucose 213 H Micro: Microbiology 05/31/22 16:11 Urine, Clean Catch Urine Culture - Final Culture exhibits no growth. Physical Exam Narrative Physical exam: General: Alert, Oriented x3, Cooperative, per and well, not on oxygen HEENT: Atraumatic Oral: Moist Mucosa Neck: Supple Lungs: Diminished to auscultation Cardiovascular: HS I+II, irregular, no murmurs Abdomen: Bowel Sounds Present, Soft, Non Tender Extremities: Left lower extremity swelling is improved Skin: No rashes, No breakdown Neurological: Grossly intact Psych/Mental Status: Appropriate Assessment & Plan Assessment/Plan (1) Liver metastases: PLAN: Metastatic colon cancer with obstructive jaundice causing altered mental status and possibly hyperammonia anemia. Patient is scheduled to undergo hos pice. Is not a surgical or medical candidate for treatment. He may benefit from lactulose therapy, ursodiol 250 mg twice a day and Xifaxan 500 mg twice a day while in the hospital. Since his cancer is progressing very fast point where is causing worsening liver disease and possible acute liver injury I do not think he would benefit from prophylactic stent placement. (2) Partial obstruction of colon: PLAN: If things change regarding liver status. For example a stabilized or study decrease then he would benefit from a stent placed a large bowel obstruction. Charges/Coding Visit Charges Inpatient E&M: 71242 Subs Hosp L2
--- NOTE | 2022-06-04 16:14 | CASEMGMT ---
Discharge Balance Engineer This publications writer called [facility]. motor tune up specialist time to go home will be 5:00pm. Nursing staff made aware. Asif LYLES Tentmaker
[2022-06-04 16:51] LABS: Bedside Glucose 189 mg/dL (74-106)
== END 2022-06-04 17:53 | disposition hospice, home (50) | DRG 375 ==
LOC: ED 20:23 → PCU 21:30
PROVIDERS: Internal Medicine Gastroenterology; Admitting Provider Family Medicine; Emergency Provider Emergency Medicine; PCP Family Medicine; Visit Provider Internal Medicine
PROC: 0DJD8ZZ Inspection of Lower Intestinal Tract, Via Natural or Artificial Opening Endoscopic (ICD-10-PCS; CPT 45378; principal; 2022-06-02 11:25)
DX: C19 Malignant neoplasm of rectosigmoid junction (principal); I82.412 Acute embolism and thrombosis of left femoral vein; I48.92 Unspecified atrial flutter; C78.7 Secondary malignant neoplasm of liver and intrahepatic bile duct; I50.32 Chronic diastolic (congestive) heart failure; I82.422 Acute embolism and thrombosis of left iliac vein; I82.432 Acute embolism and thrombosis of left popliteal vein; I82.442 Acute embolism and thrombosis of left tibial vein; I82.452 Acute embolism and thrombosis of left peroneal vein; K62.5 Hemorrhage of anus and rectum; N39.0 Urinary tract infection, site not specified; K72.90 Hepatic failure, unspecified without coma; I11.0 Hypertensive heart disease with heart failure; E11.9 Type 2 diabetes mellitus without complications; I48.0 Paroxysmal atrial fibrillation; E27.9 Disorder of adrenal gland, unspecified; I82.462 Acute embolism and thrombosis of left calf muscular vein; I25.10 Atherosclerotic heart disease of native coronary artery without angina pectoris; E78.00 Pure hypercholesterolemia, unspecified; R47.81 Slurred speech; R79.1 Abnormal coagulation profile; E66.9 Obesity, unspecified; Z79.01 Long term (current) use of anticoagulants; Z79.84 Long term (current) use of oral hypoglycemic drugs; Z79.899 Other long term (current) drug therapy; Z86.73 Personal history of transient ischemic attack (TIA), and cerebral infarction without residual deficits
CPT/HCPCS: 36415; 70450; 71045; 74177; 80053; 81001; 82140; 82962; 84484; 85025; 85610; 85730; 86900; 86901; 87086; 87088; 88305; 88341; 88342; 93005; 93971; 97162; 97166; 97802; 97803; 99285; J7030; J7050; J7120; P9017; Q9967; A4216; J1940; J2405; J3490